=== PATIENT | male | born 1990 | race Caucasian/White ===

== ENCOUNTER 2016-10-04 01:25 | Inpatient (IN) | payer BC ==
[~2016-10-04] VITALS: Ht 198.1 cm; Wt 61.1 kg
[2016-10-04] VITALS (15 sets, daily range): BP systolic 82–141; BP diastolic 48–92; PULSE 70–116; RESP 16–18; TEMP 97.8–100; O2SAT 96–100
[~2016-10-04 01:25] MED LIST: ACET5SOL5 PO; ALBU8I INH; BENZ100 PO; ZITH250T PO; ZOFR4TAB3 SL
[2016-10-04] MEDS ORDERED: SERO200T PO (01:49)
[2016-10-04] MEDS ORDERED: PROZ20CA11 PO (01:49)
[2016-10-04 02:19] LABS: AUTOMATED NEUTROPHIL # 12.6 TH/MM3 (1.8-7.7); BASOPHIL # 0.1 TH/MM3 (0-0.2); BASOPHIL % 0.5 % (0.0-2.0); EOSINOPHIL # 0.8 TH/MM3 (0-0.4); EOSINOPHIL % 4.5 % (0.0-4.0); HEMATOCRIT 45.5 % (39.0-51.0); HEMO FLAGS DIFF FINAL; LYMPH % 17.9 % (9.0-44.0); LYMPHOCYTE # 3.2 TH/MM3 (1.0-4.8); MEAN CELL VOLUME 88.6 FL (80.0-100.0); MEAN CORPUSCULAR HEMOGLOBIN 30.6 PG (27.0-34.0); MEAN CORPUSCULAR HGB CONC 34.6 % (32.0-36.0); MONO % 7.3 % (0.0-8.0); NEUT % 69.8 % (16.0-70.0); PLATELET COUNT 279 TH/MM3 (150-450); RED BLOOD COUNT 5.13 MIL/MM3 (4.50-5.90); RED CELL DISTRIBUTION WIDTH 13.7 % (11.6-17.2); WHITE BLOOD COUNT 18.1 TH/MM3 (4.0-11.0)
[2016-10-04 02:29] LABS: BLOOD, URINE NEG (NEG); COMMENT (UR) CULT NOT INDICATED; CULTURE IF INDICATED CULT NOT INDICATED; GLUCOSE,URINE NEG (NEG); KETONE, URINE NEG (NEG); MUCUS URINE FEW /lpf (OCC); NITRITE,URINE NEG (NEG); SQUAMOUS EPITHELIAL CELL URINE <1 /hpf (0-5); URINE COLOR YELLOW (YELLW/STRAW)
[2016-10-04 02:35] LABS: ALT (GPT) 171 U/L (12-78); ANION GAP 7 MEQ/L (5-15); AST (GOT) 60 U/L (15-37); BICARBONATE 28.7 MEQ/L (21.0-32.0); BLOOD UREA NITROGEN 6 MG/DL (7-18); CHLORIDE 106 MEQ/L (98-107); GLOMERULAR FILTRATION RATE 93 ML/MIN (>89); POTASSIUM 3.2 MEQ/L (3.5-5.1); SODIUM (NA) 142 MEQ/L (136-145)
--- NOTE | 2016-10-04 02:35 | PD ---
HPI Chief Complaint: OD/ Ingestion Time Seen by Provider: 01:44 Travel History International Travel<30 days: No Contact w/Intl Traveler<30days: No Traveled to known affect area: No History of Present Illness HPI 26-year-old male was brought in by his sister for medication overdose. Patient states that he drank a large size of a bottle of Robitussin about 40 minutes prior to arrival. Patient states that he also took a handful of Benadryl tablets at the same time. Patient states that he is feeling drowsy. Patient states that he has mild headache. Patient states that he has mild intermittent chest pain or shortness of breath. Patient states that he has some abdominal cramping. Patient states that he has nausea but no vomiting or diarrhea. Patient denies any fever chills. Patient denies any back pain. Patient denies any focal weakness or numbness of the extremity. Patient denies any alcohol or illicit drug abuse. Patient states that he smoked pot once in a while. Patient states that he is feeling depressed recently. Patient has history of anxiety, asthma, hepatitis C, kidney stone and migraine and seizure. Questionable history of ulcerative colitis. PFSH Past Medical History Hx Anticoagulant Therapy: No ADHD: Yes Asthma: Yes (Patient states last attack in November of 2014) Bipolar Disorder: Yes Anxiety: Yes Depression: Yes Heart Rhythm Problems: No Cardiovascular Problems: Yes (HTN) High Cholesterol: No Chemotherapy: No Chest Pain: No Congestive Heart Failure: No COPD: No Cerebrovascular Accident: No Diabetes: No Diminished Hearing: No Endocrine: No Gastrointestinal Disorders: Yes (ULCERS, COLITIS) Genitourinary: Yes Headaches: Yes Hepatitis: Yes (C) Hypertension: Yes Immune Disorder: No Implanted Vascular Access Dvce: No Kidney Stones: Yes (Passed stones at age 20) Musculoskeletal: Yes Neurologic: Yes Psychiatric: Yes (Inpatient, outpatient, diagnosis and psychotropic medications ) Reproductive: Yes (per pt-told at age 20 he was infertile d/t Meth use but has child ) Respiratory: Yes (SPORTS INDUCED ASTHMA) Immunizations Current: Yes Migraines: Yes Seizures: Yes (Per patient, photosensitive epilepsy dx in 2014 due to weaning off of Xanax) Sleep Apnea: No Ulcer: Yes (UPPER AND LOWER GI BLEEDS ) Past Surgical History Abdominal Surgery: Yes (GI study for ulcers) Cardiac Surgery: No Ear Surgery: No Endocrine Surgery: No Eye Surgery: No Genitourinary Surgery: No Gynecologic Surgery: No Hysterectomy: No Oral Surgery: Yes ([place] Tooth pulled in 2012) Thoracic Surgery: No Other Surgery: Yes Social History Alcohol Use: No Tobacco Use: Yes (1PPD) Substance Use: No (MARIJUANA, hx of RX DRUGS) Allergies-Medications (Allergen,Severity, Reaction): Coded Allergies: Geodon (Verified Allergy, Severe, Anaphylaxis, 10/04/16) Penicillin (Verified Allergy, Severe, Anaphylaxis, 10/04/16) Codeine (Verified Allergy, Intermediate, ITCHING, 10/04/16) Ultram (Verified Allergy, Intermediate, GI UPSET, 10/04/16) Heparin (Unverified Allergy, Mild, 10/04/16) Compazine (Verified Allergy, Unknown, rash, 10/04/16) Levaquin (Verified Allergy, Unknown, 10/04/16) Reported Meds & Prescriptions Reported Meds & Active Scripts Active Reported Prozac (Fluoxetine HCl) 20 Mg Cap 20 Mg PO DAILY Seroquel (Quetiapine Fumarate) 200 Mg Tab 200 Mg PO BID Review of Systems General / Constitutional: No: Fever Eyes: No: Visual changes HENT: No: Headaches Cardiovascular: No: Chest Pain or Discomfort Respiratory: No: Shortness of Breath Gastrointestinal: No: Abdominal Pain Genitourinary: No: Dysuria Musculoskeletal: No: Pain Skin: No Rash Neurologic: No: Weakness Psychiatric: No: Depression Endocrine: No: Polydipsia Hematologic/Lymphatic: No: Easy Bruising Physical Exam Narrative GENERAL: Well-nourished, well-developed patient. SKIN: Warm and dry. HEAD: Normocephalic. EYES: No scleral icterus. No injection or drainage. Pupils 3 mm equal reactive. NECK: Supple, trachea midline. No JVD or lymphadenopathy. CARDIOVASCULAR: Regular rate and rhythm without murmurs, gallops, or rubs. RESPIRATORY: Breath sounds equal bilaterally. No accessory muscle use. GASTROINTESTINAL: Abdomen soft, non-tender, nondistended. MUSCULOSKELETAL: No cyanosis, or edema. BACK: Nontender without obvious deformity. No CVA tenderness. Data Data Last Documented VS Vital Signs Date Time Temp Pulse Resp B/P Pulse Ox O2 Delivery O2 Flow Rate FiO2 10/04/16 02:13 88 18 120/82 96 Room Air 10/04/16 01:27 98.4 Orders Electrocardiogram (10/04/16 02:03) Alcohol (Ethanol) (10/04/16 02:03) Basic Metabolic Panel (Bmp) (10/04/16 02:03) Complete Blood Count With Diff (10/04/16 02:03) Comprehensive Metabolic Panel (10/04/16 02:03) Drug Screen, Random Urine (10/04/16 02:03) Salicylates (Aspirin) (10/04/16 02:03) Tylenol (Acetaminophen) (10/04/16 02:03) Urinalysis - C+S If Indicated (10/04/16 02:03) Iv Access Insert/Monitor (10/04/16 02:03) Ecg Monitoring (10/04/16 02:03) Oximetry (10/04/16 02:03) Psych Screen (10/04/16 02:03) Labs Laboratory Tests Test 10/04/16 02:10 White Blood Count 18.1 TH/MM3 Red Blood Count 5.13 MIL/MM3 Hemoglobin 15.7 GM/DL Hematocrit 45.5 % Mean Corpuscular Volume 88.6 FL Mean Corpuscular Hemoglobin 30.6 PG Mean Corpuscular Hemoglobin 34.6 % Concent Red Cell Distribution Width 13.7 % Platelet Count 279 TH/MM3 Mean Platelet Volume 9.6 FL Neutrophils (%) (Auto) 69.8 % Lymphocytes (%) (Auto) 17.9 % Monocytes (%) (Auto) 7.3 % Eosinophils (%) (Auto) 4.5 % Basophils (%) (Auto) 0.5 % Neutrophils # (Auto) 12.6 TH/MM3 Lymphocytes # (Auto) 3.2 TH/MM3 Monocytes # (Auto) 1.3 TH/MM3 Eosinophils # (Auto) 0.8 TH/MM3 Basophils # (Auto) 0.1 TH/MM3 CBC Comment DIFF FINAL Differential Comment Urine Color YELLOW Urine Turbidity CLOUDY Urine pH 7.0 Urine Specific Presto 1.017 Urine Protein NEG mg/dL Urine Glucose (UA) NEG mg/dL Urine Ketones NEG mg/dL Urine Occult Blood NEG Urine Nitrite NEG Urine Bilirubin NEG Urine Urobilinogen 4.0 MG/DL Urine Leukocyte Esterase NEG Urine Squamous Epithelial <1 /hpf Cells Urine Amorphous Sediment MOD Urine Mucus FEW /lpf Microscopic Urinalysis Comment CULT NOT INDICATED Sodium Level 142 MEQ/L Potassium Level 3.2 MEQ/L Chloride Level 106 MEQ/L Carbon Dioxide Level 28.7 MEQ/L Anion Gap 7 MEQ/L Blood Urea Nitrogen 6 MG/DL Creatinine 0.99 MG/DL Estimat Glomerular Filtration 93 ML/MIN Rate Random Glucose 113 MG/DL Calcium Level 9.3 MG/DL Total Bilirubin 0.7 MG/DL Aspartate Amino Transf 60 U/L (AST/SGOT) Alanine Aminotransferase 171 U/L (ALT/SGPT) Alkaline Phosphatase 81 U/L Total Protein 7.5 GM/DL Albumin 4.1 GM/DL Salicylates Level 2.4 MG/DL Urine Opiates Screen NEG Acetaminophen Level LESS THAN 2.0 MCG/ML Urine Barbiturates Screen NEG Urine Amphetamines Screen NEG Urine Benzodiazepines Screen NEG Urine Cocaine Screen NEG Urine Cannabinoids Screen POS Ethyl Alcohol Level LESS THAN 3 MG/DL MDM Medical Decision Making Medical Screen Exam Complete: Yes Emergency Medical Condition: Yes Interpretation(s) 2:35 AM. EKG shows sinus rhythm nonspecific ST-T wave change. Differential Diagnosis Differential diagnosis including drug overdose, depression, suicidal. Narrative Course 26-year-old male with overdose on Robitussin and Benadryl. Poison control contacted. Advised observation. 3:03 AM. Patient is medically cleared for psychiatric evaluation and disposition. Diagnosis Primary Impression: Intentional drug overdose Qualified Code: T50.902A - Intentional drug overdose, initial encounter Kevin Moon MD Oct 04, 2016 02:35
[2016-10-04 02:38] LABS: ALKALINE PHOSPHATASE 81 U/L (45-117); TOTAL BILIRUBIN ADULT 0.7 MG/DL (0.2-1.0)
[2016-10-04 02:40] LABS: ACETAMINOPHEN LESS THAN 2.0 MCG/ML (10.0-30.0); AMPHETAMINE, URINE NEG (NEG); BARBITURATES, URINE NEG (NEG); COCAINE, URINE NEG (NEG)
[2016-10-04] MEDS ORDERED: SODIUM CHLOR 0.9% 1000 ML INJ 1,000 ML IV ONE (06:45)
[2016-10-04] MEDS ORDERED: POTASSIUM CHLORIDE 20 MEQ CONTROLLED RELEASE TAB PO ONE (07:15)
--- NOTE | 2016-10-04 08:31 | EKG ---
Date Performed: 10/04/2016 Time Performed: 01:48:12 PTAGE: 26 years EKG: Sinus rhythm POSSIBLE RIGHT ATRIAL ENLARGEMENT POSSIBLE LEFT ATRIAL ENLARGEMENT POSSIBLE RIGHT VENTRICULAR CONDUC TION DELAY BORDERLINE ECG NO PREVIOUS TRACING DOCTOR: Harjinder Ruelas Interpretating Date/Time 10/04/2016 08:29:28
[2016-10-05 02:10] VITALS: BP 108/57; PULSE 73; RESP 18; O2SAT 98
[2016-10-05 06:27] VITALS: BP 131/66; PULSE 76; RESP 18; TEMP 97.1; O2SAT 98
--- NOTE | 2016-10-05 10:38 | PD ---
History of Present Illness Chief Complaint: OD/ Ingestion Time Seen by Provider: 10:00 Travel History International Travel<30 Days: No Contact w/Intl Traveler<30days: No Known affected area: No Legal Status Legal Status: Voluntary History of Present Illness: History of Present Illness HPI 26-year-old male with history of substance abuse, substance induced mood disorder, depressive disorder, nos who was brought in by his sister after an alleged overdose. As per patient states that he drank a large size of a bottle of Robitussin about 40 minutes prior to arrival to ED. Patient states that he also took a handful of Benadryl tablets at the same time. Patient has been monitored in [facility] and he has not presented any behavioral concerns or suicidality. Patient's toxicology is positive for cannabinoids. He states that he had been drinking heavily up until 1 and 1/2 week ago. Again he is vague regarding quantities. As per EMR review this patient has had several visit to ed as well as admissions to [facility] for suicidal gestures. Last admission was February 2015 . He reports that he stopped outpatient treatment at [facility] due to financial concerns. He reports he has not had medications in 4 months but unable to tell me what medications he had been taking. Patient is seen in [facility]. Asleep . He awakens easily. He is alert, oriented, decreased eye contact. He states " I don't want to be here". Upon questioning he states " I want to be . I don't want to live any more". Reports that he has been experiencing stressors involving having found out his is cheating on him, not allowing him to see his children, quit his job one week ago and being homeless. Mood is described as depressed, hopeless. Endorses continued suicidal ideation and states " That's all I have been thinking about . I was sitting with a gun in my mouth for the past week". PFSH Past Medical History Hx Anticoagulant Therapy: No ADHD: Yes Asthma: Yes (Patient states last attack in November of 2014) Bipolar Disorder: Yes Anxiety: Yes Depression: Yes Heart Rhythm Problems: No Cardiovascular Problems: Yes (HTN) High Cholesterol: No Chemotherapy: No Chest Pain: No Congestive Heart Failure: No COPD: No Cerebrovascular Accident: No Diabetes: No Diminished Hearing: No Endocrine: No Gastrointestinal Disorders: Yes (ULCERS, COLITIS) Genitourinary: Yes Headaches: Yes Hepatitis: Yes (C) Hypertension: Yes Immune Disorder: No Implanted Vascular Access Dvce: No Kidney Stones: Yes (Passed stones at age 20) Musculoskeletal: Yes Neurologic: Yes Psychiatric: Yes (Inpatient, outpatient, diagnosis and psychotropic medications ) Reproductive: Yes (per pt-told at age 20 he was infertile d/t Meth use but has child ) Respiratory: Yes (SPORTS INDUCED ASTHMA) Immunizations Current: Yes Migraines: Yes Seizures: Yes (Per patient, photosensitive epilepsy dx in 2013 due to weaning off of Xanax) Sleep Apnea: No Ulcer: Yes (UPPER AND LOWER GI BLEEDS ) Past Surgical History Abdominal Surgery: Yes (GI study for ulcers) Cardiac Surgery: No Ear Surgery: No Endocrine Surgery: No Eye Surgery: No Genitourinary Surgery: No Gynecologic Surgery: No Hysterectomy: No Oral Surgery: Yes ([place] Tooth pulled in 2011) Thoracic Surgery: No Other Surgery: Yes Psychiatric History Psychiatric History Hx Psychiatric Treatment: HX OF Bipolar Disorder, PTSD, and ADHD as per reynaldo History of Inpatient Treatment: Yes ([facility]. Reports at least 6 hosp in [facility]. ) Social History male. has 2 children. Unemployed. Hx Alcohol Use: No Hx Tobacco Use: Yes (1PPD) Hx Substance Use: Yes (MARIJUANA, hx of RX DRUGS) Substance Use Type: Alcohol, Marijuana, Benzos (Valium,Xanax), Cough-Cold Pills Other Substances Used: Patient admits to weekly binge drinking Hx of Substance Use Treatment: Yes Family Psychiatric History None reported Allergies-Medications (Allergen,Severity, Reaction): Coded Allergies: Geodon (Verified Allergy, Severe, Anaphylaxis, 10/04/16) Penicillin (Verified Allergy, Severe, Anaphylaxis, 10/04/16) Codeine (Verified Allergy, Intermediate, ITCHING, 10/04/16) Ultram (Verified Allergy, Intermediate, GI UPSET, 10/04/16) Heparin (Unverified Allergy, Mild, 10/04/16) Compazine (Verified Allergy, Unknown, rash, 10/04/16) Levaquin (Verified Allergy, Unknown, 10/04/16) Reported Meds & Prescriptions Reported Meds & Active Scripts Active Reported Prozac (Fluoxetine HCl) 20 Mg Cap 20 Mg PO DAILY Seroquel (Quetiapine Fumarate) 200 Mg Tab 200 Mg PO BID Review of Systems Except as stated in HPI: all other systems reviewed are Neg Psychiatric: COMPLAINS OF: Depression, Suicidal Ideation Exam Alert: Yes [place]: Person (ox4) Mood: Depressed Affect: Other (tearful) Speech: Clear, Logical Eye Contact: Indirect Memory Intact: Comment (not impaired) Hallucinations: Other (negative) Delusions: No Suicidal: Ideation (shoot himself, take pills ) Homicidal: Ideation (negative) Insight/Judgement poor. poor MDM Medical Decision Making Medical Record Reviewed: Yes Assessment/Plan 26 year old male under a voluntary status who alledgedly took an overdose of cough medication as well as Benadryl in a suicidal gesture. He has a hx of previous suicide attempts as well as hx of substance induced mood disorder. Patient admits to increase in use of marijuana as well as stressors related to marital infidelity. At this time patient patient continues to endorse suicidal ideation and depression. Patient will be admitted to [facility] for stabilization, further observation, safety as well as to restrt psychiatric medications. . Orders Diet Regular Basic (10/04/16 Dinner) Diet Regular Basic (10/05/16 Breakfast) Results Vital Signs Date Time Temp Pulse Resp B/P Pulse Ox O2 Delivery O2 Flow Rate FiO2 10/05/16 06:27 97.1 76 18 131/66 98 Room Air 10/05/16 02:10 73 18 108/57 98 Room Air 10/04/16 22:00 84 18 98/56 100 Room Air 10/04/16 17:55 82 18 116/69 97 Room Air 10/04/16 15:30 100.0 77 18 121/73 99 Room Air 10/04/16 15:15 97.8 88 17 106/68 99 10/04/16 12:40 97.8 76 16 105/61 99 Room Air 10/04/16 11:33 97.8 78 18 90/68 99 Room Air Diagnosis Primary Impression: Substance induced mood disorder Additional Impression: Intentional drug overdose Admitting Information Admitting Physician Requests: Admit (Dr. Lorenzo) Problem Qualifiers Additional Impression: Intentional drug overdose Qualified Code: T50.902A - Intentional drug overdose, initial encounter Shwetha Nolan ARN Oct 05, 2016 10:38
[2016-10-05] MEDS ORDERED: MAGNESIUM HYDROXIDE SUSP 30 ML CUP PO PRN (11:15)
[2016-10-05] MEDS ORDERED: ALUMINUM/MAGNESIUM/SIMETH 30 ML CUP PO PRN (11:15)
[2016-10-05] MEDS ORDERED: ACETAMINOPHEN 325 MG TAB PO PRN (11:15)
[2016-10-05] MEDS ORDERED: LORazepam 2 MG TAB PO ONE (12:30)
[2016-10-05 12:40] VITALS: BP 127/71; PULSE 82; RESP 18; TEMP 98.3; O2SAT 99
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
[2016-10-05] MEDS: FLUoxetine HCL 20 MG CAP PO SCH (16:19)
[2016-10-05] MEDS: QUEtiapine FUMARATE 100 MG TAB PO SCH ×2 (16:20→20:50)
[2016-10-05 20:48] VITALS: BP 128/74; PULSE 76; RESP 16; TEMP 98.4; O2SAT 100
[2016-10-05] MEDS: LORazepam 0.5 MG TAB PO PRN (21:25)
[2016-10-06 06:01] VITALS: BP 110/77; PULSE 83; RESP 16; TEMP 97.4; O2SAT 100
[2016-10-06 08:06] LABS: ANION GAP 4 MEQ/L (5-15); BICARBONATE 30.2 MEQ/L (21.0-32.0); BLOOD UREA NITROGEN 12 MG/DL (7-18); CHLORIDE 107 MEQ/L (98-107); GLOMERULAR FILTRATION RATE 104 ML/MIN (>89); SODIUM (NA) 141 MEQ/L (136-145)
[2016-10-06 08:08] LABS: HDL CHOLESTEROL 32.8 MG/DL (40.0-60.0); LDL CHOLESTEROL 48 MG/DL (0-99)
[2016-10-06] MEDS: FLUoxetine HCL 20 MG CAP PO SCH (09:11)
[2016-10-06] MEDS: QUEtiapine FUMARATE 100 MG TAB PO SCH ×2 (09:11→20:37)
--- NOTE | 2016-10-06 10:30 | HHI.PYPN ---
Subjective Remarks Patient was seen and discussed with the staff occupational therapist. Patient claimed that he still has been feeling depressed worried about his family and future. But he could be reassured. He feels safe in the hospital. He slept okay. The medication is helping him. No side effects were complained. No behavior problem reported. Continue with the same treatment Review of Systems Except as stated in HPI: all other systems reviewed are Neg Psychiatric: COMPLAINS OF: Mood changes, Depression Objective Alert: Yes [place]: Person (ox4) Mood: Depressed Affect: Blunted Memory Intact: Comment (not impaired) Hallucinations: Other (negative) Delusions: No Delusion Type: Other Suicidal: Ideation (patient feels safe in the hospital denied any suicidal ideation or plan but feels sad) Homicidal: Ideation (negative) Insight/Judgement Fair Remarks Attention and concentration improving. Gait normal. Language normal. Fund of knowledge average Labs Test 10/06/16 07:03 Sodium Level 141 MEQ/L Potassium Level 4.0 MEQ/L Chloride Level 107 MEQ/L Carbon Dioxide Level 30.2 MEQ/L Anion Gap 4 MEQ/L Blood Urea Nitrogen 12 MG/DL Creatinine 0.90 MG/DL Estimat Glomerular Filtration 104 ML/MIN Rate Random Glucose 85 MG/DL Calcium Level 8.8 MG/DL Triglycerides Level 81 MG/DL Cholesterol Level 97 MG/DL LDL Cholesterol 48 MG/DL HDL Cholesterol 32.8 MG/DL Cholesterol/HDL Ratio 2.95 RATIO Vitals/IOs Vital Signs Date Time Temp Pulse Resp B/P Pulse Ox O2 Delivery O2 Flow Rate FiO2 10/06/16 06:01 97.4 83 16 110/77 100 10/05/16 06:27 Room Air Assessment & Plan Problem List: (1) Major depression, recurrent, chronic ICD Code: F33.9 (2) Substance induced mood disorder ICD Code: F19.94 Assessment & Plan Estimated LOS: days Justification for Cont. Inpt. Risk for safety and decompensation Request HC Surrog/Guard Advoc?: No Jerson Lorenzo MD Oct 06, 2016 10:30
[2016-10-06] MEDS: NICOTINE 21 MG/24 HR PATCH TD SCH (11:00)
[2016-10-06] MEDS: LORazepam 0.5 MG TAB PO PRN ×2 (14:05→21:23)
[2016-10-06 15:54] LABS: HEMOGLOBIN A1a 0.9 %; HEMOGLOBIN A1b 1.4 %; HEMOGLOBIN LA1C 1.8 %; HEMOGLOBIN P3 3.4 %
[2016-10-06 20:51] VITALS: BP 118/72; PULSE 106; RESP 16; TEMP 98.2; O2SAT 98
[2016-10-07 06:37] VITALS: BP 116/80; PULSE 89; RESP 18; TEMP 98.2; O2SAT 99
[2016-10-07] MEDS: NICOTINE 21 MG/24 HR PATCH TD SCH (08:41)
[2016-10-07] MEDS: FLUoxetine HCL 20 MG CAP PO SCH (08:41)
[2016-10-07] MEDS: QUEtiapine FUMARATE 100 MG TAB PO SCH (08:41)
[2016-10-07] MEDS: LORazepam 0.5 MG TAB PO PRN ×2 (08:57→18:36)
--- NOTE | 2016-10-07 10:15 | HHI.PYPN ---
Subjective Remarks Patient was seen and discussed with the bellstaff. Patient reported that he still has been feeling depressed frustrated isolated worried about his children but he could be reassured patient also reported that he has nightmares about losing his children and has been crying. He is also getting easily upset mad and occasionally admitted to hearing voices. His appetite is poor. No behavior or management problem reported. He was encouraged to participate in all treatment activity. And will increase his medication. Review of Systems Except as stated in HPI: all other systems reviewed are Neg Psychiatric: COMPLAINS OF: Mood changes, Depression, Hallucinations Objective Alert: Yes [place]: Person (ox4) Mood: Depressed Affect: Blunted Memory Intact: Comment (not impaired) Hallucinations: Other (occasionally hears voices and has nightmare) Delusions: No Delusion Type: Other Suicidal: Ideation (patient feels safe in the hospital denied any suicidal ideation or plan but feels sad) Homicidal: Ideation (negative) Insight/Judgement Fair to limited Vitals/IOs Vital Signs Date Time Temp Pulse Resp B/P Pulse Ox O2 Delivery O2 Flow Rate FiO2 10/07/16 06:37 98.2 89 18 116/80 99 10/05/16 06:27 Room Air Intake and Output 10/06/16 10/06/16 10/07/16 08:00 16:00 00:00 Intake Total 240 ml Balance 240 ml Assessment & Plan Problem List: (1) Major depression, recurrent, chronic ICD Code: F33.9 (2) Substance induced mood disorder ICD Code: F19.94 Assessment & Plan Estimated LOS: days Justification for Cont. Inpt. Risk of decompensation and safety issue Request HC Surrog/Guard Advoc?: No Jerson Lorenzo MD Oct 07, 2016 10:15
[2016-10-07] MEDS: QUEtiapine FUMARATE 200 MG TAB PO SCH ×2 (13:56→18:36)
[2016-10-07 19:00] VITALS: BP 134/76; PULSE 100; RESP 18; TEMP 98.3; O2SAT 97
[2016-10-08 05:37] VITALS: BP 97/55; PULSE 71; RESP 16; TEMP 98.1; O2SAT 98
[2016-10-08] MEDS: QUEtiapine FUMARATE 200 MG TAB PO SCH ×3 (08:21→17:01)
[2016-10-08] MEDS: FLUoxetine HCL 20 MG CAP PO SCH (08:21)
[2016-10-08] MEDS: NICOTINE 21 MG/24 HR PATCH TD SCH (08:22)
[2016-10-08] MEDS: LORazepam 0.5 MG TAB PO PRN ×2 (08:58→17:17)
--- NOTE | 2016-10-08 10:18 | HHI.PYPN ---
Subjective Remarks Patient was seen and discussed with the wait staff. Patient reported that he has been feeling more depressed and sad because of his son's birthday today he still has lot of nightmares that frustrates him. But he is not crying. He is trying to do the best that he can and accept the situation that he is in. Denied any suicidal ideation intentions or plan. Denied any active auditory or visual hallucinations. No behavior or management problem reported. Continue with the same treatment. Review of Systems Except as stated in HPI: all other systems reviewed are Neg Psychiatric: COMPLAINS OF: Mood changes, Depression Objective Alert: Yes [place]: Person (ox4) Mood: Depressed Affect: Blunted Memory Intact: Comment (not impaired) Hallucinations: Other (occasionally hears voices and has nightmare) Delusions: No Delusion Type: Other Suicidal: Ideation (patient feels safe in the hospital denied any suicidal ideation or plan but feels sad) Homicidal: Ideation (negative) Insight/Judgement Limited Vitals/IOs Vital Signs Date Time Temp Pulse Resp B/P Pulse Ox O2 Delivery O2 Flow Rate FiO2 10/08/16 05:37 98.1 71 16 97/55 98 10/05/16 06:27 Room Air Assessment & Plan Problem List: (1) Major depression, recurrent, chronic ICD Code: F33.9 (2) Substance induced mood disorder ICD Code: F19.94 Assessment & Plan Estimated LOS: days Justification for Cont. Inpt. Monitoring the medication and risk of decompensation Request HC Surrog/Guard Advoc?: No Jerson Lorenzo MD Oct 08, 2016 10:18
[2016-10-08 19:26] VITALS: BP 131/74; PULSE 119; RESP 16; TEMP 98.5; O2SAT 98
[2016-10-09 05:31] VITALS: BP 111/56; PULSE 70; RESP 18; TEMP 97.3; O2SAT 98
[2016-10-09] MEDS: FLUoxetine HCL 20 MG CAP PO SCH (08:51)
[2016-10-09] MEDS: QUEtiapine FUMARATE 200 MG TAB PO SCH ×3 (08:51→20:44)
[2016-10-09] MEDS: NICOTINE 21 MG/24 HR PATCH TD SCH (08:51)
[2016-10-09] MEDS: LORazepam 0.5 MG TAB PO PRN (09:24)
--- NOTE | 2016-10-09 17:34 | HHI.PYPN ---
Subjective Remarks Pt seen and discussed with staff. Pt c/o of continued depression and anxiety. He denies SI/HI. He reports high anxiety today due to finding out is and other stressors. No medication side effects. Objective Alert: Yes [place]: Person (ox4) Mood: Anxious, Depressed Affect: Blunted Memory Intact: Comment (not impaired) Hallucinations: Other (occasionally hears voices and has nightmare) Delusions: No Delusion Type: Other (none) Suicidal: Ideation (denies) Homicidal: Ideation (denies) Insight/Judgement poor Vitals/IOs Vital Signs Date Time Temp Pulse Resp B/P Pulse Ox O2 Delivery O2 Flow Rate FiO2 10/09/16 05:31 97.3 70 18 111/56 98 Assessment & Plan Problem List: (1) Major depression, recurrent, chronic ICD Code: F33.9 (2) Substance induced mood disorder ICD Code: F19.94 Assessment & Plan Continue current tx plan. Vistaril for anxiety. Estimated LOS: days Justification for Cont. Inpt. risk of decompensation Request HC Surrog/Guard Advoc?: No Narcisa Quarles MD Oct 09, 2016 17:34
[2016-10-09 18:54] VITALS: BP 141/92; PULSE 131; RESP 18; TEMP 98.3; O2SAT 98
[2016-10-09] MEDS: hydrOXYzine PAMOATE 25 MG CAP PO PRN (21:17)
[2016-10-10 06:00] VITALS: BP 144/56; PULSE 79; RESP 17; TEMP 97.7; O2SAT 97
[2016-10-10] MEDS: NICOTINE 21 MG/24 HR PATCH TD SCH (08:25)
[2016-10-10] MEDS: QUEtiapine FUMARATE 200 MG TAB PO SCH ×3 (08:25→18:14)
[2016-10-10] MEDS: FLUoxetine HCL 20 MG CAP PO SCH (08:25)
[2016-10-10] MEDS: hydrOXYzine PAMOATE 25 MG CAP PO PRN ×2 (09:45→18:26)
--- NOTE | 2016-10-10 12:03 | HHI.PYPN ---
Subjective Remarks Pt seen and discussed with staff. He is tearful and states that he called his and heard another man in the background. He states that his refused to take his phone call or allow him to speak with his children. He states that the thought of never seeing his kids makes him want to , but denies active SI plan. Supportive psychotherapy interventions provided. He is compliant with medications and denies side effects. Poor coping skills. He attended AA group voluntarily yesterday. No side effects from vistaril and reports effective. Objective Alert: Yes [place]: Person, Place, Date, Situation Mood: Anxious, Depressed Affect: Other (tearful) Memory Intact: Comment (intact) Hallucinations: Other (occasionally hears voices and has nightmare) Delusions: No Delusion Type: Other (none) Suicidal: Ideation (denies active plan, but reports vague ideation related to family stressors) Homicidal: Ideation (denies) Insight/Judgement poor Vitals/IOs Vital Signs Date Time Temp Pulse Resp B/P Pulse Ox O2 Delivery O2 Flow Rate FiO2 10/10/16 06:00 97.7 79 17 144/56 97 Assessment & Plan Problem List: (1) Major depression, recurrent, chronic ICD Code: F33.9 (2) Substance induced mood disorder ICD Code: F19.94 Assessment & Plan Continue current tx plan. Estimated LOS: days Justification for Cont. Inpt. impairments in safety Request HC Surrog/Guard Advoc?: No Narcisa Quarles MD Oct 10, 2016 12:03
[2016-10-10 18:33] VITALS: BP 124/77; PULSE 110; RESP 18; TEMP 98.3; O2SAT 97
[2016-10-11 05:16] VITALS: BP 107/52; PULSE 88; RESP 16; TEMP 97.6; O2SAT 98
[2016-10-11] MEDS: FLUoxetine HCL 20 MG CAP PO SCH (08:35)
[2016-10-11] MEDS: QUEtiapine FUMARATE 200 MG TAB PO SCH ×3 (08:35→16:43)
[2016-10-11] MEDS: NICOTINE 21 MG/24 HR PATCH TD SCH (08:36)
[2016-10-11] MEDS: hydrOXYzine PAMOATE 25 MG CAP PO PRN (09:23)
[2016-10-11] MEDS: LORazepam 0.5 MG TAB PO PRN ×3 (11:10→21:22)
--- NOTE | 2016-10-11 11:14 | HHI.PYPN ---
Subjective Remarks Patient was seen and discussed with the medical staff coordinator. Patient reported that he still has been feeling anxious nervous and depressed frustrated. Tends to isolate himself and keeps to himself. But no behavior or management problem reported. He claimed that the medication seems to be helping but it doesn't last long enough to calm his anxiety down. He could be reassured. Denied any suicidal ideation intentions or plan. Continue with the same treatment Review of Systems Except as stated in HPI: all other systems reviewed are Neg Psychiatric: COMPLAINS OF: Mood changes, Depression Objective Alert: Yes [place]: Person, Place, Date, Situation Mood: Anxious, Depressed Affect: Other (tearful) Memory Intact: Comment (intact) Hallucinations: Other (occasionally hears voices and has nightmare) Delusions: No Delusion Type: Other (none) Suicidal: Ideation (denies active plan, but reports vague ideation related to family stressors) Homicidal: Ideation (denies) Insight/Judgement Fair Vitals/IOs Vital Signs Date Time Temp Pulse Resp B/P Pulse Ox O2 Delivery O2 Flow Rate FiO2 10/11/16 05:16 97.6 88 16 107/52 98 Assessment & Plan Problem List: (1) Major depression, recurrent, chronic ICD Code: F33.9 (2) Substance induced mood disorder ICD Code: F19.94 Assessment & Plan Estimated LOS: days Justification for Cont. Inpt. Monitoring of the medication and stabilization of the mood. Request HC Surrog/Guard Advoc?: No Jerson Lorenzo MD Oct 11, 2016 11:14
[2016-10-11 18:57] VITALS: BP 110/63; PULSE 109; RESP 18; TEMP 98; O2SAT 99
[2016-10-12 06:16] VITALS: BP 111/56; PULSE 72; RESP 16; TEMP 98.2; O2SAT 97
[2016-10-12] MEDS: FLUoxetine HCL 20 MG CAP PO SCH (08:22)
[2016-10-12] MEDS: QUEtiapine FUMARATE 200 MG TAB PO SCH ×4 (08:22→20:24)
[2016-10-12] MEDS: NICOTINE 21 MG/24 HR PATCH TD SCH (08:22)
[2016-10-12] MEDS: LORazepam 0.5 MG TAB PO PRN ×2 (08:25→17:12)
[2016-10-12] MEDS: hydrOXYzine PAMOATE 25 MG CAP PO PRN ×2 (13:01→21:29)
--- NOTE | 2016-10-12 14:24 | HHI.PYPN ---
Subjective Remarks Patient was seen and discussed with the staff physician. Patient reported that he is still been feeling depressed and frustrated. He also complains about feeling anxious and nervous and wants more anti-anxiety. No behavior or management problem reported. He is missing his children. Passive thoughts of suicide if he doesn't get to see his children. He could be reassured. Denied any active auditory or visual hallucinations. We'll adjust the medication continue with the same treatment Review of Systems Except as stated in HPI: all other systems reviewed are Neg Psychiatric: COMPLAINS OF: Mood changes, Depression Objective Alert: Yes [place]: Person, Place, Date, Situation Mood: Anxious, Depressed Affect: Other (tearful) Memory Intact: Comment (intact) Hallucinations: Other (occasionally hears voices and has nightmare) Delusions: No Delusion Type: Other (none) Suicidal: Ideation (denies active plan, but reports vague ideation related to family stressors) Homicidal: Ideation (denies) Insight/Judgement Limited Vitals/IOs Vital Signs Date Time Temp Pulse Resp B/P Pulse Ox O2 Delivery O2 Flow Rate FiO2 10/12/16 06:16 98.2 72 16 111/56 97 Assessment & Plan Problem List: (1) Major depression, recurrent, chronic ICD Code: F33.9 (2) Substance induced mood disorder ICD Code: F19.94 Assessment & Plan Estimated LOS: days Justification for Cont. Inpt. Monitoring of the medication to stabilize his mood and lift his depression Request HC Surrog/Guard Advoc?: No Jerson Lorenzo MD Oct 12, 2016 14:24
[2016-10-12 20:12] VITALS: BP 107/66; PULSE 88; RESP 18; TEMP 98.5; O2SAT 98
[2016-10-13 05:46] VITALS: BP 115/59; PULSE 76; RESP 18; TEMP 97.5; O2SAT 100
[2016-10-13] MEDS: NICOTINE 21 MG/24 HR PATCH TD SCH (09:00)
[2016-10-13] MEDS: QUEtiapine FUMARATE 200 MG TAB PO SCH ×4 (09:24→20:25)
[2016-10-13] MEDS: hydrOXYzine PAMOATE 25 MG CAP PO PRN ×2 (09:24→18:21)
[2016-10-13] MEDS: FLUoxetine HCL 20 MG CAP PO SCH (09:24)
[2016-10-13] MEDS: LORazepam 0.5 MG TAB PO PRN ×2 (09:24→18:20)
--- NOTE | 2016-10-13 11:48 | HHI.PYPN ---
Subjective Remarks Patient was seen and discussed with the staff physical therapist. Patient feels frustrated and angry at his were taking his money away and not allowing him to see his children. He could be reassured he was given option to talk to the patent prosecution attorney when he gets out and straighten that out. No behavior or management problem reported. He tends to isolate himself. He was encouraged to participate in all the therapeutic activity. No side effects were complained is compliant in taking medication. Continue with the same treatment. manager administrative services to assist Review of Systems Except as stated in HPI: all other systems reviewed are Neg Psychiatric: COMPLAINS OF: Anxiety, Mood changes, Depression Objective Alert: Yes [place]: Person, Place, Date, Situation Mood: Angry, Anxious, Depressed, Other (frustrated) Affect: Labile, Restricted Memory Intact: Comment (intact) Hallucinations: Other (occasionally hears voices and has nightmare) Delusions: No Delusion Type: Other (none) Suicidal: Ideation (denies active plan, but reports vague ideation related to family stressors) Homicidal: Ideation (denies) Insight/Judgement Improving Vitals/IOs Vital Signs Date Time Temp Pulse Resp B/P Pulse Ox O2 Delivery O2 Flow Rate FiO2 10/13/16 05:46 97.5 76 18 115/59 100 Assessment & Plan Problem List: (1) Major depression, recurrent, chronic ICD Code: F33.9 (2) Substance induced mood disorder ICD Code: F19.94 Assessment & Plan Estimated LOS: days Justification for Cont. Inpt. Monitoring of the medication and discussed decompensation to stabilize his mood Request HC Surrog/Guard Advoc?: No Jerson Lorenzo MD Oct 13, 2016 11:48
[2016-10-13 18:00] VITALS: BP 127/74; PULSE 119; RESP 18; TEMP 98.2; O2SAT 98
[2016-10-14 05:28] VITALS: BP 118/69; PULSE 73; RESP 16; TEMP 97.6
[2016-10-14] MEDS: FLUoxetine HCL 20 MG CAP PO SCH (09:15)
[2016-10-14] MEDS: QUEtiapine FUMARATE 200 MG TAB PO SCH ×4 (09:15→20:17)
[2016-10-14] MEDS: NICOTINE 21 MG/24 HR PATCH TD SCH (09:16)
--- NOTE | 2016-10-14 09:57 | HHI.PYPN ---
Subjective Remarks Patient was seen and discussed with the staff command and control officer. Patient reported that he has been still feeling angry upset anxious and worried about the future but better than before. No behavior or management problem reported. Denied any active suicidal ideation intentions or plan. He is going to check with some sober house living and plan on abstaining from any substance abuse and follow-up as an outpatient. He claimed that he is already retained an state attorney once he is discharged. Continue with the same treatment is compliant in taking medication. printing services coordinator to assist him Review of Systems Except as stated in HPI: all other systems reviewed are Neg Psychiatric: COMPLAINS OF: Anxiety, Mood changes, Depression Objective Alert: Yes [place]: Person, Place, Date, Situation Mood: Angry, Anxious, Depressed, Other (frustrated) Affect: Labile, Restricted Memory Intact: Comment (intact) Hallucinations: Other (occasionally hears voices and has nightmare) Delusions: No Delusion Type: Other (none) Suicidal: Ideation (denies active plan, but reports vague ideation related to family stressors) Homicidal: Ideation (denies) Insight/Judgement Fair to limited Vitals/IOs Vital Signs Date Time Temp Pulse Resp B/P Pulse Ox O2 Delivery O2 Flow Rate FiO2 10/14/16 05:28 97.6 73 16 118/69 10/13/16 18:00 98 Assessment & Plan Problem List: (1) Major depression, recurrent, chronic ICD Code: F33.9 (2) Substance induced mood disorder ICD Code: F19.94 Assessment & Plan Estimated LOS: days Justification for Cont. Inpt. Monitoring of the medication and risks of decompensation Request HC Surrog/Guard Advoc?: No Jerson Lorenzo MD Oct 14, 2016 09:56
[2016-10-14] MEDS: LORazepam 0.5 MG TAB PO PRN ×2 (10:46→20:17)
[2016-10-14 18:00] VITALS: BP 123/73; PULSE 97; RESP 18; TEMP 98.3; O2SAT 99
[2016-10-14] MEDS: hydrOXYzine PAMOATE 25 MG CAP PO PRN (18:01)
[2016-10-15 06:12] VITALS: BP 112/61; PULSE 75; RESP 18; TEMP 97.7
[2016-10-15] MEDS: QUEtiapine FUMARATE 200 MG TAB PO SCH ×4 (08:54→20:20)
[2016-10-15] MEDS: FLUoxetine HCL 20 MG CAP PO SCH (08:55)
[2016-10-15] MEDS: NICOTINE 21 MG/24 HR PATCH TD SCH (08:56)
[2016-10-15] MEDS: LORazepam 0.5 MG TAB PO PRN (08:59)
--- NOTE | 2016-10-15 10:58 | HHI.PYPN ---
Subjective Remarks Patient was seen and discussed with the cruise staff member. Patient still has been feeling depressed frustrated and angry. He could be reassured. He claimed that he has been looking into some sober house living and they are going to come and evaluate him or the weekend. He feels hopeful about it. He wants to ask his mother for some financial help. Feels safe in the hospital. No behavior or management problem reported. No side effects were complained. Continue with the same treatment Review of Systems Except as stated in HPI: all other systems reviewed are Neg Psychiatric: COMPLAINS OF: Anxiety, Mood changes, Depression Objective Alert: Yes [place]: Person, Place, Date, Situation Mood: Angry, Anxious, Depressed, Other (frustrated) Affect: Labile, Restricted Memory Intact: Comment (intact) Hallucinations: Other (occasionally hears voices and has nightmare) Delusions: No Delusion Type: Other (none) Suicidal: Ideation (feels safe in the hospital and denied any suicidal ideation or plan) Homicidal: Ideation (denies) Insight/Judgement Fair Vitals/IOs Vital Signs Date Time Temp Pulse Resp B/P Pulse Ox O2 Delivery O2 Flow Rate FiO2 10/15/16 06:12 97.7 75 18 112/61 10/14/16 18:00 99 Intake and Output 10/14/16 10/14/16 10/15/16 08:00 16:00 00:00 Intake Total 480 ml Balance 480 ml Assessment & Plan Problem List: (1) Major depression, recurrent, chronic ICD Code: F33.9 (2) Substance induced mood disorder ICD Code: F19.94 Assessment & Plan Estimated LOS: days Justification for Cont. Inpt. Monitoring other medication to stabilize his mood Request HC Surrog/Guard Advoc?: No Jerson Lorenzo MD Oct 15, 2016 10:58
[2016-10-15] MEDS: hydrOXYzine PAMOATE 25 MG CAP PO PRN ×2 (12:36→20:20)
[2016-10-15 17:32] VITALS: BP 118/83; PULSE 116; RESP 18; TEMP 98.7; O2SAT 97
[2016-10-16 05:46] VITALS: BP 101/53; PULSE 66; RESP 18; TEMP 97.9; O2SAT 98
[2016-10-16] MEDS: QUEtiapine FUMARATE 200 MG TAB PO SCH ×4 (08:26→21:31)
[2016-10-16] MEDS: FLUoxetine HCL 20 MG CAP PO SCH (08:26)
[2016-10-16] MEDS: NICOTINE 21 MG/24 HR PATCH TD SCH (08:28)
[2016-10-16] MEDS: hydrOXYzine PAMOATE 25 MG CAP PO PRN ×2 (09:40→21:31)
--- NOTE | 2016-10-16 15:04 | HHI.PYPN ---
Subjective Remarks Patient was seen and case discussed with nursing. Patient is pleasant and cooperative with exam. He identifies various stressors leading to his suicidal ideation. Main stressors his cheating on him for the past 6 months. Patient admits to marijuana use and alcohol use before admission. Continues to have intermittent auditory hallucinations were talking about the person that she is cheating with. Mood is "better." Patient denies suicidal ideations intent or plan. Compliant with medications Objective Alert: Yes [place]: Person, Place, Date, Situation Mood: Angry, Anxious, Depressed, Other (frustrated) Affect: Labile, Restricted Memory Intact: Comment (intact) Hallucinations: Auditory (voices concerning his cheating) Delusions: No Delusion Type: Other (none) Suicidal: Ideation (feels safe in the hospital and denied any suicidal ideation or plan) Homicidal: Ideation (denies) Insight/Judgement Poor Vitals/IOs Vital Signs Date Time Temp Pulse Resp B/P Pulse Ox O2 Delivery O2 Flow Rate FiO2 10/16/16 05:46 97.9 66 18 101/53 98 Assessment & Plan Problem List: (1) Major depression, recurrent, chronic ICD Code: F33.9 (2) Substance induced mood disorder ICD Code: F19.94 Assessment & Plan Continue current treatment plan Justification for Cont. Inpt. Patient will decompensate in a less restrictive setting Request HC Surrog/Guard Advoc?: No Tomás Darden DO Oct 16, 2016 15:04
[2016-10-16 18:41] VITALS: BP 135/72; PULSE 124; RESP 18; TEMP 99.6; O2SAT 100
[2016-10-17 04:37] VITALS: BP 108/58; PULSE 73; RESP 18; TEMP 96.8; O2SAT 99
[2016-10-17] MEDS: FLUoxetine HCL 20 MG CAP PO SCH (08:17)
[2016-10-17] MEDS: NICOTINE 21 MG/24 HR PATCH TD SCH (08:17)
[2016-10-17] MEDS: QUEtiapine FUMARATE 200 MG TAB PO SCH ×4 (08:17→21:41)
--- NOTE | 2016-10-17 11:39 | HHI.PYPN ---
Subjective Remarks Patient was seen and case discussed with nursing. Patient describes his mood as "on and off." Chief complaint today is auditory hallucinations that are especially persistent at night. Sleep is poor with frequent awakenings. Patient is asking about further antipsychotic medications. Patient says the voices are calling his name and talking about his who is cheating. His compliant with medications. Denies suicidal ideations intent or plan Objective Alert: Yes [place]: Person, Place, Date, Situation Mood: Angry, Anxious, Depressed, Other (frustrated) Affect: Labile, Restricted Memory Intact: Comment (intact) Hallucinations: Auditory (voices concerning his cheating) Delusions: No Delusion Type: Other (none) Suicidal: Ideation (feels safe in the hospital and denied any suicidal ideation or plan) Homicidal: Ideation (denies) Insight/Judgement Poor Vitals/IOs Vital Signs Date Time Temp Pulse Resp B/P Pulse Ox O2 Delivery O2 Flow Rate FiO2 10/17/16 04:37 96.8 73 18 108/58 99 Assessment & Plan Problem List: (1) Major depression, recurrent, chronic ICD Code: F33.9 (2) Substance induced mood disorder ICD Code: F19.94 Assessment & Plan We will change the schedule of dosing of Seroquel. We'll add Remeron for sleep Justification for Cont. Inpt. Patient will decompensate in a less restrictive setting Request HC Surrog/Guard Advoc?: Tomás Flanagan DO Oct 17, 2016 11:39
[2016-10-17] MEDS: hydrOXYzine PAMOATE 25 MG CAP PO PRN ×2 (12:25→16:04)
[2016-10-17 19:02] VITALS: BP 126/67; PULSE 97; RESP 18; TEMP 98.2; O2SAT 98
[2016-10-17] MEDS ORDERED: MIRTAZAPINE 15 MG TAB PO SCH (21:00)
[2016-10-18 05:14] VITALS: BP 121/74; PULSE 79; RESP 16; TEMP 98.9; O2SAT 98
[2016-10-18] MEDS: NICOTINE 21 MG/24 HR PATCH TD SCH (09:00)
[2016-10-18] MEDS: FLUoxetine HCL 20 MG CAP PO SCH (09:00)
[2016-10-18] MEDS: QUEtiapine FUMARATE 200 MG TAB PO SCH ×2 (09:01→20:04)
--- NOTE | 2016-10-18 15:37 | HHI.PYPN ---
Subjective Remarks Patient seen in his room with nurse Osmel and medical student Fern, talked briefly while patient's past history and reason for hospitalization, patient complains of intermittent auditory hallucinations for a number of years now becoming more intense while doing the harm himself. He feels that the Seroquel daily dose is not helping him, he feels that the Remeron at at bedtime is making him dizzy. He does not like that either. He states that he did well on oral Haldol on the past to relieve the voices. He acknowledges past history of multiple drug abuse also. Including alcohol and heroin. He states he would take the suicide pill if her helped the voices go away. For now we will discontinue the daily schedule Seroquel only continue the at bedtime Seroquel. Will add Haldol 5 mg twice a day at 8 AM and 4 PM we'll also discontinue the Remeron Review of Systems Except as stated in HPI: all other systems reviewed are Neg Objective Alert: Yes [place]: Person, Place, Date, Situation Mood: Angry, Anxious, Depressed, Other (frustrated) Affect: Labile, Restricted Memory Intact: Comment (intact) Hallucinations: Auditory (voices concerning his cheating) Delusions: No Delusion Type: Other (none) Suicidal: Ideation (feels safe in the hospital and denied any suicidal ideation or plan) Homicidal: Ideation (denies) Insight/Judgement Very poor Vitals/IOs Vital Signs Date Time Temp Pulse Resp B/P Pulse Ox O2 Delivery O2 Flow Rate FiO2 10/18/16 05:14 98.9 79 16 121/74 98 Assessment & Plan Problem List: (1) Major depression, recurrent, chronic ICD Code: F33.9 (2) Substance induced mood disorder ICD Code: F19.94 Assessment & Plan Estimated LOS: days patient continue psychotic depressed and suicidal, some medication adjustments above Justification for Cont. Inpt. At this time patient would significantly decompensate if placed in a lower level of care Discharge Planning To be determined Request HC Surrog/Guard Advoc?: Eugene Ram MD Oct 18, 2016 15:37
--- NOTE | 2016-10-18 15:52 | PD.PN.STU ---
Subjective Remarks 26 year old patient seen in his room with Dr. Oropeza and Nurse Osmel. He was initially laying down upon entering the room but sat upright after a few minutes. He states the Remeron gave him bad side effects last night such as vomiting and lack of sleep. He does not want to take it again. When asked specifically, he reports that if he could take a guaranteed suicide pill and end his life, then he would. He states that he is still experiencing voices but cannot describe what they say. He reports Haldol helping him in the past but he stopped taking it because he could not afford it. He handed a hand-written note to Nurse Osmel today, with it stating: "I can't escape the voices, even in my dreams they control me. I'm trying to cope but I can feel him taking over. I just want them to go the f*ck away and leave me alone. I feel like I'm suffocating. Every time someone asks me what they are saying its like the voices take over and won't let me speak. I wish they would just stop. I wish he would leave me the f*ck alone. It's like it won' t stop until I do what they are wanting me to do. He won't let me speak what he is saying. I want it to stop. Please make him leave me alone. Sh*ts f*ckin me up today....I keep hearing him. Everywhere I go. I try and surround myself with others so he is drained somewhat out but he gets so f*ckin loud. I feel like he' s just jay to take me over one day and I'll be gone....Please make it go the f* ck away it makes so many bad thoughts..dreams filled with blood of my own...dreams of self mutilation and who he is and what I've become. I am my Demon the the world of conspiracy. These voices played like a casset backwards in my head when will they f*ckin stop..??? F*ck! I'm losing my f*cking mind!!!" Objective Vitals Vital Signs Date Time Temp Pulse Resp B/P Pulse Ox O2 Delivery O2 Flow Rate FiO2 10/18/16 05:14 98.9 79 16 121/74 98 10/17/16 19:02 98.2 97 18 126/67 98 Objective Remarks Alert: Yes [place]: Person, Place, Date, Situation Mood: Tired, Depressed, Other (frustrated) Affect: Restricted Memory Intact: Comment (intact) Hallucinations: Auditory (content unknown) Delusions: No Delusion Type: Other (none) Suicidal: Ideation (yes) Homicidal: Ideation (denies) Insight/Judgement: Poor A/P Assessment and Plan Problem list: Major depression, recurrent, chronic. Estimated LOS: To be determined by medical team, legal entities, and patient progress Justification: At this time patient would significantly decompensate if placed in a lower level of care. Discharge Planning To be determined Fern Beth M3 Oct 18, 2016 15:52 Fern Beth M3 Oct 18, 2016 15:52
[2016-10-18] MEDS: HALOPERIDOL 5 MG TAB PO SCH (16:00)
[2016-10-18 18:44] VITALS: BP 136/64; PULSE 105; RESP 18; TEMP 99.2
[2016-10-19] MEDS: HALOPERIDOL 5 MG TAB PO SCH ×2 (08:00→16:00)
[2016-10-19] MEDS: hydrOXYzine PAMOATE 25 MG CAP PO PRN ×2 (08:43→20:21)
[2016-10-19] MEDS: NICOTINE 21 MG/24 HR PATCH TD SCH (08:44)
[2016-10-19] MEDS: FLUoxetine HCL 20 MG CAP PO SCH (08:44)
--- NOTE | 2016-10-19 13:29 | HHI.PYPN ---
Subjective Remarks Patient seen in his room with nurse 1, chart review, patient is compliant with medications. Patient seen in bed with covers to his chin laying calmly there however when I came in a pull his arm out from the covers of it appeared to be somewhat tremulous. Patient now is denying suicidality.. He states the voices are intermittent now and then decreasing, he feels medication is helping. He states he has talked with his mother who lives in [place] she is going to have him come and stay with her. He has had follow-up the past Andrade Cotto with nurse practitioner Segun Jones Patient is improving. We'll consider discharge tomorrow to his mother follow-up with Andrade Cotto act Review of Systems Except as stated in HPI: all other systems reviewed are Neg Objective Alert: Yes [place]: Person, Place, Date, Situation Mood: Angry, Anxious, Depressed, Other (frustrated) Affect: Labile, Restricted Memory Intact: Comment (intact) Hallucinations: Auditory (voices concerning his cheating) Delusions: No Delusion Type: Other (none) Suicidal: Ideation (denies) Homicidal: Ideation (denies) Insight/Judgement Poor Vitals/IOs Vital Signs Date Time Temp Pulse Resp B/P Pulse Ox O2 Delivery O2 Flow Rate FiO2 10/18/16 18:44 99.2 105 18 136/64 10/18/16 05:14 98 Assessment & Plan Problem List: (1) Major depression, recurrent, chronic ICD Code: F33.9 (2) Substance induced mood disorder ICD Code: F19.94 Assessment & Plan Estimated LOS: days patient now denies suicidality has been compliant with medications as also decrease of the auditory hallucinations. We'll consider discharge tomorrow Justification for Cont. Inpt. At this time patient decompensate if placed a lower level of care Discharge Planning To be determined Request HC Surrog/Guard Advoc?: No Eugene Oropeza MD Oct 19, 2016 13:29
[2016-10-19] MEDS: QUEtiapine FUMARATE 200 MG TAB PO SCH (20:21)
[2016-10-20 06:22] VITALS: BP 102/52; PULSE 90; RESP 18; TEMP 97.5; O2SAT 98
[2016-10-20] MEDS: HALOPERIDOL 5 MG TAB PO SCH (08:00)
[2016-10-20] MEDS ORDERED: QUET1TAB9 PO (08:59)
[2016-10-20] MEDS ORDERED: FLUO20CA4 PO (08:59)
[2016-10-20] MEDS ORDERED: HALO5TAB PO (08:59)
[2016-10-20] MEDS: hydrOXYzine PAMOATE 25 MG CAP PO PRN (09:04)
[2016-10-20] MEDS: FLUoxetine HCL 20 MG CAP PO SCH (09:04)
[2016-10-20] MEDS: NICOTINE 21 MG/24 HR PATCH TD SCH (09:05)
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
== END 2016-10-20 14:15 | disposition home or self-care (01) | DRG 885 ==
LOC: NEPC 01:25 → NEDA 10-05 11:11 → H260 10-05 12:40
PROVIDERS: ADMIT Psychiatry & Neurology Psychiatry; ATTEND Psychiatry & Neurology Psychiatry
DX: F33.3 Major depressive disorder, recurrent, severe with psychotic symptoms (principal); G40.909 Epilepsy, unspecified, not intractable, without status epilepticus; I10 Essential (primary) hypertension; T45.0X2A Poisoning by antiallergic and antiemetic drugs, intentional self-harm, initial encounter; F41.9 Anxiety disorder, unspecified; F12.90 Cannabis use, unspecified, uncomplicated; T48.4X2A Poisoning by expectorants, intentional self-harm, initial encounter; R10.9 Unspecified abdominal pain; R40.0 Somnolence; R11.2 Nausea with vomiting, unspecified; B19.20 Unspecified viral hepatitis C without hepatic coma; J45.909 Unspecified asthma, uncomplicated; F60.7 Dependent personality disorder; F10.10 Alcohol abuse, uncomplicated; F19.94 Other psychoactive substance use, unspecified with psychoactive substance-induced mood disorder; F17.210 Nicotine dependence, cigarettes, uncomplicated; Y90.0 Blood alcohol level of less than 20 mg/100 ml; Z63.5 Disruption of family by separation and divorce; Z59.0 Homelessness; Z62.810 Personal history of physical and sexual abuse in childhood; Z81.1 Family history of alcohol abuse and dependence; Z81.8 Family history of other mental and behavioral disorders; Z88.0 Allergy status to penicillin; Z88.1 Allergy status to other antibiotic agents; Z88.5 Allergy status to narcotic agent
CPT/HCPCS: 80048; 80053; 80061; 80307; 80320; 80329; 81001; 83036; 85025; 93005; 96360; G0480; J7030; Q0177

== ENCOUNTER 2017-03-31 23:25 | Emergency (ER) | payer BC ==
[~2017-03-31] VITALS: Ht 198.1 cm; Wt 72.0 kg
[~2017-03-31 23:25] MED LIST changes: -ACET5SOL5 PO; -ALBU8I INH; -BENZ100 PO; +FLUO20CA4 PO; +HALO5TAB PO; +PROZ20CA11 PO; +QUET1TAB9 PO; +SERO200T PO; -ZITH250T PO; -ZOFR4TAB3 SL
[2017-03-31 23:28] VITALS: BP 145/81; PULSE 122; RESP 16; TEMP 97.6; O2SAT 99
--- NOTE | 2017-04-01 00:09 | PD ---
HPI Chief Complaint: Injury Time Seen by Provider: 00:05 Travel History International Travel<30 days: No Contact w/Intl Traveler<30days: No Traveled to known affect area: No History of Present Illness HPI Patient comes in for evaluation at the advice of his PCP after he awoke and injured himself. Patient states he's been having difficulty sleeping and tried taking melatonin tonight when he awoke having a vivid nightmare causing him to punch the wall with his right hand causing pain to his right hand that is aching throbbing like in nature. Patient took ibuprofen with minimal relief of symptoms. Pain is worse with certain movement. Patient also complaining of right-sided facial pain and headache that began after he got up was walking in the dark bleeding his face on something causing epistaxis the headache. Patient denies anything making this better or worse. Denies any change in vision, neck pain, chest pain, breath, loss consciousness, difficulty, shortness of breath, fevers, or numbness tingling anywhere. Describes facial pain as a pressure-like in nature and radiates throughout the right side of his face. PFSH Past Medical History Hx Anticoagulant Therapy: No ADHD: Yes Asthma: Yes (Patient states last attack in November of 2014) Bipolar Disorder: Yes Anxiety: Yes Depression: Yes Heart Rhythm Problems: No High Cholesterol: No Chemotherapy: No Chest Pain: No Congestive Heart Failure: No COPD: No Cerebrovascular Accident: No Diminished Hearing: No Endocrine: No Gastrointestinal Disorders: Yes (ULCERS, COLITIS) Genitourinary: Yes Hepatitis: Yes (C) Hypertension: Yes Immune Disorder: No Implanted Vascular Access Dvce: No Kidney Stones: Yes (Passed stones at age 20) Musculoskeletal: Yes Neurologic: Yes Psychiatric: Yes Reproductive: Yes (per pt-told at age 20 he was infertile d/t Meth use but has child ) Respiratory: Yes (SPORTS INDUCED ASTHMA) Immunizations Current: Yes Migraines: Yes Sleep Apnea: No Ulcer: Yes (UPPER AND LOWER GI BLEEDS ) Past Surgical History Abdominal Surgery: Yes (GI study for ulcers) Cardiac Surgery: No Ear Surgery: No Endocrine Surgery: No Eye Surgery: No Genitourinary Surgery: No Gynecologic Surgery: No Hysterectomy: No Oral Surgery: Yes ([place] Tooth pulled in 2011) Thoracic Surgery: No Other Surgery: Yes Social History Alcohol Use: No Tobacco Use: Yes (1PPD) Substance Use: Yes (MARIJUANA, hx of RX DRUGS) Allergies-Medications (Allergen,Severity, Reaction): Coded Allergies: Geodon (Verified Allergy, Severe, Anaphylaxis, 03/31/17) Penicillin (Verified Allergy, Severe, Anaphylaxis, 03/31/17) Codeine (Verified Allergy, Intermediate, ITCHING, 03/31/17) Ultram (Verified Allergy, Intermediate, GI UPSET, 03/31/17) Heparin (Unverified Allergy, Mild, 03/31/17) Compazine (Verified Allergy, Unknown, rash, 03/31/17) Levaquin (Verified Allergy, Unknown, 03/31/17) Reported Meds & Prescriptions Reported Meds & Active Scripts Active Ibuprofen 800 Mg Tab 800 Mg PO Q8H PRN Augmentin (Amoxicillin-Clavulanate) 875-125 Mg Tab 1 Tab PO BID 10 Days Review of Systems Except as stated in HPI: all other systems reviewed are Neg Physical Exam Narrative GENERAL: Well-developed, well nourished, in no acute distress, and non-ill appearing. SKIN: Focused skin assessment warm and dry. HEAD: Atraumatic. Normocephalic. EYES: Pupils equal and round. EOMI. No scleral icterus. No injection or drainage. ENT: No nasal bleeding or discharge. Mucous membranes pink and moist. No supple hematoma. No flattening of the cheeks. Patient reports since palpation over right nares and zygomatic process. No crepitus. NECK: Trachea midline. Supple. No nuclear rigidity. CARDIOVASCULAR: Radial pulses 2+, intact, and equal bilaterally. Capillary refill less than 2 seconds. RESPIRATORY: No accessory muscle use. No respiratory distress. MUSCULOSKELETAL: No obvious deformities. No clubbing. No cyanosis. No edema. Slowed range of motion of right hand secondary to pain. Wrist: FROM and equal BL with passive flexion, extension, and pronation/supination. Capillary refill less than 2 seconds distal to injury and equal BL. FROM distal to injury and equal BL. Strength distal to injury equal BL. NV intact distal to injury. Flexion and extension of thumb equal BL. Equal strength and movement with abduction/adductions of BL fingers. It Systems Administrator strength equal BL. No tenderness to the anatomical snuffbox. Patient reports to palpation over fifth metacarpal right hand. NEUROLOGICAL: Awake and alert. No obvious cranial nerve deficits. Motor grossly within normal limits. Normal speech. PSYCHIATRIC: Appropriate mood and affect; insight and judgment normal. Data Data Last Documented VS Vital Signs Date Time Temp Pulse Resp B/P Pulse Ox O2 Delivery O2 Flow Rate FiO2 03/31/17 23:28 97.6 122 16 145/81 99 Room Air Orders Ice/Cold Pack (04/01/17 00:04) Hand, Complete ([id number]) (04/01/17 ) Ct Facial Bones W/O Iv Cont (04/01/17 ) Ct Brain W/O Iv Contrast(Rout) (04/01/17 ) Splint Or Brace Apply/Monitor (04/01/17 01:08) MDM Medical Decision Making Medical Screen Exam Complete: Yes Emergency Medical Condition: Yes Interpretation(s) X-ray of the hand read by the radiologist shows: No fracture identified. CT head read by the radiologist shows: No acute intracranial findings. CT facial bones read by the radiologist shows: Age-indeterminate nasal bone fractures. Differential Diagnosis Fracture, sprain, contusion, intracranial hemorrhage, posttraumatic headache, other Narrative Course The patient suffered a nasal fracture. There is no nasal (clear or bloody) discharge or bleeding and no septal hematoma. There are no visual problems or significant bruising under eyes or midface. There is no evidence to suggest entrapment and there is no facial nerve palsy. There is no flattening of the cheek or altered sensation underneath the eye. The facial bones appear stable and nonmobile. The airway is intact and the patient is able to tolerate fluids. Pain is well controlled and there is no evidence or clinical orbital wall fracture, especially entrapment. The face appears stable and no evidence of facial fracture otherwise. Plan of care and management was discussed with the patient with follow up with ENT next week when swelling reduced for reevaluation and possible realignment (if necessary after swelling reduced). The patient agreed with plan of care. The patient appears to have suffered a contusion of the hand. There is no clinical evidence to suspect bony injury by exam. Radiographic examination revealed no fracture seen at this time. The patient has full range of motion on active and passive motions. There is no significant edema. There is no proximal or distal joint effusion. The distal extremity appears neurovascularly intact, without evidence of neurovascular injury nor compartment syndrome. Tendon exam also was intact. The patient was discharged on pain medication instructions and given warnings for vascular compromise. The patient is to follow up with their regular physician. The patient agrees with plan. Patient in no obvious distress upon re-evaluation. All pertinent Radiology result(s) discussed with patient. Patient was asked if they wanted to speak to my attending, which the patient did not wish to do at this time. Any questions/ concerns in reference to patient diagnosis/condition discussed and clarified prior to patient's discharge. Reinforced sheer importance of close follow up with patient's primary physician or primary care clinic and ENT. Instructed patient to return to ED immediately, if symptoms return/worsen. Pt showed understanding of above instructions. Further instructions and recommendations were detailed in discharge paperwork. Pt ambulated without difficulty out of ED at discharge. Diagnosis Primary Impression: Nasal bone fracture Qualified Code: S02.2XXA - Closed fracture of nasal bone, initial encounter Additional Impressions: Facial contusion Qualified Code: S00.83XA - Facial contusion, initial encounter Contusion of right hand, initial encounter Referrals: Ear / Nose / Throat Specialist Primary Care Physician Patient Instructions: Contusion in Adults (DC), Facial Contusion (ED), General Instructions, Nasal Fracture (ED) Departure Forms: Work Release Enter return to work date: Apr 03, 2017 Additional Instructions: Follow-up with your primary care physician and ENT in 3-5 days for reevaluation. Take all medication as prescribed. Apply ice affected area, described as needed for pain. Wear Rob wrap as needed for comfort. Sleep at an angle of approximately 30 or higher decrease pain and swelling. Do not blow your nose hard. Sneeze with mouth open. Do not drink through a straw. Avoid heavy lifting. Return to the emergency department if symptoms get worse. Med/Other Pt SpecificInfo: Prescription(s) given Scripts Ibuprofen 800 Mg Icu820 Mg PO Q8H PRN (Pain/Inflammation) #21 TAB Ref 0 Prov:Rosalinda Feliz MD 04/01/17 Amoxicillin-Clavulanate (Augmentin)875-125 Mg Tab1 Tab PO BID 10 Days Ref 0 Prov:Rosalinda Feliz MD 04/01/17 Disposition: 01 DISCHARGE HOME Condition: Stable Ray Dukes Apr 01, 2017 00:09
--- NOTE | 2017-04-01 00:38 | RADRPT ---
EXAM DATE/TIME: 04/01/2017 00:15 [facility] COMPARISON: No previous studies available for comparison. INDICATIONS : Right hand pain. MEDICAL HISTORY : None. SURGICAL HISTORY : None. ENCOUNTER: Initial ACUITY: 1 day PAIN SCORE: 8/10 LOCATION: Right upper extremity hand FINDINGS: 3 views of right hand. Bone alignment within normal limits. No evidence of fracture. No evidence of joint narrowing. CONCLUSION: No evidence of fracture. Ulises Stewart MD on April 01, 2017 at 0:35 Board Certified Radiologist. This report was verified electronically.
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
[2017-04-01] MEDS ORDERED: AUGM875T3 PO (01:10)
[2017-04-01] MEDS ORDERED: IBUP800T23 PO (01:10)
== END 2017-04-01 01:37 | disposition home or self-care (01) ==
LOC: NEPK 23:25
DX: S02.2XXA Fracture of nasal bones, initial encounter for closed fracture (principal); S00.83XA Contusion of other part of head, initial encounter; S60.221A Contusion of right hand, initial encounter; I10 Essential (primary) hypertension; J45.909 Unspecified asthma, uncomplicated; F31.9 Bipolar disorder, unspecified; F41.9 Anxiety disorder, unspecified; B19.20 Unspecified viral hepatitis C without hepatic coma; W22.01XA Walked into wall, initial encounter
CPT/HCPCS: 70450; 70486; 73130; 99285

== ENCOUNTER 2017-04-17 17:52 | Inpatient (IN) | payer BC ==
[~2017-04-17] VITALS: Ht 198.1 cm; Wt 66.1 kg
[~2017-04-17 17:52] MED LIST changes: +AUGM875T3 PO; -FLUO20CA4 PO; -HALO5TAB PO; +IBUP800T23 PO; -PROZ20CA11 PO; -QUET1TAB9 PO; -SERO200T PO
[2017-04-17 17:54] VITALS: BP 133/76; PULSE 120; RESP 20; TEMP 98.6; O2SAT 99
--- NOTE | 2017-04-17 18:29 | PD ---
HPI Chief Complaint: Psychiatric Symptoms Time Seen by Provider: 18:29 Travel History International Travel<30 days: No Contact w/Intl Traveler<30days: No Traveled to known affect area: No History of Present Illness HPI 27-year-old male with history of migraine headache, depression, substance abuse , presents to emergency department voluntarily for psychiatric evaluation. Patient states he has been off of his medications since being [facility] from [facility] and has become more more depressed. He is having suicidal thoughts. No active plan. States that he needs his medication "figured out." He states he is tired of getting up early and going [employer] with no results. He has no other symptoms reported this time. PFSH Past Medical History Hx Anticoagulant Therapy: No ADHD: Yes Asthma: Yes (Patient states last attack in November of 2014) Bipolar Disorder: Yes Anxiety: Yes Depression: Yes Heart Rhythm Problems: No High Cholesterol: No Chemotherapy: No Chest Pain: No Congestive Heart Failure: No COPD: No Cerebrovascular Accident: No Diminished Hearing: No Endocrine: No Gastrointestinal Disorders: Yes (ULCERS, COLITIS) Genitourinary: Yes Hepatitis: Yes (C) Hypertension: Yes Immune Disorder: No Implanted Vascular Access Dvce: No Kidney Stones: Yes (Passed stones at age 20) Musculoskeletal: Yes Neurologic: Yes Psychiatric: Yes Reproductive: Yes (per pt-told at age 20 he was infertile d/t Meth use but has child ) Respiratory: Yes (SPORTS INDUCED ASTHMA) Immunizations Current: Yes Migraines: Yes Sleep Apnea: No Ulcer: Yes (UPPER AND LOWER GI BLEEDS ) Tetanus Vaccination: < 5 Years Past Surgical History Abdominal Surgery: Yes (GI study for ulcers) Cardiac Surgery: No Ear Surgery: No Endocrine Surgery: No Eye Surgery: No Genitourinary Surgery: No Gynecologic Surgery: No Hysterectomy: No Oral Surgery: Yes ([place] Tooth pulled in 2011) Thoracic Surgery: No Other Surgery: Yes Social History Alcohol Use: Yes Tobacco Use: Yes (1PPD) Substance Use: Yes (MARIJUANA, hx of RX DRUGS) Allergies-Medications (Allergen,Severity, Reaction): Coded Allergies: Geodon (Verified Allergy, Severe, Anaphylaxis, 04/17/17) Penicillin (Verified Allergy, Severe, Anaphylaxis, 04/17/17) Codeine (Verified Allergy, Intermediate, ITCHING, 04/17/17) Ultram (Verified Allergy, Intermediate, GI UPSET, 04/17/17) Heparin (Verified Allergy, Mild, 04/17/17) Compazine (Verified Allergy, Unknown, rash, 04/17/17) Levaquin (Verified Allergy, Unknown, 04/17/17) Reported Meds & Prescriptions Reported Meds & Active Scripts Active Ibuprofen 800 Mg Tab 800 Mg PO Q8H PRN Reported Prozac (Fluoxetine HCl) 20 Mg Cap 60 Mg PO DAILY Seroquel (Quetiapine Fumarate) 200 Mg Tab 200 Mg PO QID Review of Systems Except as stated in HPI: all other systems reviewed are Neg Physical Exam Narrative GENERAL: Well-nourished male patient, with depressed affect, in no acute distress SKIN: Focused skin assessment warm/dry. HEAD: Atraumatic. Normocephalic. EYES: Pupils equal and round. No scleral icterus. No injection or drainage. ENT: No nasal bleeding or discharge. Mucous membranes pink and moist. NECK: Trachea midline. No JVD. CARDIOVASCULAR: Regular rate and rhythm. No murmur appreciated. RESPIRATORY: No accessory muscle use. Clear to auscultation. Breath sounds equal bilaterally. GASTROINTESTINAL: Abdomen soft, non-tender, nondistended. Hepatic and splenic margins not palpable. MUSCULOSKELETAL: No obvious deformities. No clubbing. No cyanosis. No edema. NEUROLOGICAL: Awake and alert. No obvious cranial nerve deficits. Motor grossly within normal limits. Normal speech. Data Data Last Documented VS Vital Signs Date Time Temp Pulse Resp B/P Pulse Ox O2 Delivery O2 Flow Rate FiO2 04/17/17 20:30 98.5 80 18 113/62 97 Room Air Orders Complete Blood Count With Diff (04/17/17 18:23) Basic Metabolic Panel (Bmp) (04/17/17 18:23) Psych Screen (04/17/17 18:23) Drug Screen, Random Urine (04/17/17 18:23) Alcohol (Ethanol) (04/17/17 18:23) Quetiapine (Seroquel) (04/17/17 21:30) Labs Laboratory Tests Test 04/17/17 18:35 White Blood Count 9.9 TH/MM3 Red Blood Count 5.31 MIL/MM3 Hemoglobin 17.1 GM/DL Hematocrit 48.5 % Mean Corpuscular Volume 91.3 FL Mean Corpuscular Hemoglobin 32.1 PG Mean Corpuscular Hemoglobin 35.2 % Concent Red Cell Distribution Width 12.8 % Platelet Count 254 TH/MM3 Mean Platelet Volume 9.4 FL Neutrophils (%) (Auto) 54.9 % Lymphocytes (%) (Auto) 33.8 % Monocytes (%) (Auto) 8.9 % Eosinophils (%) (Auto) 2.0 % Basophils (%) (Auto) 0.4 % Neutrophils # (Auto) 5.4 TH/MM3 Lymphocytes # (Auto) 3.3 TH/MM3 Monocytes # (Auto) 0.9 TH/MM3 Eosinophils # (Auto) 0.2 TH/MM3 Basophils # (Auto) 0.0 TH/MM3 CBC Comment DIFF FINAL Differential Comment Sodium Level 139 MEQ/L Potassium Level 3.8 MEQ/L Chloride Level 103 MEQ/L Carbon Dioxide Level 29.3 MEQ/L Anion Gap 7 MEQ/L Blood Urea Nitrogen 8 MG/DL Creatinine 0.81 MG/DL Estimat Glomerular Filtration 116 ML/MIN Rate Random Glucose 90 MG/DL Calcium Level 9.0 MG/DL Urine Opiates Screen NEG Urine Barbiturates Screen NEG Urine Amphetamines Screen NEG Urine Benzodiazepines Screen NEG Urine Cocaine Screen NEG Urine Cannabinoids Screen POS Ethyl Alcohol Level LESS THAN 3 MG/DL MDM Medical Decision Making Medical Screen Exam Complete: Yes Emergency Medical Condition: Yes Medical Record Reviewed: Yes Differential Diagnosis Mood disorder versus personality disorder versus adjustment reaction disorder versus substance abuse Narrative Course 27-year-old male presents to emergency department voluntarily for psychiatric evaluation. Patient appears depressed. He is discussing suicidal thoughts with no active plan. Lab work is without acute concern. Toxicology is positive for cannabinoids. EtOH is less than 3. Patient is medically cleared to undergo psychiatric screening for further evaluation and disposition. Mental health screening discussed with the patient. Psychiatric screen ordered. Diagnosis Primary Impression: Major depression, recurrent, chronic Condition: Stable Xi Rodriguez Apr 17, 2017 18:29
[2017-04-17 18:58] LABS: AUTOMATED NEUTROPHIL # 5.4 TH/MM3 (1.8-7.7); BASOPHIL % 0.4 % (0.0-2.0); EOSINOPHIL # 0.2 TH/MM3 (0-0.4); HEMATOCRIT 48.5 % (39.0-51.0); HEMO FLAGS DIFF FINAL; LYMPH % 33.8 % (9.0-44.0); LYMPHOCYTE # 3.3 TH/MM3 (1.0-4.8); MEAN CELL VOLUME 91.3 FL (80.0-100.0); MEAN CORPUSCULAR HEMOGLOBIN 32.1 PG (27.0-34.0); MEAN CORPUSCULAR HGB CONC 35.2 % (32.0-36.0); MONO % 8.9 % (0.0-8.0); NEUT % 54.9 % (16.0-70.0); PLATELET COUNT 254 TH/MM3 (150-450); RED BLOOD COUNT 5.31 MIL/MM3 (4.50-5.90); RED CELL DISTRIBUTION WIDTH 12.8 % (11.6-17.2); WHITE BLOOD COUNT 9.9 TH/MM3 (4.0-11.0)
[2017-04-17 19:17] VITALS: BP 102/59; PULSE 89; RESP 16; O2SAT 98
[2017-04-17 19:17] LABS: ANION GAP 7 MEQ/L (5-15); BICARBONATE 29.3 MEQ/L (21.0-32.0); BLOOD UREA NITROGEN 8 MG/DL (7-18); CHLORIDE 103 MEQ/L (98-107); GLOMERULAR FILTRATION RATE 116 ML/MIN (>89); POTASSIUM 3.8 MEQ/L (3.5-5.1); SODIUM (NA) 139 MEQ/L (136-145)
[2017-04-17] MEDS ORDERED: PROZ20CA11 PO (19:18)
[2017-04-17] MEDS ORDERED: PROZ40CA PO (19:18)
[2017-04-17] MEDS ORDERED: SERO200T PO (19:18)
[2017-04-17 19:25] LABS: ALCOHOL LESS THAN 3 MG/DL (0-5)
[2017-04-17 20:30] VITALS: BP 113/62; PULSE 80; RESP 18; TEMP 98.5; O2SAT 97
[2017-04-17] MEDS ORDERED: QUEtiapine FUMARATE 100 MG TAB PO ONE (21:30)
[2017-04-18 02:05] VITALS: BP 94/55; PULSE 67; RESP 18; TEMP 97.1; O2SAT 98
[2017-04-18 06:25] VITALS: BP 93/58; PULSE 65; RESP 18; TEMP 97.5; O2SAT 98
[2017-04-18 10:34] VITALS: BP 100/55; PULSE 87; RESP 18; O2SAT 98
[2017-04-18] MEDS: QUEtiapine FUMARATE 200 MG TAB PO SCH ×3 (11:09→23:04)
[2017-04-18] MEDS ORDERED: ALUMINUM/MAGNESIUM/SIMETH 30 ML CUP PO PRN (11:30)
[2017-04-18] MEDS ORDERED: ACETAMINOPHEN 325 MG TAB PO PRN (11:30)
[2017-04-18] MEDS ORDERED: LORazepam 2 MG/ML VIAL IM PRN ×2 (11:30)
[2017-04-18] MEDS ORDERED: MAGNESIUM HYDROXIDE SUSP 30 ML CUP PO PRN (11:30)
[2017-04-18] MEDS ORDERED: LORazepam 0.5 MG TAB PO PRN (11:30)
--- NOTE | 2017-04-18 11:56 | HHI.HP ---
Provisional Diagnosis Admission Date [place]. Adjustment disorder with depressed mood Certification of Person's Competence To Provide Express and Informed Consent I have personally examined Nabeel Gaytan , a person being served at [facility] on, Apr 18, 2017 11:31. Express and informed consent means consent voluntarily given in writing, by a competent person, after sufficient explanation and disclosure of the subject matter involved to enable the person to make a knowing and willful decision without any element of force, fraud, deceit, duress, or other form of constraint or coercion. This person is 18 years of age or older, is not now known to be incompetent to consent to treatment with a guardian advocate, and does not have a health care surrogate or proxy currently making medical treatment decisions. I have found this person to be one of the following: [x] Competent to provide express and informed consent, as defined above, for voluntary admission to this facility and is competent to provide express and informed consent for treatment. He/she has the consistent capacity to make well reasoned, willful, and knowing decisions concerning his or her medical or mental health treatment. The person fully and consistently understands the purpose of the admission for examination/placement and is fully capable of personally exercising all rights assured [place] Incompetent to provide express and informed consent to voluntary admission, and this is incompetent to provide express and informed consent to treatment. The person must be transferred to involuntary status and a petition for a guardian advocate filed with the Circuit Court. [] Refusing to provide express and informed consent to voluntary admission but is competent to provide express and informed consent for treatment. The person must be discharged or transferred to involuntary status. Form shall be completed within 24 hours of a person's arrival at the receiving facility and filed in the clinical record of each person: 1. Admitted on a voluntary basis 2. Permitted to provide express and informed consent to his/her own treatment 3. Allowed to transfer from involuntary to voluntary status 4. Prior to permitting a person to consent to his or her own treatment after having been previously found incompetent to consent to treatment. History of Present Illness Capacity: Has Capacity HPI 27-year-old male recently released from retirement, presents voluntarily for multiple symptoms of depression with suicidality. Patient has been attempting to obtain help through [facility] and been turned away multiple times. He is here due to his increasing depression for the last 2 months, hoping to be stabilized on medication. His symptoms include depressed mood, anxiety, anhedonia, suicidal ideation with plan (cut himself), irritability, diminished self-esteem , feelings of hopelessness and helplessness, insomnia, diminished energy, and social withdrawal. The patient is asking for Seroquel at this time, 200 mg 4 times a day to quell his anxiety. Current stressors include being recently incarcerated and getting into an argument with his significant other. He also has a 4-year-old child. He has a history of polysubstance abuse and is hepatitis C positive. Review of Systems Except as stated in HPI: all other systems reviewed are Neg Past Psych History Psychological trauma history Denied Violence risk - others (6 mos) Moderate Violence risk - self (6 mos) High. The patient insists that he will do something to harm himself if he is not admitted. Substance Abuse History Drugs/Alcohol past 12 months History of polysubstance abuse in the last 12 months. Upon his last admission he was using flocca and experiencing psychosis. This was approximately 7 months ago. Past Family Social History Coded Allergies: Geodon (Verified Allergy, Severe, Anaphylaxis, 04/17/17) Penicillin (Verified Allergy, Severe, Anaphylaxis, 04/17/17) Codeine (Verified Allergy, Intermediate, ITCHING, 04/17/17) Ultram (Verified Allergy, Intermediate, GI UPSET, 04/17/17) Heparin (Verified Allergy, Mild, 04/17/17) Compazine (Verified Allergy, Unknown, rash, 04/17/17) Levaquin (Verified Allergy, Unknown, 04/17/17) Active Scripts Ibuprofen 800 Mg [id number] Mg PO Q8H PRN (Pain/Inflammation) #21 TAB Ref 0 Prov:Rosalinda Feliz MD 04/01/17 Reported Medications Fluoxetine (Prozac)20 Mg Cap60 Mg PO DAILY #30 CAP Ref 0 04/17/17 Quetiapine (Seroquel)200 Mg [id number] Mg PO QID #60 TAB Ref 0 04/17/17 Discontinued Reported Medications Fluoxetine (Prozac)40 Mg Cap40 Mg PO DAILY #30 CAP Ref 0 04/17/17 Discontinued Scripts Amoxicillin-Clavulanate (Augmentin)875-125 Mg Tab1 Tab PO BID 10 Days Ref 0 Prov:Rosalinda Feliz MD 04/01/17 Current Medications Medications (Trade) Dose Ordered Sig/Cleopatra Route Start Time Stop Time Status Last Admin (SEROquel) 200 mg Q6HR PO 04/18/17 12:00 04/18/17 11:09 Family History Positive for mood and anxiety disorders. Social History Currently unemployed. Reportedly has the support of his significant other. History of polysubstance abuse including hallucinogenic drugs. Multiple medical problems including hepatitis C. Patient's Strengths (min. 2) Verbal and resilience. Physical Exam GENERAL: SKIN: Warm and dry. HEAD: Normocephalic. EYES: No scleral icterus. No injection or drainage. NECK: Supple, trachea midline. No JVD or lymphadenopathy. CARDIOVASCULAR: Regular rate and rhythm without murmurs, gallops, or rubs. RESPIRATORY: Breath sounds equal bilaterally. No accessory muscle use. GASTROINTESTINAL: Abdomen soft, non-tender, nondistended. MUSCULOSKELETAL: No cyanosis, or edema. BACK: Nontender without obvious deformity. No CVA tenderness. Vital Signs Vital Signs Date Time Temp Pulse Resp B/P Pulse Ox O2 Delivery O2 Flow Rate FiO2 04/18/17 10:34 87 18 100/55 98 Room Air 04/18/17 06:25 97.5 Mental Status Examination Speech: Unremarkable Orientation: x3 Memory: Unremarkable Thought Process: Organized, Goal Directed Thought Content: Unremarkable Hallucination Type: None Attention and Concentration: Good Suicidal Ideation: Yes Previous Suicide Attempts: Yes Homicidal Ideation: No Previous Homicide Attempts: No Insight: Fair Judgment: Unrealistic Affect: Irritable, Anxious, Sad Affect if Inappropriate: Blunt Mood: Sad, Anxious, Irritable Motor Activity: Normal gait Assessment & Plan Problem List: (1) Adjustment disorder with depressed mood ICD Code: F43.21 Assessment & Plan Estimated LOS: days 27-year-old male with multiple psychosocial stressors and multiple physical health problems, presenting to the emergency department voluntarily after being turned away from [facility] on multiple occasions. Patient is markedly depressed with multiple symptoms of depression for the last 2 months, complaining of suicidal ideation with plan. He was recently incarcerated and has a fragile support system. He is felt to be at high risk for self-harm and has been off his psychotropic medicines for 2 months. He is requesting stabilization. This physician has given admission orders and is obtaining a CBC and metabolic profile to ensure no organic process, metabolic process or infectious process is causing or contributing to his depression. Additionally, thyroid stimulating hormone will be checked to ascertain if a thyroid problem is causing or contributing to his depression. We will ask our physical medicine hospitalist to evaluate the patient due to his hepatitis C and the possibility of this causing or creating more depression. Vitamin B-12 and vitamin D levels will also be checked as they may be deficient and contributing to his depression. Toxicology screen is also being ordered due to his past history. EKG is being ordered as the patient wants to take 800 mg of Seroquel per day and we want to ensure the safety of his cardiac conduction system. This physician spoke with the patient's nurse regarding his recent behavior. We will also involve case management to gather further information from family and friends and assist with disposition planning. Randall Lucas MD Apr 18, 2017 11:56
[2017-04-18 12:40] VITALS: BP 100/55; PULSE 87; RESP 18; O2SAT 98
[2017-04-18 14:24] VITALS: BP 100/70; PULSE 109; RESP 18; TEMP 96.8
[2017-04-18] MEDS: LORazepam 1 MG TAB PO PRN ×2 (14:30→21:32)
--- NOTE | 2017-04-18 17:03 | PD.CONS ---
HPI Service [facility] Consult Requested By Dr. Lucas Reason for Consult Management of medical condition. History of hepatitis C and multiple medical problems with inconsistent treatment Primary Care Physician Bennett Sidhu MD Diagnoses: History of Present Illness Written by Shirley Wheeler, acting as scribe for Dr. Le on 04/18/17 at 1650. This is a 27-year-old male patient currently in inpatient psychiatric center with been consulted for management of medical conditions history of hepatitis C and multiple medical problems with inconsistent treatment. Patient reports he has a history of bipolar, anxiety/depression, hepatitis C, asthma, hypertension , epilepsy, brain mass colitis and peptic ulcer disease. Patient reports he has been treated for these conditions previously at this hospital. Review of medical records see prior diagnoses of bipolar with C. difficile colitis. Patient also reports he fractured his nose approximately one week ago maxillofacial CT reviewed 04/01/2017 reveals closed nasal fracture of indeterminate age. Patient reports that since this time he has been having nausea vomiting and pounding headaches not relieved by ibuprofen. Patient reports he's been self-medicating with marijuana, Xanax and alcohol. Patient also reports he was recently incarcerated and since he's been senior care he's been unemployed and has had a hard time following up with his PCP or other specialist due to lack of funding. Patient denies shortness of breath chest pain at this time. Review of Systems Except as stated in HPI: all other systems reviewed are Neg Past Family Social History Allergies: Coded Allergies: penicillin G (Unverified Allergy, Severe, Anaphylaxis, 04/19/17) ziprasidone (Unverified Allergy, Severe, Anaphylaxis, 04/19/17) codeine (Unverified Allergy, Intermediate, ITCHING, 04/19/17) tramadol (Unverified Allergy, Intermediate, GI UPSET, 04/19/17) enoxaparin (Unverified Allergy, Mild, 04/19/17) heparin (porcine) (Unverified Allergy, Mild, 04/19/17) levofloxacin (Unverified Allergy, Unknown, 04/19/17) prochlorperazine (Unverified Allergy, Unknown, rash, 04/19/17) Past Medical History Patient reports he has a history of bipolar, anxiety/depression, hepatitis C, asthma, hypertension, epilepsy, brain mass colitis and peptic ulcer disease Past Surgical History [place] tooth extraction, EGD and colonoscopy Reported Medications Ibuprofen 800 Mg Tab 800 Mg PO Q8H PRN Prozac (Fluoxetine HCl) 20 Mg Cap 60 Mg PO DAILY Seroquel (Quetiapine Fumarate) 200 Mg Tab 200 Mg PO QID Active Ordered Medications Current Medications Medications (Trade) Dose Ordered Sig/Cleopatra Route Start Time Stop Time Status Last Admin (SEROquel) 200 mg Q6HR PO 04/18/17 12:00 04/18/17 11:09 (Ativan) 1 mg Q6H PRN PO 04/18/17 11:30 04/18/17 14:30 (Ativan Inj) 1 mg Q6H PRN IM 04/18/17 11:30 (Tylenol) 650 mg Q4H PRN PO 04/18/17 11:30 (Milk Of Magnesia Liq) 30 ml DAILY PRN PO 04/18/17 11:30 (Mag-Al Plus Susp Liq) 30 ml Q6H PRN PO 04/18/17 11:30 Family History Reports seizures in grandfather brother and cousin Social History Patient currently living with his mother. Patient is and has 2 children EtOH use patient reports he drinks as much as he can afford mostly liquor Tobacco use between 2 and 3 packs per day Illicit drug use patient smokes marijuana and also abuses prescription drugs denies other illicit drug use Physical Exam Vital Signs Vital Signs Date Time Temp Pulse Resp B/P Pulse Ox O2 Delivery O2 Flow Rate FiO2 04/18/17 14:24 96.8 109 18 100/70 04/18/17 12:40 87 18 100/55 98 Room Air 04/18/17 10:34 87 18 100/55 98 Room Air 04/18/17 06:25 97.5 65 18 93/58 98 04/18/17 02:05 97.1 67 18 94/55 98 Room Air 04/17/17 20:30 98.5 80 18 113/62 97 Room Air 04/17/17 19:17 89 16 102/59 98 Room Air 04/17/17 17:54 98.6 120 20 133/76 99 Room Air Physical Exam GENERAL: This is a thin, well-developed patient, in no apparent distress. SKIN: No rashes, ecchymoses or lesions. Cool and dry. Multiple tattoos noted HEAD: Atraumatic. Normocephalic. No temporal or scalp tenderness. EYES: Extraocular motions intact. No scleral icterus. No injection or drainage. ENT: Nose without bleeding, purulent drainage or septal hematoma. Throat without erythema, tonsillar hypertrophy or exudate. Uvula midline. Airway patent. NECK: Trachea midline. No JVD or lymphadenopathy. Supple, nontender, no meningeal signs. CARDIOVASCULAR: Regular rate and rhythm without murmurs, gallops, or rubs. RESPIRATORY: Clear to auscultation. Breath sounds equal bilaterally. No wheezes , rales, or rhonchi. GASTROINTESTINAL: Abdomen soft, non-tender, nondistended.No guarding. MUSCULOSKELETAL: Extremities without clubbing, cyanosis, or edema. No joint tenderness, effusion, or edema noted. No calf tenderness. Negative Homans sign bilaterally. NEUROLOGICAL: Awake and alert. No focal deficits appreciated. Motor and sensory grossly within normal limits. Five out of 5 muscle strength in all muscle groups. Normal speech. Laboratory Laboratory Tests Test 04/17/17 18:35 White Blood Count 9.9 Red Blood Count 5.31 Hemoglobin 17.1 Hematocrit 48.5 Mean Corpuscular Volume 91.3 Mean Corpuscular Hemoglobin 32.1 Mean Corpuscular Hemoglobin 35.2 Concent Red Cell Distribution Width 12.8 Platelet Count 254 Mean Platelet Volume 9.4 Neutrophils (%) (Auto) 54.9 Lymphocytes (%) (Auto) 33.8 Monocytes (%) (Auto) 8.9 Eosinophils (%) (Auto) 2.0 Basophils (%) (Auto) 0.4 Neutrophils # (Auto) 5.4 Lymphocytes # (Auto) 3.3 Monocytes # (Auto) 0.9 Eosinophils # (Auto) 0.2 Basophils # (Auto) 0.0 CBC Comment DIFF FINAL Differential Comment Sodium Level 139 Potassium Level 3.8 Chloride Level 103 Carbon Dioxide Level 29.3 Anion Gap 7 Blood Urea Nitrogen 8 Creatinine 0.81 Estimat Glomerular Filtration 116 Rate Random Glucose 90 Calcium Level 9.0 Urine Opiates Screen NEG Urine Barbiturates Screen NEG Urine Amphetamines Screen NEG Urine Benzodiazepines Screen NEG Urine Cocaine Screen NEG Urine Cannabinoids Screen POS Ethyl Alcohol Level LESS THAN 3 Result Diagram: 04/17/17 6735 04/17/17 6795 Assessment and Plan Assessment and Plan This is a 27-year-old male patient currently in inpatient psychiatric center with been consulted for management of medical conditions history of hepatitis C and multiple medical problems with inconsistent treatment. Patient reports he has a history of bipolar, anxiety/depression, hepatitis C, asthma, hypertension , epilepsy, brain mass, colitis and peptic ulcer disease. Patient reports he has been treated for these conditions previously at this hospital. Review of medical records see prior diagnoses of bipolar and C. difficile colitis. Patient also reports he fractured his nose approximately one week ago- maxillofacial CT reviewed 04/01/2017 reveals closed nasal fracture of indeterminate age. Patient reports that since this time he has been having nausea, vomiting and pounding headaches not relieved by ibuprofen. Patient reports he's been self-medicating with marijuana, Xanax and alcohol. Patient also reports he was recently incarcerated and since he's been senior care he's been unemployed and has had a hard time following up with his PCP or other specialist due to lack of funding. Bipolar anxiety/depression Management per primary psychiatric team Hepatitis C reported Check hepatitis profile, also check HIV antibody is Liver ultrasound ordered and pending CMP ordered for a.m. Asthma last exacerbation 2014 Rescue inhaler if needed Reported hypertension Patient has been hypotensive since admission continue to monitor trend Reported epilepsy no prior documentation on medical chart reveal Seizure precautions, EEG ordered Reported brain mass MRI October 27, 2014 reports benign arachnoid cyst in the right sylvian fissure- unremarkable MRI Recent head CT April 01, 2017 shows no acute intracranial findings Nasal fracture maxillofacial CT April 01, 2017 reveals age indeterminate nasal bone fractures Patient will likely need outpatient PCP/ENT follow-up Reported colitis and peptic ulcer disease Hemoglobin 17.1 recheck CBC in a.m. No report of black tarry stools, bright red blood per rectum, hematemesis or coffee-ground emesis Nausea/vomiting Zofran as needed for nausea/vomiting Continue to monitor for active vomiting none reported per nursing staff thus far DVT prophylaxis patient is ambulatory and low risk This note was transcribed by malvin Wheeler. I, Dr. Dong Griffiths personally performed the history, physical exam, and medical decision making; and confirmed the accuracy of the information in the transcribed note. Authenticated by Dr. Dong Griffiths on 04/18/17 at 1703. Shirley Wheeler Apr 18, 2017 17:03 Dong Gallego MD Apr 28, 2017 21:24
[2017-04-18 18:13] VITALS: BP 110/66; PULSE 87; O2SAT 100
[2017-04-19 05:17] VITALS: BP 135/61; PULSE 83; RESP 16; TEMP 97.9; O2SAT 97
[2017-04-19] MEDS: QUEtiapine FUMARATE 200 MG TAB PO SCH ×4 (05:20→22:55)
[2017-04-19] MEDS: LORazepam 1 MG TAB PO PRN ×3 (05:21→21:31)
[2017-04-19 07:40] LABS: AUTOMATED NEUTROPHIL # 4.9 TH/MM3 (1.8-7.7); BASOPHIL # 0.1 TH/MM3 (0-0.2); BASOPHIL % 0.8 % (0.0-2.0); EOSINOPHIL # 0.2 TH/MM3 (0-0.4); EOSINOPHIL % 2.6 % (0.0-4.0); HEMATOCRIT 46.1 % (39.0-51.0); HEMO FLAGS DIFF FINAL; LYMPH % 35.9 % (9.0-44.0); LYMPHOCYTE # 3.4 TH/MM3 (1.0-4.8); MEAN CELL VOLUME 90.4 FL (80.0-100.0); MEAN CORPUSCULAR HEMOGLOBIN 31.5 PG (27.0-34.0); MEAN CORPUSCULAR HGB CONC 34.9 % (32.0-36.0); MONO % 9.1 % (0.0-8.0); NEUT % 51.6 % (16.0-70.0); PLATELET COUNT 221 TH/MM3 (150-450); RED CELL DISTRIBUTION WIDTH 13.1 % (11.6-17.2); WHITE BLOOD COUNT 9.5 TH/MM3 (4.0-11.0)
[2017-04-19 08:03] LABS: ANION GAP 6 MEQ/L (5-15); AST (GOT) 67 U/L (15-37); BICARBONATE 25.8 MEQ/L (21.0-32.0); BLOOD UREA NITROGEN 10 MG/DL (7-18); CHLORIDE 106 MEQ/L (98-107); GLOMERULAR FILTRATION RATE 116 ML/MIN (>89); POTASSIUM 3.9 MEQ/L (3.5-5.1); SODIUM (NA) 138 MEQ/L (136-145)
[2017-04-19 08:04] LABS: ALT (GPT) 159 U/L (12-78)
[2017-04-19 08:29] LABS: ALKALINE PHOSPHATASE 78 U/L (45-117); HDL CHOLESTEROL 31.7 MG/DL (40.0-60.0); LDL CHOLESTEROL 23 MG/DL (0-99); TOTAL BILIRUBIN ADULT 0.8 MG/DL (0.2-1.0)
[2017-04-19] MEDS ORDERED: ALBUTEROL SULFATE 90 MCG/ACT HFA 8 GM INHALER INH PRN (09:15)
--- NOTE | 2017-04-19 09:17 | RADRPT ---
EXAM DATE/TIME: 04/19/2017 08:13 [place] COMPARISON: CT ABDOMEN & PELVIS W/O CONTRAST, October 31, 2015, 2:45. INDICATIONS : Hepatitis C. MEDICAL HISTORY : Hepatitis C. Polysubstance use. Migraine. Asthma. Ulcers. Colitis. SURGICAL HISTORY : None. ENCOUNTER: Initial ACUITY: 1 day PAIN SCORE: 0/10 LOCATION: Abdomen. MEASUREMENTS: LIVER: 15.2 cm length COMMON DUCT: 3 mm RIGHT KIDNEY: 10.8 x 4.1 x 4.3 cm SPLEEN: 10.9 cm length FINDINGS: LIVER: Liver is minimally enlarged and demonstrates mild diffuse fatty infiltration. No focal mass is noted. No biliary ductal dilatation is noted. There is hepatopetal flow within the portal vein. COMMON DUCT: No intraluminal mass or stone visualized. GALLBLADDER: Contains no stones, demonstrates no wall thickening or pericholecystic fluid. PANCREAS: The visualized portions are within normal limits. RIGHT KIDNEY: No hydronephrosis, stone or mass. SPLEEN: No focal lesion. CONCLUSION: Mild diffuse fatty infiltration of a minimally enlarged liver. Jan Vigil MD on April 19, 2017 at 9:14 Board Certified Radiologist. This report was verified electronically.
[2017-04-19] MEDS ORDERED: ALBUTEROL SULFATE 90 MCG/ACT HFA 18 GM INHALER INH PRN (09:30)
[2017-04-19 10:35] LABS: HEMOGLOBIN A1a 0.8 %; HEMOGLOBIN A1b 1.5 %; HEMOGLOBIN Ao 86.5 %; HEMOGLOBIN LA1C 1.8 %; HEMOGLOBIN P3 3.4 %
--- NOTE | 2017-04-19 13:48 | EKG ---
Date Performed: 04/19/2017 Time Performed: 09:15:17 PTAGE: 27 years EKG: Sinus rhythm LEFT ATRIAL ENLARGEMENT BORDERLINE RIGHT AXIS DEVIATION ABNORMAL ECG Compared to prior tracing no si gnificant change PREVIOUS TRACING : 10/04/2016 01.48 DOCTOR: Travis Miller Interpretating Date/Time 04/19/2017 13:47:10
[2017-04-19] MEDS: FLUoxetine HCL 20 MG CAP PO SCH (14:45)
[2017-04-19 15:14] VITALS: BP 116/73; PULSE 106; RESP 18; TEMP 98.4; O2SAT 99
[2017-04-19] MEDS: hydrOXYzine HCL 25 MG TAB PO PRN (16:31)
--- NOTE | 2017-04-19 17:22 | HHI.PYPN ---
Subjective Remarks Patient is a follow, chart review. After discussion she staff patient had EKG done earlier this morning. patient found sitting in hospital bed and able to engage in interview but noted to be superficially cooperative. Patient states they have been off his medication for 2 and half months and having stopped the medications after recently being released from senior living. He stated that he had been feeling more depressed with suicidal ideations. Patient states that he had been drinking prior to coming to the ER and reports having had blackouts a lot at the drinking since age of 17. He also reports using marijuana daily about 4 g per day since age of 12. Patient reports he has had previous detox in the past inattentive previous rehabilitation program last year for about 4 months. Patient states that prior to coming to the hospital he had an argument with his as he had been drinking. Patient reports feeling depressed with occasional suicidal ideations last time was last night. Patient reports having had auditory hallucinations about a year ago but none recently. Patient noted to be upset that check writer salesperson was asking many of the similar question hip and acidosis arrival to the hospital. Patient states that previously he has been on Seroquel an fluoxetine which have been helpful in the past and would like to resume these medications. Patient requests that his when necessary lorazepam be increased but was explained that this was recommended due to possibility of dependence and addiction. Collateral contact: Jesusita Gaytan () [phone]; [phone] Review of Systems Except as stated in HPI: all other systems reviewed are Neg Objective Alert: Yes [place]: Person, Place, Date Mood: Other ("depressed") Affect: Other (irritable) Memory Intact: Immediate, Recent, Remote Hallucinations: Other (denies) Delusions: No Delusion Type: Other (denies) Suicidal: Ideation (denies) Homicidal: Ideation (denies) Insight/Judgment Limited insight, impulse control and judgment Labs Test 04/19/17 07:13 White Blood Count 9.5 TH/MM3 Red Blood Count 5.10 MIL/MM3 Hemoglobin 16.1 GM/DL Hematocrit 46.1 % Mean Corpuscular Volume 90.4 FL Mean Corpuscular Hemoglobin 31.5 PG Mean Corpuscular Hemoglobin 34.9 % Concent Red Cell Distribution Width 13.1 % Platelet Count 221 TH/MM3 Mean Platelet Volume 9.3 FL Neutrophils (%) (Auto) 51.6 % Lymphocytes (%) (Auto) 35.9 % Monocytes (%) (Auto) 9.1 % Eosinophils (%) (Auto) 2.6 % Basophils (%) (Auto) 0.8 % Neutrophils # (Auto) 4.9 TH/MM3 Lymphocytes # (Auto) 3.4 TH/MM3 Monocytes # (Auto) 0.9 TH/MM3 Eosinophils # (Auto) 0.2 TH/MM3 Basophils # (Auto) 0.1 TH/MM3 CBC Comment DIFF FINAL Differential Comment Sodium Level 138 MEQ/L Potassium Level 3.9 MEQ/L Chloride Level 106 MEQ/L Carbon Dioxide Level 25.8 MEQ/L Anion Gap 6 MEQ/L Blood Urea Nitrogen 10 MG/DL Creatinine 0.81 MG/DL Estimat Glomerular Filtration 116 ML/MIN Rate Random Glucose 89 MG/DL Hemoglobin A1c 5.1 % Calcium Level 8.9 MG/DL Total Bilirubin 0.8 MG/DL Aspartate Amino Transf 67 U/L (AST/SGOT) Alanine Aminotransferase 159 U/L (ALT/SGPT) Alkaline Phosphatase 78 U/L Total Protein 7.1 GM/DL Albumin 3.9 GM/DL Triglycerides Level 148 MG/DL Cholesterol Level 84 MG/DL LDL Cholesterol 23 MG/DL HDL Cholesterol 31.7 MG/DL Cholesterol/HDL Ratio 2.64 RATIO Vitamin B12 Level 1132 PG/ML 25-Hydroxy Vitamin D Total 45.6 ng/ML Thyroid Stimulating Hormone 1.320 uIU/ML 3rd Gen Hepatitis A IgM Antibody NEGATIVE Hepatitis B Surface Antigen NEGATIVE Hepatitis B Core IgM Antibody NEGATIVE Hepatitis C Antibody REACTIVE HIV (1&2) Antibody NEGATIVE Vitals/IOs Vital Signs Date Time Temp Pulse Resp B/P Pulse Ox O2 Delivery O2 Flow Rate FiO2 04/19/17 15:14 98.4 106 18 116/73 99 04/18/17 12:40 Room Air Assessment & Plan Problem List: (1) Adjustment disorder with depressed mood ICD Code: F43.21 Assessment & Plan Patient at this time continues to endorse depressive symptoms along with suicidal ideations. Patient will be restarted on quetiapine and fluoxetine. We 'll add hydroxyzine 25 mg every 8 hours will plan to decrease lorazepam availability as a when necessary replaced wit hydroxyzine when necessary due to risk for further a dependence and addiction to benzodiazepines due to patient's history of substance abuse. Supportive psychotherapy provided. Monitor for medication response and never drug reactions. Discharge planning in progress. Justification for Cont. Inpt. Patient at risk for decompensation if it lower level of care Discharge Planning In progress Michael Gabriel MD Apr 19, 2017 17:21
--- NOTE | 2017-04-19 17:53 | MG ---
cc: KIMBERLY VASQUEZ Lab No: [id number] Date: 04/19/17 Age: Sex: M Race: Psych eval, headaches, hepatitis C, kidney stone. Seroquel Ativan A 10 Hz 60 microvolt symmetric posterior rhythm is noted. Hyperventilation is performed without significant change in the background. Some beta rhythms are seen consistent with benzodiazepine use. A vertex sharp wave is noted as he appears to briefly fall asleep. Photic stimulation is performed without significant posterior driving. IMPRESSION A generally unremarkable EEG. There are some prominent beta rhythms consistent with benzodiazepine use, but no focal abnormalities are noted. No seizure activity was seen. MD HALI Live/ /5:25 PM /5:42 PM
[2017-04-20] MEDS: hydrOXYzine HCL 25 MG TAB PO PRN (00:42)
[2017-04-20] MEDS: QUEtiapine FUMARATE 200 MG TAB PO SCH ×4 (04:58→23:51)
[2017-04-20 05:07] VITALS: BP 110/75; PULSE 95; RESP 16; TEMP 97.8; O2SAT 99
[2017-04-20] MEDS: REMOVE OLD PATCH T-DERMAL SCH (09:00)
[2017-04-20] MEDS: NICOTINE 21 MG/24 HR PATCH T-DERMAL SCH (09:03)
[2017-04-20] MEDS: LORazepam 1 MG TAB PO PRN ×2 (09:03→23:54)
[2017-04-20] MEDS: FLUoxetine HCL 20 MG CAP PO SCH (09:03)
--- NOTE | 2017-04-20 11:58 | HHI.PR ---
Subjective Remarks Follow up: Hepatitis C, reported seizures and reported vomiting Patient seen with tech present. Patient upset reports he was lied to regarding possible DC. Patient thought he was being discharged today and reports he wants to go home with his and children. Patient reports he is at his baseline and offers no new/acute complaints Patient appears to be in no acute distress. Discussed with nursing and tech no seizure activity, no witnessed vomiting Objective Vitals Vital Signs Date Time Temp Pulse Resp B/P Pulse Ox O2 Delivery O2 Flow Rate FiO2 04/20/17 05:07 97.8 95 16 110/75 99 04/19/17 15:14 98.4 106 18 116/73 99 Result Diagram: 04/19/17 0713 04/19/17 0713 Imaging Last Impressions Liver Ultrasound 04/19/17 0000 Signed Impressions: Service Date/Time: Wednesday, April 19, 2017 08:13 - CONCLUSION: Mild diffuse fatty infiltration of a minimally enlarged liver. Jan Vigil MD Objective Remarks GENERAL: This is a thin, well-developed patient, in no apparent distress. SKIN: No rashes, ecchymoses or lesions. Cool and dry. Multiple tattoos noted HEAD: Atraumatic. Normocephalic. No temporal or scalp tenderness. EYES: Extraocular motions intact. No scleral icterus. No injection or drainage. ENT: Nose without bleeding, purulent drainage or septal hematoma. Throat without erythema, tonsillar hypertrophy or exudate. Uvula midline. Airway patent. NECK: Trachea midline. No JVD or lymphadenopathy. Supple, nontender, no meningeal signs. CARDIOVASCULAR: Regular rate and rhythm without murmurs, gallops, or rubs. RESPIRATORY: Clear to auscultation. Breath sounds equal bilaterally. No wheezes , rales, or rhonchi. GASTROINTESTINAL: Abdomen soft, non-tender, nondistended.No guarding. MUSCULOSKELETAL: Extremities without clubbing, cyanosis, or edema. No joint tenderness, effusion, or edema noted. No calf tenderness. Negative Homans sign bilaterally. NEUROLOGICAL: Awake and alert. No focal deficits appreciated. Motor and sensory grossly within normal limits. Five out of 5 muscle strength in all muscle groups. Normal speech. A/P Assessment and Plan This is a 27-year-old male patient currently in inpatient psychiatric center with been consulted for management of medical conditions history of hepatitis C and multiple medical problems with inconsistent treatment. Patient reports he has a history of bipolar, anxiety/depression, hepatitis C, asthma, hypertension , epilepsy, brain mass, colitis and peptic ulcer disease. Patient reports he has been treated for these conditions previously at this hospital. Review of medical records see prior diagnoses of bipolar and C. difficile colitis. Patient also reports he fractured his nose approximately one week ago- maxillofacial CT reviewed 04/01/2017 reveals closed nasal fracture of indeterminate age. Patient reports that since this time he has been having nausea, vomiting and pounding headaches not relieved by ibuprofen. Patient reports he's been self-medicating with marijuana, Xanax and alcohol. Patient also reports he was recently incarcerated and since he's been assisted he's been unemployed and has had a hard time following up with his PCP or other specialist due to lack of funding. Bipolar anxiety/depression Management per primary psychiatric team Hepatitis C- chronic HIV antibody negative Liver ultrasound reviewed and reveals: CMP reviewed consistent with chronic hepatitis C Asthma last exacerbation 2014 Rescue inhaler if needed Reported hypertension- stable without medications continue to monitor trend Reported epilepsy no prior documentation on medical chart reveal Seizure precautions, no seizure activity EEG reviewed and reveals unremarkable EEG, prominent beta rhythms consistent with benzodiazepine use, but no focal abnormalities are noted. No seizure activity was seen Reported brain mass MRI October 27, 2014 reports benign arachnoid cyst in the right sylvian fissure- unremarkable MRI Recent head CT April 01, 2017 shows no acute intracranial findings Nasal fracture maxillofacial CT April 01, 2017 reveals age indeterminate nasal bone fractures Patient will likely need outpatient PCP/ENT follow-up Reported colitis and peptic ulcer disease Hemoglobin 17.1 --> 16.1 No report of black tarry stools, bright red blood per rectum, hematemesis or coffee-ground emesis Nausea/vomiting- resolved Zofran as needed for nausea/vomiting Continue to monitor for active vomiting none reported per nursing staff thus far DVT prophylaxis patient is ambulatory and low risk Patient appears medically stable will need outpatient follow-up after discharge. Patient reports he often has difficulty with follow-up appointments due to finances. Have placed consult case management to assist patient in finding low-cost/free clinic for follow-up. We will sign off at this time if patient's condition changes or further assistance is needed please reconsult. Discussed with patient, nursing and Shirley Hernandez Apr 20, 2017 11:58
--- NOTE | 2017-04-20 13:37 | HHI.PYPN ---
Subjective Remarks Patient seen for follow, chart reviewed. After discussing with nursing staff patient noted to be confused at times intrusive last evening and requesting discharge. Patient was found sitting in hospital bed able to engage in interview, calm and cooperative initially but started becoming irritable toward end of interview. Patient states that he is missing his son and wants to go home to see him but also agrees to resume his medications and follow-up. He states that he recently spoke with his mother on the phone and noted to be upset. He states that his mother had told him that his for divorce him if he does not seek to help that he needed referring to rehabilitation from alcohol and marijuana use as well as engaging in outpatient treatment. Patient stated that he would like to be connected to rehabilitation program as an outpatient, follow-up at a clinic for continued treatment, and agrees to engage in parenting classes. When discussing discharge from the hospital patient was unclear whether he was able to cope with these definitive plan about how he would get home and the acuity L to go into the house as his is currently working. Patient prior to admission was staying with his mother and unclear whether he can return there. Patient reports feeling "okay" and denies suicidal ideations at this time. Denies HI, AVH or delusions. Review of Systems Except as stated in HPI: all other systems reviewed are Neg Objective Alert: Yes [place]: Person, Place, Date Mood: Other ("ok") Affect: Other (calm initially but then later became irritable) Memory Intact: Immediate, Recent, Remote Hallucinations: Other (denies) Delusions: No Delusion Type: Other (denies) Suicidal: Ideation (denies) Homicidal: Ideation (denies) Insight/Judgment Limited insight, limited impulse control and judgment. Vitals/IOs Vital Signs Date Time Temp Pulse Resp B/P Pulse Ox O2 Delivery O2 Flow Rate FiO2 04/20/17 05:07 97.8 95 16 110/75 99 04/18/17 12:40 Room Air Assessment & Plan Problem List: (1) Adjustment disorder with depressed mood ICD Code: F43.21 Assessment & Plan Patient continues to have labile mood with irritability and was visibly upset after having spoken with his mother over the phone. Patient recently restarted on medications, denies feeling depressed or having suicidal ideations. Patient at this time contemplating her reconnecting with services for rehabilitation and outpatient treatments along with engaging in parenting classes. Patient met with [facility] healthcare representative we will coordinate with team to have these services put in the place prior to discharge. As per collateral with to nursing staff, patient is not welcome back into the home at this time. Aunt with mother but will require confirmation from the mother of this. Patient to continue current treatment regimen, monitor medication response and adverse drug reactions. Supportive psychotherapy provided. Justification for Cont. Inpt. Patient returns for decompensation at a lower level of care Discharge Planning In progress Michael Gabriel MD Apr 20, 2017 13:37
[2017-04-20 18:06] VITALS: BP 105/52; PULSE 93; RESP 18; TEMP 99.1; O2SAT 96
[2017-04-21] MEDS: QUEtiapine FUMARATE 200 MG TAB PO SCH ×4 (05:42→23:04)
[2017-04-21 06:12] VITALS: BP 95/58; PULSE 92; RESP 16; TEMP 97.8; O2SAT 99
[2017-04-21] MEDS: NICOTINE 21 MG/24 HR PATCH T-DERMAL SCH (08:59)
[2017-04-21] MEDS: LORazepam 1 MG TAB PO PRN ×2 (08:59→19:30)
[2017-04-21] MEDS: FLUoxetine HCL 20 MG CAP PO SCH (08:59)
[2017-04-21] MEDS: REMOVE OLD PATCH T-DERMAL SCH (08:59)
[2017-04-21 18:08] VITALS: BP 99/62; PULSE 127; RESP 18; TEMP 98.6; O2SAT 97
--- NOTE | 2017-04-21 20:24 | HHI.PYPN ---
Subjective Remarks Patient seen for follow-up, chart review. Patient reports having slept okay, reports daily remembering many of the events that occurred yesterday which she reports has happened in the past. Patient stated he feels better with the current medication regimen mood today is "pretty good". He stated that he spoke to his over the phone recently that she had been very supportive up to now. He states that he plans to go back to home to live with his mother and continue outpatient treatment and follow-up upon discharge. She denies SI, HI, AVH or delusions. Review of Systems Except as stated in HPI: all other systems reviewed are Neg Objective Alert: Yes [place]: Person, Place, Date Mood: Other ("pretty good") Affect: Appropriate Memory Intact: Immediate, Recent, Remote Hallucinations: Other (denies) Delusions: No Delusion Type: Other (denies) Suicidal: Ideation (denies) Homicidal: Ideation (denies) Insight/Judgment Limited insight, impulse control and judgment Vitals/IOs Vital Signs Date Time Temp Pulse Resp B/P Pulse Ox O2 Delivery O2 Flow Rate FiO2 04/21/17 18:08 98.6 127 18 99/62 97 04/18/17 12:40 Room Air Assessment & Plan Problem List: (1) Adjustment disorder with depressed mood ICD Code: F43.21 Assessment & Plan Patient is time has shown improvement in mood, less labile today. Patient to continue current treatment regimen, continue to encourage for maintenance of personal hygiene and participation in group activities on the unit. Discharge planning in progress Justification for Cont. Inpt. Patient at risk for further decompensation if at lower level of care. Discharge Planning In progress Michael Gabriel MD Apr 21, 2017 20:24
[2017-04-22] MEDS: QUEtiapine FUMARATE 200 MG TAB PO SCH ×4 (05:26→23:35)
[2017-04-22 06:12] VITALS: BP 124/70; PULSE 75; RESP 18; TEMP 97.3; O2SAT 97
[2017-04-22] MEDS: REMOVE OLD PATCH T-DERMAL SCH (09:00)
[2017-04-22] MEDS: FLUoxetine HCL 20 MG CAP PO SCH (09:36)
[2017-04-22] MEDS: LORazepam 1 MG TAB PO PRN ×2 (09:36→18:12)
[2017-04-22] MEDS: NICOTINE 21 MG/24 HR PATCH T-DERMAL SCH (09:37)
[2017-04-22] MEDS: hydrOXYzine HCL 25 MG TAB PO PRN (12:55)
[2017-04-22] MEDS ORDERED: OLANZapine IM 10 MG VIAL IM ONE (15:15)
[2017-04-22 17:55] VITALS: BP 113/78; PULSE 115; RESP 17; TEMP 98.7; O2SAT 97
--- NOTE | 2017-04-22 18:12 | HHI.PYPN ---
Subjective Remarks Patient seen for follow, chart reviewed. Patient noted to be lying in hospital bed and upset patient states that he spoke with his and he was told he could not return back to live with her. Patient states that he is having racing thoughts and having auditory hallucinations and noted to be increasingly becoming upset and agitated. Patient was provided with olanzapine 5 mg IM to help with current symptoms. Review of Systems Except as stated in HPI: all other systems reviewed are Neg Objective Alert: Yes [place]: Person, Place, Date Mood: Agitated (slightly noted to be increasing), Anxious, Other (upset) Affect: Labile, Other Memory Intact: Immediate, Recent, Remote Hallucinations: Auditory, Other (denies) Delusions: No Delusion Type: Other (denies) Suicidal: Ideation (denies) Homicidal: Ideation (denies) Insight/Judgment Limited insight, poor impulse control, limited judgment Vitals/IOs Vital Signs Date Time Temp Pulse Resp B/P Pulse Ox O2 Delivery O2 Flow Rate FiO2 04/22/17 17:55 98.7 115 17 113/78 97 04/18/17 12:40 Room Air Assessment & Plan Problem List: (1) Adjustment disorder with depressed mood ICD Code: F43.21 Assessment & Plan Patient reporting tolerating medication well but due to "recent conversation over the phone with his patient noted to become increasingly upset and agitated and was requesting medication to help him calm down as he reports having auditory hallucinations at this time. Patient was provided with a B5 milligrams IM to address symptoms. Continue current treatment. Discharge planning in progress Justification for Cont. Inpt. Patient at risk for further decompensation if at lower level of care. Discharge Planning In progress Michael Gabriel MD Apr 22, 2017 18:12
[2017-04-23] MEDS: QUEtiapine FUMARATE 200 MG TAB PO SCH ×4 (05:36→23:05)
[2017-04-23 06:19] VITALS: BP 109/66; PULSE 99; RESP 18; TEMP 97.1; O2SAT 98
[2017-04-23] MEDS: NICOTINE 21 MG/24 HR PATCH T-DERMAL SCH (07:35)
[2017-04-23] MEDS: FLUoxetine HCL 20 MG CAP PO SCH (07:35)
[2017-04-23] MEDS: REMOVE OLD PATCH T-DERMAL SCH (07:36)
[2017-04-23] MEDS: LORazepam 1 MG TAB PO PRN ×2 (07:36→13:36)
[2017-04-23] MEDS ORDERED: OLANZapine IM 10 MG VIAL IM ONE (10:45)
[2017-04-23 12:01] VITALS: BP 137/68; PULSE 103; TEMP 98.2; O2SAT 97
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
[2017-04-23] MEDS: hydrOXYzine HCL 25 MG TAB PO PRN ×2 (18:15→20:31)
[2017-04-23 18:34] VITALS: BP 118/71; PULSE 110; RESP 18; TEMP 97.7; O2SAT 99
[2017-04-24] MEDS: QUEtiapine FUMARATE 200 MG TAB PO SCH ×4 (05:45→23:02)
[2017-04-24 06:12] VITALS: BP 124/73; PULSE 91; RESP 17; TEMP 97.9; O2SAT 98
[2017-04-24] MEDS: REMOVE OLD PATCH T-DERMAL SCH (09:00)
[2017-04-24] MEDS: hydrOXYzine HCL 25 MG TAB PO PRN ×2 (09:00→17:09)
[2017-04-24] MEDS: NICOTINE 21 MG/24 HR PATCH T-DERMAL SCH (09:00)
[2017-04-24] MEDS: FLUoxetine HCL 20 MG CAP PO SCH (09:00)
[2017-04-24] MEDS: LORazepam 1 MG TAB PO PRN ×2 (13:04→20:19)
[2017-04-24 17:00] VITALS: BP 138/82; PULSE 111; RESP 18; TEMP 97.1; O2SAT 100
--- NOTE | 2017-04-24 19:32 | HHI.PYPN ---
Subjective Remarks Patient was seen and case discussed with nursing. Patient is less sarcastic and rude today. He was very tearful this morning after receiving news that his was cheating on him from a friend. later called and confirmed infidelity telling him she wanted a divorce. Patient says he was distraught in the morning but is comes to terms with that is looking forward to his future. His friend has offered a place for him to stay. Affect is blunted. Mood is depressed. Patient denies suicidal or homicidal ideation intent or plan. His compliant with his medication behaving well on the unit. Today voices are nonspecific any cannot make them out Objective Alert: Yes [place]: Person, Place, Date Mood: Anxious, Depressed Affect: Tearful Memory Intact: Immediate, Recent, Remote Hallucinations: Auditory (cannot make them out, not command) Delusions: No Delusion Type: Other (no delusions or ideas of references elicited) Suicidal: Intent (denies), Plan (denies), Ideation (denies) Homicidal: Intent (denies), Plan (denies), Ideation (denies) Insight/Judgment Poor Vitals/IOs Vital Signs Date Time Temp Pulse Resp B/P (MAP) Pulse Ox O2 Delivery O2 Flow Rate FiO2 04/24/17 17:00 97.1 111 18 138/82 (100) 100 Assessment & Plan Problem List: (1) Adjustment disorder with depressed mood ICD Codes: F43.21 - Adjustment disorder with depressed mood Status: Acute Assessment & Plan Continue current treatment plan Justification for Cont. Inpt. Patient would decompensate in a less restrictive setting Tomás Darden DO Apr 24, 2017 19:32
[2017-04-25] MEDS: QUEtiapine FUMARATE 200 MG TAB PO SCH ×2 (05:28→07:57)
[2017-04-25 05:39] VITALS: BP 117/67; PULSE 93; RESP 18; TEMP 97.4; O2SAT 98
[2017-04-25] MEDS: FLUoxetine HCL 20 MG CAP PO SCH (07:55)
[2017-04-25] MEDS: NICOTINE 21 MG/24 HR PATCH T-DERMAL SCH ×2 (07:57→08:09)
[2017-04-25] MEDS: hydrOXYzine HCL 25 MG TAB PO PRN (08:02)
[2017-04-25] MEDS: REMOVE OLD PATCH T-DERMAL SCH (08:09)
[2017-04-25] MEDS ORDERED: QUET1TAB9 PO (11:15)
[2017-04-25] MEDS ORDERED: HYDR-3133 PO (11:15)
[2017-04-25] MEDS ORDERED: FLUO20CA12 PO (11:15)
--- NOTE | 2017-04-25 18:33 | HHI.DS ---
Psychiatry Discharge Summary Inpatient Psychiatric care?: Yes Advance Directive: No Reason Not Provided: declined Mental Health AdvanceDirective: No Health Care Proxy: No Admission Admission Date Apr 18, 2017 at 11:29 Admission Diagnosis: (1) Adjustment disorder with depressed mood ICD Code: F43.21 - Adjustment disorder with depressed mood Brief History 27-year-old male recently released from alf, presents voluntarily for multiple symptoms of depression with suicidality. Patient has been attempting to obtain help through [facility] and been turned away multiple times. He is here due to his increasing depression for the last 2 months, hoping to be stabilized on medication. His symptoms include depressed mood, anxiety, anhedonia, suicidal ideation with plan (cut himself), irritability, diminished self-esteem , feelings of hopelessness and helplessness, insomnia, diminished energy, and social withdrawal. The patient is asking for Seroquel at this time, 200 mg 4 times a day to quell his anxiety. Current stressors include being recently incarcerated and getting into an argument with his significant other. He also has a 4-year-old child. He has a history of polysubstance abuse and is hepatitis C positive. Tobacco Use In Past 30 Days: 5 or More Cigarettes/Day Alcohol Use: Never Hospital Course Patient is a 27-year-old male, recently released from alf, past psychiatric history of depression, anxiety, polysubstance use disorder, previous suicide attempts and slef injurious behavior who has been attempting to obtain help through [facility] and been turned away multiple times. He is here due to his increasing depression for the last 2 months, hoping to be stabilized on medication. Patient was restarted on quetiapine 200mg by mouth QID along with fluoxetine 20mg PO daily for mood stabilization and depression respectively. Patient began to have less episodes of agitation and irritability throughout admission. Patient responded well to treatment and noted to have a more stable mood, improved judgement and impulse control. Upon discharge patient agreed to comply with treatment outpatient follow up for continuity of care as well as engage in rehabiliation program. Patient dischaged back home. Results Blood Pressure 117 / 67 Vital Signs Date Time Temp Pulse Resp B/P (MAP) Pulse Ox O2 Delivery O2 Flow Rate FiO2 04/25/17 05:39 97.4 93 18 117/67 (84) 98 Laboratory Results Test 04/19/17 07:13 Cholesterol Level 84 MG/DL (120-200) HDL Cholesterol 31.7 MG/DL (40.0-60.0) Hemoglobin A1c 5.1 % (4.3-6.0) LDL Cholesterol 23 MG/DL (0-99) Triglycerides Level 148 MG/DL (42-150) Summary of Procedures none Imaging Last Impressions Liver Ultrasound 04/19/17 0000 Signed Impressions: Service Date/Time: Wednesday, April 19, 2017 08:13 - CONCLUSION: Mild diffuse fatty infiltration of a minimally enlarged liver. Jan Vigil MD Pending results at discharge: No Medications # of Antipsychotic meds at D/C: 1 Approp Antipsych med options 1 - Minimum of three failed multiple trials of monotherapy. 2 - Documented plan to taper to monotherapy due to previous use of multiple meds OR cross-taper in progress at D/C. 3 - Documentation of augmentation of Clozapine. 4 - Justification other than those listed in allowable values 1-3, document here : Discharge Discharge Date: Apr 25, 2017 Discharge Diagnosis: (1) Adjustment disorder with depressed mood Diagnosis: Principal ICD Code: F43.21 - Adjustment disorder with depressed mood Status: Acute Mental Status Exam at Disch Appears stated age, in casual clothing, calm and cooperative with interview, fair hygiene and grooming, fair eye contact. speech normal rate, tone and prosody, mood good, affect euthymic, TP linear, goal directed, TC denies SI, HI , AVH or delusions, insight fair, impulse control fair, judgement fair. A&O x 3 Pt Condition on Discharge: Fair Discharge Disposition: Discharge Home Discharge Instructions Diet Instructions: As Tolerated, No Restrictions Activities you can perform: Regular-No Restrictions Scheduled Appointment: Andrade Westfall Appointment Date: Apr 26, 2017 Appointment Time: 7:30 am Discharge Time > 30 minutes Discharge/Advance Care Plan Health Problems: (1) Adjustment disorder with depressed mood Goals to promote your health * To prevent worsening of your condition and complications * To maintain your health at the optimal level Directions to meet your goals Take your medications as prescribed Follow your dietary instruction Follow activity as directed Keep your appointments as scheduled Take your immunizations and boosters as scheduled If your symptoms worsen call your PCP, if no PCP go to Urgent Care Center or Emergency Room For 24/7 questions related to your inpatient stay or results of tests pending at discharge, please contact Dr. Michael Gabriel at Smoking is Dangerous to Your Health. Avoid second hand smoking Michael Gabriel MD Apr 25, 2017 18:33
== END 2017-04-25 13:15 | disposition home or self-care (01) | DRG 881 ==
LOC: NEPE 17:52 → NEDA 04-18 11:29 → H260 04-18 13:46 → H270 04-20 14:30
PROVIDERS: ADMIT Student in an Organized Health Care Education/Training Program; ATTEND Student in an Organized Health Care Education/Training Program
DX: F43.21 Adjustment disorder with depressed mood (principal); I95.9 Hypotension, unspecified; R45.851 Suicidal ideations; J45.909 Unspecified asthma, uncomplicated; I10 Essential (primary) hypertension; B18.2 Chronic viral hepatitis C; G43.909 Migraine, unspecified, not intractable, without status migrainosus; F90.9 Attention-deficit hyperactivity disorder, unspecified type; Z87.442 Personal history of urinary calculi; Z72.0 Tobacco use; F12.90 Cannabis use, unspecified, uncomplicated; Z87.11 Personal history of peptic ulcer disease; G40.909 Epilepsy, unspecified, not intractable, without status epilepticus; G93.9 Disorder of brain, unspecified; F43.10 Post-traumatic stress disorder, unspecified; S02.2XXD Fracture of nasal bones, subsequent encounter for fracture with routine healing; X58.XXXD Exposure to other specified factors, subsequent encounter; Z91.5 Personal history of self-harm
CPT/HCPCS: 76705; 80048; 80053; 80061; 80074; 80307; 82306; 82607; 83036; 84443; 85025; 86703; 93005; 95819

== ENCOUNTER 2017-04-30 19:47 | Emergency (ER) | payer BC, OTHER ==
[~2017-04-30 19:47] MED LIST changes: -AUGM875T3 PO; +FLUO20CA12 PO; +HYDR-3133 PO; +PROZ20CA11 PO; +QUET1TAB9 PO; +SERO200T PO
[2017-04-30 19:53] VITALS: BP 137/77; PULSE 114; RESP 18; TEMP 99.8; O2SAT 100
[2017-04-30] MEDS ORDERED: SODIUM CHLOR 0.9% 1000 ML INJ 1,000 ML IV SCH (19:56)
[2017-04-30 20:00] VITALS: RESP 14; O2SAT 98
[2017-04-30 20:31] LABS: APTT (PATIENT) 26.1 SEC (24.3-30.1); AUTOMATED NEUTROPHIL # 6.9 TH/MM3 (1.8-7.7); BASOPHIL % 0.4 % (0.0-2.0); EOSINOPHIL # 0.1 TH/MM3 (0-0.4); EOSINOPHIL % 1.1 % (0.0-4.0); HEMATOCRIT 43.3 % (39.0-51.0); HEMO FLAGS DIFF FINAL; LYMPH % 24.8 % (9.0-44.0); LYMPHOCYTE # 2.6 TH/MM3 (1.0-4.8); MEAN CELL VOLUME 89.8 FL (80.0-100.0); MEAN CORPUSCULAR HEMOGLOBIN 31.8 PG (27.0-34.0); MEAN CORPUSCULAR HGB CONC 35.4 % (32.0-36.0); MONO % 8.3 % (0.0-8.0); NEUT % 65.4 % (16.0-70.0); PLATELET COUNT 231 TH/MM3 (150-450); PROTHROMBIN TIME - PATIENT 10.7 SEC (9.8-11.6); RED BLOOD COUNT 4.82 MIL/MM3 (4.50-5.90); RED CELL DISTRIBUTION WIDTH 12.7 % (11.6-17.2); WHITE BLOOD COUNT 10.6 TH/MM3 (4.0-11.0)
[2017-04-30 20:40] LABS: ANION GAP 7 MEQ/L (5-15); AST (GOT) 42 U/L (15-37); BICARBONATE 24.8 MEQ/L (21.0-32.0); BLOOD UREA NITROGEN 8 MG/DL (7-18); CHLORIDE 108 MEQ/L (98-107); GLOMERULAR FILTRATION RATE 94 ML/MIN (>89); POTASSIUM 3.3 MEQ/L (3.5-5.1); SODIUM (NA) 140 MEQ/L (136-145)
[2017-04-30 20:41] LABS: ALCOHOL LESS THAN 3 MG/DL (0-5); ALT (GPT) 105 U/L (12-78)
[2017-04-30 20:43] LABS: ALKALINE PHOSPHATASE 70 U/L (45-117); TOTAL BILIRUBIN ADULT 1.1 MG/DL (0.2-1.0)
[2017-04-30 20:48] LABS: ACETAMINOPHEN LESS THAN 2.0 MCG/ML (10.0-30.0)
[2017-04-30 21:09] VITALS: BP 109/62; PULSE 93; RESP 14; O2SAT 100
--- NOTE | 2017-04-30 21:11 | PD ---
HPI Chief Complaint: OD/ Ingestion Time Seen by Provider: 19:56 Travel History International Travel<30 days: No Contact w/Intl Traveler<30days: No Traveled to known affect area: No History of Present Illness HPI 27-year-old male that presents to the ED for evaluation of overdose. Patient was apparently in his home and apparently took 10 5 mg lisinopril at once in an attempt to kill himself. Patient apparently were a note stating that he was given and his life. He is a history of adjustment disorder and has been evaluated for psychiatric evaluation in the past. Patient actually was released from the hospital recently for psychiatric evaluation. She would not really give us more information other than some knots of yes and now. He states that he has not taken anything else. He apparently was just released from [facility] recently and is to take medications for psych but unclear if his been taking them. He denies any pain of any kind. He apparently had a cut to his left arm but it was superficial and minimal bleeding noted. He does have a history of hep C. Most of the history was obtained from ambulance as well as from Robles acted. Patient was Robles acted by police after family member called the ambulance. PFSH Past Medical History Hx Anticoagulant Therapy: No ADHD: Yes Asthma: Yes (Patient states last attack in November of 2014) Bipolar Disorder: Yes Anxiety: Yes Depression: Yes Heart Rhythm Problems: No High Cholesterol: No Chemotherapy: No Chest Pain: No Congestive Heart Failure: No COPD: No Cerebrovascular Accident: No Diminished Hearing: No Endocrine: No Gastrointestinal Disorders: Yes (ULCERS, COLITIS) Genitourinary: Yes Hepatitis: Yes (C) Hypertension: Yes Immune Disorder: No Implanted Vascular Access Dvce: No Kidney Stones: Yes (Passed stones at age 20) Musculoskeletal: Yes Neurologic: Yes Psychiatric: Yes Reproductive: Yes (per pt-told at age 20 he was infertile d/t Meth use but has child ) Respiratory: Yes (SPORTS INDUCED ASTHMA) Immunizations Current: Yes Migraines: Yes Sleep Apnea: No Ulcer: Yes (UPPER AND LOWER GI BLEEDS ) Tetanus Vaccination: < 5 Years Influenza Vaccination: No Past Surgical History Abdominal Surgery: Yes (GI study for ulcers) Cardiac Surgery: No Ear Surgery: No Endocrine Surgery: No Eye Surgery: No Genitourinary Surgery: No Gynecologic Surgery: No Hysterectomy: No Oral Surgery: Yes ([place] Tooth pulled in 2011) Thoracic Surgery: No Other Surgery: Yes Social History Alcohol Use: Yes Tobacco Use: Yes (1PPD) Substance Use: Yes (MARIJUANA, hx of RX DRUGS) Allergies-Medications (Allergen,Severity, Reaction): Coded Allergies: penicillin G (Unverified Allergy, Severe, Anaphylaxis, 04/30/17) ziprasidone (Unverified Allergy, Severe, Anaphylaxis, 04/30/17) codeine (Unverified Allergy, Intermediate, ITCHING, 04/30/17) tramadol (Unverified Allergy, Intermediate, GI UPSET, 04/30/17) enoxaparin (Unverified Allergy, Mild, 04/30/17) heparin (porcine) (Unverified Allergy, Mild, 04/30/17) levofloxacin (Unverified Allergy, Unknown, 04/30/17) prochlorperazine (Unverified Allergy, Unknown, rash, 04/30/17) Reported Meds & Prescriptions Reported Meds & Active Scripts Active Hydroxyzine HCl 25 Mg Tab 25 Mg PO Q6HR PRN 15 Days Quetiapine (Quetiapine Fumarate) 200 Mg Tab 200 Mg PO Q6HR 30 Days Fluoxetine (Fluoxetine HCl) 20 Mg Capsule 20 Mg PO DAILY 30 Days Ibuprofen 800 Mg Tab 800 Mg PO Q8H PRN Reported Prozac (Fluoxetine HCl) 20 Mg Cap 60 Mg PO DAILY Seroquel (Quetiapine Fumarate) 200 Mg Tab 200 Mg PO QID Review of Systems Except as stated in HPI: all other systems reviewed are Neg Physical Exam Narrative GENERAL: SKIN: Warm and dry. HEAD: Atraumatic. Normocephalic. EYES: Pupils equal and round. No scleral icterus. No injection or drainage. ENT: No nasal bleeding or discharge. Mucous membranes pink and moist. Tongue is midline. No uvula deviation. NECK: Trachea midline. No JVD. CARDIOVASCULAR: Regular rate and rhythm. No murmurs, S3, S4. RESPIRATORY: No accessory muscle use. Clear to auscultation. Breath sounds equal bilaterally. GASTROINTESTINAL: Abdomen soft, non-tender, nondistended. Hepatic and splenic margins not palpable. MUSCULOSKELETAL: Extremities without clubbing, cyanosis, or edema. No obvious deformities. Full range of motion of the upper and lower extremities bilaterally. Patient does have a very superficial less than 1 cm superficial cut to the left wrist. Minimal bleeding noted. Less than 2 mm deep. Patient able to move all fingers and has 2+ pulses bilaterally. Good capillary refill. Sensation intact bilaterally. NEUROLOGICAL: Awake and alert. No obvious cranial nerve deficits. Motor grossly within normal limits. Five out of 5 muscle strength in the arms and legs. Normal speech. PSYCHIATRIC: Appropriate mood and affect; insight and judgment normal. Data Data Last Documented VS Vital Signs Date Time Temp Pulse Resp B/P (MAP) Pulse Ox O2 Delivery O2 Flow Rate FiO2 04/30/17 21:09 93 14 109/62 (78) 100 04/30/17 20:00 Room Air 04/30/17 19:53 99.8 Orders Orders Complete Blood Count With Diff (04/30/17 19:56) Comprehensive Metabolic Panel (04/30/17 19:56) Urinalysis - C+S If Indicated (04/30/17 19:56) Electrocardiogram (04/30/17 19:56) Oximetry (04/30/17 19:56) Iv Access Insert/Monitor (04/30/17 19:56) Ecg Monitoring (04/30/17 19:56) Psych Screen (04/30/17 19:56) Drug Screen, Random Urine (04/30/17 19:56) Alcohol (Ethanol) (04/30/17 19:56) Salicylates (Aspirin) (04/30/17 19:56) Tylenol (Acetaminophen) (04/30/17 19:56) Wound Care (04/30/17 19:56) Sodium Chlor 0.9% 1000 Ml Inj (Ns 1000 M (04/30/17 19:56) Coag Profile (04/30/17 19:56) Call Poison Control (04/30/17 19:56) ^ Sitter (04/30/17 20:05) Labs Laboratory Tests Test 04/30/17 20:00 04/30/17 20:55 White Blood Count 10.6 TH/MM3 Red Blood Count 4.82 MIL/MM3 Hemoglobin 15.3 GM/DL Hematocrit 43.3 % Mean Corpuscular Volume 89.8 FL Mean Corpuscular Hemoglobin 31.8 PG Mean Corpuscular Hemoglobin Concent 35.4 % Red Cell Distribution Width 12.7 % Platelet Count 231 TH/MM3 Mean Platelet Volume 9.2 FL Neutrophils (%) (Auto) 65.4 % Lymphocytes (%) (Auto) 24.8 % Monocytes (%) (Auto) 8.3 % Eosinophils (%) (Auto) 1.1 % Basophils (%) (Auto) 0.4 % Neutrophils # (Auto) 6.9 TH/MM3 Lymphocytes # (Auto) 2.6 TH/MM3 Monocytes # (Auto) 0.9 TH/MM3 Eosinophils # (Auto) 0.1 TH/MM3 Basophils # (Auto) 0.0 TH/MM3 CBC Comment DIFF FINAL Differential Comment Prothrombin Time 10.7 SEC Prothromb Time International Ratio 1.0 RATIO Activated Partial Thromboplast Time 26.1 SEC Blood Urea Nitrogen 8 MG/DL Creatinine 0.97 MG/DL Random Glucose 98 MG/DL Total Protein 6.9 GM/DL Albumin 3.8 GM/DL Calcium Level 8.6 MG/DL Alkaline Phosphatase 70 U/L Aspartate Amino Transf (AST/SGOT) 42 U/L Alanine Aminotransferase (ALT/SGPT) 105 U/L Total Bilirubin 1.1 MG/DL Sodium Level 140 MEQ/L Potassium Level 3.3 MEQ/L Chloride Level 108 MEQ/L Carbon Dioxide Level 24.8 MEQ/L Anion Gap 7 MEQ/L Estimat Glomerular Filtration Rate 94 ML/MIN Salicylates Level LESS THAN 1.7 MG/DL Acetaminophen Level LESS THAN 2.0 MCG/ML Ethyl Alcohol Level LESS THAN 3 MG/DL Urine Color YELLOW Urine Turbidity HAZY Urine pH 7.0 Urine Specific [place] 1.021 Urine Protein NEG mg/dL Urine Glucose (UA) NEG mg/dL Urine Ketones 40 mg/dL Urine Occult Blood NEG Urine Nitrite NEG Urine Bilirubin NEG Urine Urobilinogen 8.0 MG/DL Urine Leukocyte Esterase NEG Urine WBC 3 /hpf Urine Calcium Oxalate Crystals OCC /hpf Urine Amorphous Sediment RARE Microscopic Urinalysis Comment CULT NOT INDICATED Urine Opiates Screen NEG Urine Barbiturates Screen NEG Urine Amphetamines Screen NEG Urine Benzodiazepines Screen NEG Urine Cocaine Screen POS Urine Cannabinoids Screen POS MDM Medical Decision Making Medical Screen Exam Complete: Yes Emergency Medical Condition: Yes Medical Record Reviewed: Yes Interpretation(s) CBC & BMP Diagram 04/30/17 20:00 Total Protein 6.9, Albumin 3.8, Calcium Level 8.6, Alkaline Phosphatase 70, Aspartate Amino Transf (AST/SGOT) 42 H, Alanine Aminotransferase (ALT/SGPT) 105 H, Total Bilirubin 1.1 H tox screen negative coags WNL EKG shows sinus tachycardia but no sign of acute ischemia or arrythmia. Differential Diagnosis Depression versus suicidal ideation versus anxiety versus adjustment disorder versus mood disorder versus bipolar disorder versus schizophrenia versus paranoid disorder versus psychosis versus substance abuse versus alcohol abuse versus alcohol induced psychosis versus homicidality addition versus cutting versus personality disorder versus overdose versus ORTIZ inhibitor overdose Narrative Course 27-year-old male that presents to the ED for evaluation of overdose. Patient was properly examined and was found to have signs and symptoms consistent appears to be overdose. Likely from ORTIZ inhibitor. Patient has a history of psychiatric illness and has been Robles acted in the past. Patient was just released recently. He has a history of polysubstance abuse as well. History of hep C as well. Labs and imaging were ordered. Posterior control will be contacted. Patient was given IV fluids. Labs were essentially unremarkable. EKG unremarkable other than tachycardia. Poison control recommends observation for next 6-8 hours. Case was discussed in my attending who recommends the patient be observed for the next 6 hours and if symptomatic patient will be medically clear for psychiatric to be evaluate. Case was signed out to him pending medical clearance. Diagnosis Primary Impression: Overdose Qualified Codes: T50.902A - Poisoning by unspecified drugs, medicaments and biological substances, intentional self-harm, initial encounter Additional Impression: Adjustment disorder with depressed mood Gil Parada Apr 30, 2017 21:11
[2017-04-30 21:23] LABS: BLOOD, URINE NEG (NEG); CALCIUM OXALATE CRYSTALS,URINE OCC /hpf; COMMENT (UR) CULT NOT INDICATED; CULTURE IF INDICATED CULT NOT INDICATED; GLUCOSE,URINE NEG (NEG); KETONE, URINE 40 mg/dL (NEG); NITRITE,URINE NEG (NEG); URINE COLOR YELLOW (YELLW/STRAW)
--- NOTE | 2017-04-30 22:16 | EKG ---
Date Performed: 04/30/2017 Time Performed: 20:00:47 PTAGE: 27 years EKG: SINUS TACHYCARDIA POSSIBLE RIGHT ATRIAL ENLARGEMENT POSSIBLE LEFT ATRIAL ENLARGEMENT BORDER LINE RIGHT AXIS DEVIATION ABNORMAL RHYTHM ECG PREVIOUS TRACING : 04/19/2017 09.15 Compared to the previous tracing rate faster DOCTOR: Fariha Manning Interpretating Date/Time 04/30/2017 22:14:49
[2017-05-01] VITALS: BP 124/71; PULSE 79; RESP 16; O2SAT 100
[2017-05-01 03:16] VITALS: BP 124/65; PULSE 73; RESP 14; O2SAT 99
[2017-05-01 07:10] VITALS: BP 120/72; PULSE 81; RESP 16; TEMP 97.9; O2SAT 99
[2017-05-01 11:00] VITALS: BP 104/76; PULSE 69; RESP 16; TEMP 98; O2SAT 99
[2017-05-01] MEDS ORDERED: FLUO20CA12 PO (15:06)
[2017-05-01] MEDS ORDERED: SERO100T PO (15:06)
--- NOTE | 2017-05-01 15:17 | PD ---
History of Present Illness Chief Complaint: OD/ Ingestion Time Seen by Provider: 14:45 Travel History International Travel<30 Days: No Contact w/Intl Traveler<30days: No Known affected area: No Legal Status Legal Status: Robles Act Robles Act Signed By: Randolph Villela History of Present Illness: Patient seen at bedside with his and nurse Jazmin. Patient take her acted last night after cutting his wrist. Apparently patient was also treated here in the recent past and was noncompliant with his medications upon discharge. At this time, he admits to making a mistake and being noncompliant with prescription medicines and going back to using drugs. However, he is verbally sahara for safety. He denies suicidal or homicidal ideation, plan or intent. He has no psychotic symptoms and his cognition is intact. He is verbally sahara for safety. His would like for him to be stabilized on psychotropic medications and a discussion was held in which we decided to return to Prozac and a lower dose of Seroquel. PFSH Past Medical History Hx Anticoagulant Therapy: No ADHD: Yes Asthma: Yes (Patient states last attack in November of 2014) Bipolar Disorder: Yes Anxiety: Yes Depression: Yes Heart Rhythm Problems: No High Cholesterol: No Chemotherapy: No Chest Pain: No Congestive Heart Failure: No COPD: No Cerebrovascular Accident: No Diminished Hearing: No Endocrine: No Gastrointestinal Disorders: Yes (ULCERS, COLITIS) Genitourinary: Yes Hepatitis: Yes (C) Hypertension: Yes Immune Disorder: No Implanted Vascular Access Dvce: No Kidney Stones: Yes (Passed stones at age 20) Musculoskeletal: Yes Neurologic: Yes Psychiatric: Yes Reproductive: Yes (per pt-told at age 20 he was infertile d/t Meth use but has child ) Respiratory: Yes (SPORTS INDUCED ASTHMA) Immunizations Current: Yes Migraines: Yes Sleep Apnea: No Ulcer: Yes (UPPER AND LOWER GI BLEEDS ) Tetanus Vaccination: < 5 Years Influenza Vaccination: No Past Surgical History Abdominal Surgery: Yes (GI study for ulcers) Cardiac Surgery: No Ear Surgery: No Endocrine Surgery: No Eye Surgery: No Genitourinary Surgery: No Gynecologic Surgery: No Hysterectomy: No Oral Surgery: Yes ([place] Tooth pulled in 2011) Thoracic Surgery: No Other Surgery: Yes Psychiatric History Psychiatric History Hx Psychiatric Treatment: HAS HAD SEVERAL PAST HOSPITALIZATIONS FOR BIPOLAR AND SUBSTANCE ABUSE DISORDER. HAS SEEN [facility] AND [facility]. HAS SEEN CORAL AN OUTPATIENT AT [facility]. HAS HAD DIFFICULTY RE-ESTABLISHING AT [facility]. HE HAD AN APPOINTMENT. TRIED TO CALL TO CANCEL BECAUSE PATIENT WAS IN CUSTODIAL FOR 6 MONTHS. THEY WOULD NOT ACCEPT THE CANCELLATION FROM HER AND NEEDED TO HEAR FROM THE PATIENT. NOW HE WOULD BE A This physician sees no significant objective clinical evidence of bipolar disorder or other major mental illness. Patient appears to be drug abuse. WALK IN BUT THE LINE WAS SO LONG, HE WAS NOT ABLE TO BE SEEN. History of Inpatient Treatment: Yes Guns or firearms in home: No Social History Hx Alcohol Use: Yes Hx Tobacco Use: Yes (1PPD) Hx Substance Use: Yes Substance Use Type: Marijuana, Cocaine Other Substances Used: RECENT USE OF MARIJUANA, ALCOHOL AND XANAX Hx of Substance Use Treatment: Yes Allergies-Medications (Allergen,Severity, Reaction): Coded Allergies: penicillin G (Unverified Allergy, Severe, Anaphylaxis, 04/30/17) ziprasidone (Unverified Allergy, Severe, Anaphylaxis, 04/30/17) codeine (Unverified Allergy, Intermediate, ITCHING, 04/30/17) tramadol (Unverified Allergy, Intermediate, GI UPSET, 04/30/17) enoxaparin (Unverified Allergy, Mild, 04/30/17) heparin (porcine) (Unverified Allergy, Mild, 04/30/17) levofloxacin (Unverified Allergy, Unknown, 04/30/17) prochlorperazine (Unverified Allergy, Unknown, rash, 04/30/17) Reported Meds & Prescriptions Reported Meds & Active Scripts Active Seroquel (Quetiapine Fumarate) 100 Mg Tab 100 Mg PO BID Fluoxetine (Fluoxetine HCl) 20 Mg Capsule 20 Mg PO DAILY 30 Days Hydroxyzine HCl 25 Mg Tab 25 Mg PO Q6HR PRN 15 Days Quetiapine (Quetiapine Fumarate) 200 Mg Tab 200 Mg PO Q6HR 30 Days Ibuprofen 800 Mg Tab 800 Mg PO Q8H PRN Reported Prozac (Fluoxetine HCl) 20 Mg Cap 60 Mg PO DAILY Seroquel (Quetiapine Fumarate) 200 Mg Tab 200 Mg PO QID Review of Systems Except as stated in HPI: all other systems reviewed are Neg Exam Alert: Yes [place]: Person, Place, Date, Situation Mood: Calm Affect: Appropriate Speech: Clear, Logical Eye Contact: Normal Memory Intact: Immediate, Recent, Remote Insight/Judgement Adequate MDM Medical Decision Making Medical Record Reviewed: Yes Assessment/Plan Patient interviewed at bedside with his present and the nurse, Jazmin. Medical records reviewed. His physician feels the patient's main problem is drug abuse. However he was given prescriptions for Prozac and Seroquel per his request. Patient was urged to seek follow up at [facility]. He does not meet Robles act criteria at this time and he does not meet criteria for involuntary psychiatric hospitalization. No suicidal or homicidal ideation, plan or intent and the patient verbally contracts for safety. Orders Orders Complete Blood Count With Diff (04/30/17 19:56) Comprehensive Metabolic Panel (04/30/17 19:56) Urinalysis - C+S If Indicated (04/30/17 19:56) Electrocardiogram (04/30/17 19:56) Oximetry (04/30/17 19:56) Iv Access Insert/Monitor (04/30/17 19:56) Ecg Monitoring (04/30/17 19:56) Psych Screen (04/30/17 19:56) Drug Screen, Random Urine (04/30/17 19:56) Alcohol (Ethanol) (04/30/17 19:56) Salicylates (Aspirin) (04/30/17 19:56) Tylenol (Acetaminophen) (04/30/17 19:56) Wound Care (04/30/17 19:56) Sodium Chlor 0.9% 1000 Ml Inj (Ns 1000 M (04/30/17 19:56) Coag Profile (04/30/17 19:56) Call Poison Control (04/30/17 19:56) ^ Sitter (04/30/17 20:05) Diet Regular Basic (05/01/17 Breakfast) Results Vital Signs Date Time Temp Pulse Resp B/P (MAP) Pulse Ox O2 Delivery O2 Flow Rate FiO2 05/01/17 11:00 98.0 69 16 104/76 (85) 99 Room Air 05/01/17 07:10 16 99 Room Air 05/01/17 07:10 84 16 99 Room Air 05/01/17 07:10 97.9 81 16 120/72 (88) 99 Room Air 05/01/17 03:16 73 14 124/65 (84) 99 05/01/17 00:00 79 16 124/71 (88) 100 04/30/17 21:09 93 14 109/62 (78) 100 04/30/17 20:00 14 98 Room Air 04/30/17 19:53 99.8 114 18 137/77 (97) 100 Laboratory Tests Test 04/30/17 20:00 04/30/17 20:55 White Blood Count 10.6 Red Blood Count 4.82 Hemoglobin 15.3 Hematocrit 43.3 Mean Corpuscular Volume 89.8 Mean Corpuscular Hemoglobin 31.8 Mean Corpuscular Hemoglobin Concent 35.4 Red Cell Distribution Width 12.7 Platelet Count 231 Mean Platelet Volume 9.2 Neutrophils (%) (Auto) 65.4 Lymphocytes (%) (Auto) 24.8 Monocytes (%) (Auto) 8.3 Eosinophils (%) (Auto) 1.1 Basophils (%) (Auto) 0.4 Neutrophils # (Auto) 6.9 Lymphocytes # (Auto) 2.6 Monocytes # (Auto) 0.9 Eosinophils # (Auto) 0.1 Basophils # (Auto) 0.0 CBC Comment DIFF FINAL Differential Comment Prothrombin Time 10.7 Prothromb Time International Ratio 1.0 Activated Partial Thromboplast Time 26.1 Blood Urea Nitrogen 8 Creatinine 0.97 Random Glucose 98 Total Protein 6.9 Albumin 3.8 Calcium Level 8.6 Alkaline Phosphatase 70 Aspartate Amino Transf (AST/SGOT) 42 Alanine Aminotransferase (ALT/SGPT) 105 Total Bilirubin 1.1 Sodium Level 140 Potassium Level 3.3 Chloride Level 108 Carbon Dioxide Level 24.8 Anion Gap 7 Estimat Glomerular Filtration Rate 94 Salicylates Level LESS THAN 1.7 Acetaminophen Level LESS THAN 2.0 Ethyl Alcohol Level LESS THAN 3 Urine Color YELLOW Urine Turbidity HAZY Urine pH 7.0 Urine Specific [place] 1.021 Urine Protein NEG Urine Glucose (UA) NEG Urine Ketones 40 Urine Occult Blood NEG Urine Nitrite NEG Urine Bilirubin NEG Urine Urobilinogen 8.0 Urine Leukocyte Esterase NEG Urine WBC 3 Urine Calcium Oxalate Crystals OCC Urine Amorphous Sediment RARE Microscopic Urinalysis Comment CULT NOT INDICATED Urine Opiates Screen NEG Urine Barbiturates Screen NEG Urine Amphetamines Screen NEG Urine Benzodiazepines Screen NEG Urine Cocaine Screen POS Urine Cannabinoids Screen POS Diagnosis Primary Impression: Adjustment disorder with mixed disturbance of emotions and conduct Additional Impression: Cocaine abuse Prescriptions Quetiapine (Seroquel) 100 Mg Tab 100 MG PO BID, #60 TAB 0 Refills Prov: Randall Lucas MD 05/01/17 Fluoxetine (Fluoxetine) 20 Mg Capsule 20 MG PO DAILY for health for 30 Days, #30 CAP Prov: Randall Lucas MD 05/01/17 Problem Qualifiers Randall Lucas MD May 01, 2017 15:17
[2017-05-01 15:45] VITALS: BP 110/77; TEMP 97.8
== END 2017-05-01 15:45 | disposition home or self-care (01) ==
LOC: NEPE 19:47
DX: T50.902A Poisoning by unspecified drugs, medicaments and biological substances, intentional self-harm, initial encounter (principal); F43.25 Adjustment disorder with mixed disturbance of emotions and conduct; F14.10 Cocaine abuse, uncomplicated; R94.31 Abnormal electrocardiogram [ECG] [EKG]; I10 Essential (primary) hypertension; F17.200 Nicotine dependence, unspecified, uncomplicated; Z86.59 Personal history of other mental and behavioral disorders; Z87.09 Personal history of other diseases of the respiratory system; Z87.19 Personal history of other diseases of the digestive system; Z86.19 Personal history of other infectious and parasitic diseases; Z87.39 Personal history of other diseases of the musculoskeletal system and connective tissue; Z86.69 Personal history of other diseases of the nervous system and sense organs
CPT/HCPCS: 80053; 80307; 81001; 85025; 85610; 85730; 93005; 99285; J7030

== ENCOUNTER 2017-05-24 09:59 | Emergency (ER) | payer BC, OTHER ==
[~2017-05-24] VITALS: Ht 198.1 cm; Wt 75.0 kg
[~2017-05-24 09:59] MED LIST changes: +SERO100T PO
[2017-05-24 10:00] VITALS: BP 132/65; PULSE 112; RESP 18; TEMP 98.6; O2SAT 99
[2017-05-24] MEDS ORDERED: TOPA25TA8 PO (10:19)
[2017-05-24] MEDS ORDERED: SODIUM CHLOR 0.9% 1000 ML INJ 1,000 ML IV SCH (10:49)
--- NOTE | 2017-05-24 10:50 | PD ---
HPI Chief Complaint: GI Complaint Time Seen by Provider: 10:42 Travel History International Travel<30 days: No Contact w/Intl Traveler<30days: No Traveled to known affect area: No History of Present Illness HPI Patient is a 27-year-old male with a history of hepatitis C presents emergency Department nausea vomiting epigastric discomfort and emesis initially clear followed by blood-streaked. He states his been going on for the past 2 days. Endorse to mild temperature of 101 Fahrenheit at home. Denies any blood in the stool or melena stools. Denies any diarrhea. Patient states he has been able tolerate some by mouth fluids. Denies a history of pancreatitis. States he did have an endoscopy once in the past for similar symptoms and did show some gastritis and colitis but he does not carry a history of esophageal varices. States the symptoms are moderate, constant, no alleviating or exacerbating factors can be identified. PFSH Past Medical History Hx Anticoagulant Therapy: No ADHD: Yes Asthma: Yes (Patient states last attack in November of 2014) Bipolar Disorder: Yes Anxiety: Yes Depression: Yes Heart Rhythm Problems: No High Cholesterol: No Chemotherapy: No Chest Pain: No Congestive Heart Failure: No COPD: No Cerebrovascular Accident: No Diminished Hearing: No Endocrine: No Gastrointestinal Disorders: Yes (ULCERS, COLITIS) Genitourinary: Yes Hepatitis: Yes (C) Hypertension: Yes Immune Disorder: No Implanted Vascular Access Dvce: No Kidney Stones: Yes Musculoskeletal: Yes Neurologic: Yes Psychiatric: Yes Reproductive: Yes (per pt-told at age 20 he was infertile d/t Meth use but has child ) Respiratory: Yes Immunizations Current: Yes Migraines: Yes Sleep Apnea: No Ulcer: Yes (UPPER AND LOWER GI BLEEDS ) Past Surgical History Abdominal Surgery: Yes (GI study for ulcers) Cardiac Surgery: No Ear Surgery: No Endocrine Surgery: No Eye Surgery: No Genitourinary Surgery: No Gynecologic Surgery: No Hysterectomy: No Oral Surgery: Yes ([place] Tooth pulled in 2011) Thoracic Surgery: No Other Surgery: Yes Social History Alcohol Use: No Tobacco Use: Yes (3-4 pd) Substance Use: No Allergies-Medications (Allergen,Severity, Reaction): Coded Allergies: penicillin G (Unverified Allergy, Severe, Anaphylaxis, 05/24/17) ziprasidone (Unverified Allergy, Severe, Anaphylaxis, 05/24/17) codeine (Unverified Allergy, Intermediate, ITCHING, 05/24/17) tramadol (Unverified Allergy, Intermediate, GI UPSET, 05/24/17) enoxaparin (Unverified Allergy, Mild, 05/24/17) heparin (porcine) (Unverified Allergy, Mild, 05/24/17) levofloxacin (Unverified Allergy, Unknown, 05/24/17) prochlorperazine (Unverified Allergy, Unknown, rash, 05/24/17) Reported Meds & Prescriptions Reported Meds & Active Scripts Active Zofran Odt (Ondansetron Odt) 4 Mg Tab 4 Mg SL Q6HR PRN Reported Topamax (Topiramate) 25 Mg Tab 25 Mg PO BID Prozac (Fluoxetine HCl) 20 Mg Cap 60 Mg PO DAILY Seroquel (Quetiapine Fumarate) 200 Mg Tab 200 Mg PO QID Review of Systems Except as stated in HPI: all other systems reviewed are Neg Physical Exam Narrative GENERAL: Well-developed well-nourished in no obvious distress. SKIN: Focused skin assessment warm/dry. HEAD: Atraumatic. Normocephalic. EYES: Pupils equal and round. No scleral icterus. No injection or drainage. ENT: No nasal bleeding or discharge. Mucous membranes pink and moist. NECK: Trachea midline. No JVD. CARDIOVASCULAR: Regular rate and rhythm. No murmur appreciated. RESPIRATORY: No accessory muscle use. Clear to auscultation. Breath sounds equal bilaterally. GASTROINTESTINAL: Abdomen soft, non-tender, nondistended. Hepatic and splenic margins not palpable. MUSCULOSKELETAL: No obvious deformities. No clubbing. No cyanosis. No edema. NEUROLOGICAL: Awake and alert. No obvious cranial nerve deficits. Motor grossly within normal limits. Normal speech. PSYCHIATRIC: Appropriate mood and affect; insight and judgment normal. Data Data Last Documented VS Vital Signs Date Time Temp Pulse Resp B/P (MAP) Pulse Ox O2 Delivery O2 Flow Rate FiO2 05/24/17 13:49 94 16 124/78 (93) 97 05/24/17 10:00 98.6 Orders Orders Complete Blood Count With Diff (05/24/17 10:49) Comprehensive Metabolic Panel (05/24/17 10:49) Lipase (05/24/17 10:49) Lactic Acid (05/24/17 10:49) Prothrombin Time / Inr (Pt) (05/24/17 10:49) Act Partial Throm Time (Ptt) (05/24/17 10:49) Urinalysis - C+S If Indicated (05/24/17 10:49) Iv Access Insert/Monitor (05/24/17 10:49) Ecg Monitoring (05/24/17 10:49) Oximetry (05/24/17 10:49) Sodium Chlor 0.9% 1000 Ml Inj (Ns 1000 M (05/24/17 10:49) Sodium Chloride 0.9% Flush (Ns Flush) (05/24/17 11:00) Ondansetron Inj (Zofran Inj) (05/24/17 12:45) Ondansetron Inj (Zofran Inj) (05/24/17 13:15) Labs Laboratory Tests Test 05/24/17 11:00 05/24/17 11:44 White Blood Count 11.7 TH/MM3 Red Blood Count 4.85 MIL/MM3 Hemoglobin 15.0 GM/DL Hematocrit 44.1 % Mean Corpuscular Volume 90.8 FL Mean Corpuscular Hemoglobin 30.8 PG Mean Corpuscular Hemoglobin Concent 33.9 % Red Cell Distribution Width 13.1 % Platelet Count 252 TH/MM3 Mean Platelet Volume 8.4 FL Neutrophils (%) (Auto) 68.1 % Lymphocytes (%) (Auto) 18.4 % Monocytes (%) (Auto) 8.6 % Eosinophils (%) (Auto) 4.4 % Basophils (%) (Auto) 0.5 % Neutrophils # (Auto) 8.0 TH/MM3 Lymphocytes # (Auto) 2.2 TH/MM3 Monocytes # (Auto) 1.0 TH/MM3 Eosinophils # (Auto) 0.5 TH/MM3 Basophils # (Auto) 0.1 TH/MM3 CBC Comment DIFF FINAL Differential Comment Prothrombin Time 10.3 SEC Prothromb Time International Ratio 0.9 RATIO Activated Partial Thromboplast Time 28.2 SEC Blood Urea Nitrogen 4 MG/DL Creatinine 0.91 MG/DL Random Glucose 70 MG/DL Total Protein 7.0 GM/DL Albumin 3.7 GM/DL Calcium Level 8.6 MG/DL Alkaline Phosphatase 73 U/L Aspartate Amino Transf (AST/SGOT) 36 U/L Alanine Aminotransferase (ALT/SGPT) 66 U/L Total Bilirubin 1.7 MG/DL Sodium Level 141 MEQ/L Potassium Level 3.8 MEQ/L Chloride Level 107 MEQ/L Carbon Dioxide Level 27.5 MEQ/L Anion Gap 7 MEQ/L Estimat Glomerular Filtration Rate 102 ML/MIN Lactic Acid Level 0.6 mmol/L Lipase 72 U/L Urine Color YELLOW Urine Turbidity CLEAR Urine pH 7.0 Urine Specific [place] 1.008 Urine Protein NEG mg/dL Urine Glucose (UA) NEG mg/dL Urine Ketones NEG mg/dL Urine Occult Blood NEG Urine Nitrite NEG Urine Bilirubin NEG Urine Urobilinogen LESS THAN 2.0 MG/DL Urine Leukocyte Esterase NEG Urine RBC LESS THAN 1 /hpf Urine WBC LESS THAN 1 /hpf Urine Mucus FEW /lpf Microscopic Urinalysis Comment CULT NOT INDICATED MDM Medical Decision Making Medical Screen Exam Complete: Yes Emergency Medical Condition: Yes Differential Diagnosis Gastritis, gastroenteritis, anemia, hematemesis, life-threatening hematemesis unlikely, Ling-Watson tear. Narrative Course Patient roomed in the emergency department, he appears well in no distress. Given Zofran and fluids and is feeling better. Labs are reassuring. Hemoglobin is 15. At this time is no indication further workup, the patient's abdomen is benign is no indication for advanced to call imaging. 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 Discussed return to ED criteria and symptomatic management home. Diagnosis Primary Impression: Gastritis Qualified Codes: K29.01 - Acute gastritis with bleeding Referrals: Theron Soriano MD Med/Other Pt SpecificInfo: Prescription(s) given Scripts Ondansetron Odt (Zofran Odt) 4 Mg Tab 4 MG SL Q6HR Y for Nausea/Vomiting, #30 TAB 0 Refills Prov: Jan Rebollar MD 05/24/17 Disposition: DISCHARGE HOME Condition: Stable Jan Rebollar MD May 24, 2017 10:50
[2017-05-24] MEDS ORDERED: SODIUM CHLORIDE 0.9% FLUSH 10 ML FLUSH IV FLUSH PRN (11:00)
[2017-05-24 11:22] LABS: BASOPHIL # 0.1 TH/MM3 (0-0.2); BASOPHIL % 0.5 % (0.0-2.0); EOSINOPHIL # 0.5 TH/MM3 (0-0.4); EOSINOPHIL % 4.4 % (0.0-4.0); HEMATOCRIT 44.1 % (39.0-51.0); HEMO FLAGS DIFF FINAL; LYMPH % 18.4 % (9.0-44.0); LYMPHOCYTE # 2.2 TH/MM3 (1.0-4.8); MEAN CELL VOLUME 90.8 FL (80.0-100.0); MEAN CORPUSCULAR HEMOGLOBIN 30.8 PG (27.0-34.0); MEAN CORPUSCULAR HGB CONC 33.9 % (32.0-36.0); MONO % 8.6 % (0.0-8.0); NEUT % 68.1 % (16.0-70.0); PLATELET COUNT 252 TH/MM3 (150-450); RED BLOOD COUNT 4.85 MIL/MM3 (4.50-5.90); RED CELL DISTRIBUTION WIDTH 13.1 % (11.6-17.2); WHITE BLOOD COUNT 11.7 TH/MM3 (4.0-11.0)
[2017-05-24 11:33] LABS: ALT (GPT) 66 U/L (12-78); ANION GAP 7 MEQ/L (5-15); AST (GOT) 36 U/L (15-37); BICARBONATE 27.5 MEQ/L (21.0-32.0); BLOOD UREA NITROGEN 4 MG/DL (7-18); CHLORIDE 107 MEQ/L (98-107); GLOMERULAR FILTRATION RATE 102 ML/MIN (>89); POTASSIUM 3.8 MEQ/L (3.5-5.1); SODIUM (NA) 141 MEQ/L (136-145)
[2017-05-24 11:34] LABS: ALKALINE PHOSPHATASE 73 U/L (45-117); TOTAL BILIRUBIN ADULT 1.7 MG/DL (0.2-1.0)
[2017-05-24 11:39] LABS: APTT (PATIENT) 28.2 SEC (24.3-30.1); INTERNATIONAL NORMALIZED RATIO 0.9 RATIO; PROTHROMBIN TIME - PATIENT 10.3 SEC (9.8-11.6)
[2017-05-24 12:21] LABS: BLOOD, URINE NEG (NEG); COMMENT (UR) CULT NOT INDICATED; CULTURE IF INDICATED CULT NOT INDICATED; GLUCOSE,URINE NEG (NEG); KETONE, URINE NEG (NEG); MUCUS URINE FEW /lpf (OCC); NITRITE,URINE NEG (NEG); URINE COLOR YELLOW (YELLW/STRAW)
[2017-05-24] MEDS ORDERED: ONDANSETRON HCL 4 MG/2 ML VIAL IV PUSH ONE ×2 (12:45→13:15)
[2017-05-24] MEDS ORDERED: ZOFR4TAB3 SL (13:12)
[2017-05-24 13:49] VITALS: BP 124/78
== END 2017-05-24 13:59 | disposition home or self-care (01) ==
LOC: NEPD 09:59
DX: K29.70 Gastritis, unspecified, without bleeding (principal); B19.20 Unspecified viral hepatitis C without hepatic coma; F90.9 Attention-deficit hyperactivity disorder, unspecified type; J45.909 Unspecified asthma, uncomplicated; F31.9 Bipolar disorder, unspecified; I10 Essential (primary) hypertension; Z87.442 Personal history of urinary calculi; Z79.899 Other long term (current) drug therapy
CPT/HCPCS: 80053; 81001; 83605; 83690; 85025; 85610; 85730; 96361; 96374; 99284; J2405; J7030

== ENCOUNTER 2017-05-26 08:23 | Emergency (ER) | payer BC ==
[~2017-05-26] VITALS: Ht 198.1 cm; Wt 72.5 kg
[~2017-05-26 08:23] MED LIST changes: -FLUO20CA12 PO; -HYDR-3133 PO; -IBUP800T23 PO; -QUET1TAB9 PO; -SERO100T PO; +TOPA25TA8 PO; +ZOFR4TAB3 SL
[2017-05-26 08:25] VITALS: BP 139/73; PULSE 100; RESP 16; TEMP 98.4; O2SAT 98
--- NOTE | 2017-05-26 08:33 | PD ---
HPI Chief Complaint: GI Complaint Time Seen by Provider: 08:33 Travel History International Travel<30 days: No Contact w/Intl Traveler<30days: No Traveled to known affect area: No History of Present Illness HPI Patient came in with multiple complaints including cough, chest pain, nausea and vomiting that has been on and off for past 5 days. I will also been told by the nurse that he recently broke up with his girlfriend and has been evicted from her house. Vital signs were stable. Patient says that he had 2 episodes of vomiting this morning and an episode of diarrhea last night he has history of asthma and seizures but has not taken any of his medication since he does not have that anymore. He had his last seizure 5 days ago. Currently is awake and answering questions appropriately. Chest pain is dull and retrosternal with no radiation. No aggravating or relieving factors identified. [facility] Past Medical History Narrative Medical List of his past medical, surgical, social and family history is reviewed from the nursing note. Hx Anticoagulant Therapy: No ADHD: Yes Asthma: Yes (Patient states last attack in November of 2014) Bipolar Disorder: Yes Anxiety: Yes Depression: Yes Heart Rhythm Problems: No High Cholesterol: No Chemotherapy: No Chest Pain: No Congestive Heart Failure: No COPD: No Cerebrovascular Accident: No Diminished Hearing: No Endocrine: No Gastrointestinal Disorders: Yes (ULCERS, COLITIS) Genitourinary: Yes Hepatitis: Yes (C) Hypertension: Yes Immune Disorder: No Implanted Vascular Access Dvce: No Kidney Stones: Yes Musculoskeletal: Yes Neurologic: Yes Psychiatric: Yes Reproductive: Yes (per pt-told at age 20 he was infertile d/t Meth use but has child ) Respiratory: Yes Immunizations Current: Yes Migraines: Yes Sleep Apnea: No Ulcer: Yes (UPPER AND LOWER GI BLEEDS ) Past Surgical History Abdominal Surgery: Yes (GI study for ulcers) Cardiac Surgery: No Ear Surgery: No Endocrine Surgery: No Eye Surgery: No Genitourinary Surgery: No Gynecologic Surgery: No Hysterectomy: No Oral Surgery: Yes ([place] Tooth pulled in 2011) Thoracic Surgery: No Other Surgery: Yes Social History Alcohol Use: No Tobacco Use: Yes (3-4 pd) Substance Use: No Allergies-Medications (Allergen,Severity, Reaction): Coded Allergies: penicillin G (Unverified Allergy, Severe, Anaphylaxis, 05/24/17) ziprasidone (Unverified Allergy, Severe, Anaphylaxis, 05/24/17) codeine (Unverified Allergy, Intermediate, ITCHING, 05/24/17) tramadol (Unverified Allergy, Intermediate, GI UPSET, 05/24/17) enoxaparin (Unverified Allergy, Mild, 05/24/17) heparin (porcine) (Unverified Allergy, Mild, 05/24/17) levofloxacin (Unverified Allergy, Unknown, 05/24/17) prochlorperazine (Unverified Allergy, Unknown, rash, 05/24/17) Comments List of his allergies reviewed from the nursing note. Reported Meds & Prescriptions Reported Meds & Active Scripts Active Topamax (Topiramate) 25 Mg Tab 25 Mg PO BID Ventolin Hfa 18 GM Inh (Albuterol Sulfate) 90 Mcg/Act Aer 2 Puff INH Q4-6H PRN Reported Topamax (Topiramate) 25 Mg Tab 25 Mg PO BID Seroquel (Quetiapine Fumarate) 200 Mg Tab 200 Mg PO QID Narrative Medication List of his home medications reviewed from the nursing note. Review of Systems Except as stated in HPI: all other systems reviewed are Neg Physical Exam Narrative GENERAL: Awake, alert, moderate distress SKIN: Focused skin assessment warm/dry. HEAD: Atraumatic. Normocephalic. EYES: Pupils equal and round. No scleral icterus. No injection or drainage. ENT: No nasal bleeding or discharge. Mucous membranes pink and moist. NECK: Trachea midline. No JVD. CARDIOVASCULAR: Regular rate and rhythm. No murmur appreciated. RESPIRATORY: No accessory muscle use. Clear to auscultation. Breath sounds equal bilaterally. GASTROINTESTINAL: Abdomen soft, non-tender, nondistended. Hepatic and splenic margins not palpable. MUSCULOSKELETAL: No obvious deformities. No clubbing. No cyanosis. No edema. NEUROLOGICAL: Awake and alert. No obvious cranial nerve deficits. Motor grossly within normal limits. Normal speech. PSYCHIATRIC: Appropriate mood and affect; insight and judgment normal. Data Data Last Documented VS Vital Signs Date Time Temp Pulse Resp B/P (MAP) Pulse Ox O2 Delivery O2 Flow Rate FiO2 05/26/17 11:26 98.5 90 18 130/67 (88) 98 05/26/17 09:49 Room Air Orders Orders Chest, Single Ap (05/26/17 08:41) Ecg Monitoring (05/26/17 08:41) Iv Access Insert/Monitor (05/26/17 08:41) Oximetry (05/26/17 08:41) Oxygen Administration (05/26/17 08:41) Albuterol Neb (Albuterol Neb) (05/26/17 08:45) Sodium Chloride 0.9% Flush (Ns Flush) (05/26/17 08:45) Complete Blood Count With Diff (05/26/17 08:41) Basic Metabolic Panel (Bmp) (05/26/17 08:41) Sodium Chlor 0.9% 1000 Ml Inj (Ns 1000 M (05/26/17 08:45) Group A Rapid Strep Screen (05/26/17 09:51) Strep Culture (Group A) (05/26/17 09:54) Labs Laboratory Tests Test 05/26/17 08:40 White Blood Count 14.2 TH/MM3 Red Blood Count 4.77 MIL/MM3 Hemoglobin 14.7 GM/DL Hematocrit 43.1 % Mean Corpuscular Volume 90.4 FL Mean Corpuscular Hemoglobin 30.8 PG Mean Corpuscular Hemoglobin Concent 34.1 % Red Cell Distribution Width 13.0 % Platelet Count 247 TH/MM3 Mean Platelet Volume 8.0 FL Neutrophils (%) (Auto) 62.3 % Lymphocytes (%) (Auto) 24.5 % Monocytes (%) (Auto) 7.3 % Eosinophils (%) (Auto) 5.3 % Basophils (%) (Auto) 0.6 % Neutrophils # (Auto) 8.8 TH/MM3 Lymphocytes # (Auto) 3.5 TH/MM3 Monocytes # (Auto) 1.0 TH/MM3 Eosinophils # (Auto) 0.8 TH/MM3 Basophils # (Auto) 0.1 TH/MM3 CBC Comment DIFF FINAL Differential Comment Blood Urea Nitrogen 4 MG/DL Creatinine 0.87 MG/DL Random Glucose 86 MG/DL Calcium Level 8.8 MG/DL Sodium Level 143 MEQ/L Potassium Level 3.9 MEQ/L Chloride Level 110 MEQ/L Carbon Dioxide Level 25.3 MEQ/L Anion Gap 8 MEQ/L Estimat Glomerular Filtration Rate 107 ML/MIN MDM Medical Decision Making Medical Screen Exam Complete: Yes Emergency Medical Condition: Yes Medical Record Reviewed: Yes Differential Diagnosis Viral illness, pneumonia Narrative Course 9:42 AM blood test results of back. Patient has some leukocytosis but chemistries within normal limits. I gave him 2 albuterol nebulizers and a liter of IV fluid bolus. He will be discharged home. His prescriptions will be refilled as well. Procedures EKG Prior to Arrival: No Diagnosis Primary Impression: Viral illness Additional Impression: Noncompliance with medication regimen Referrals: Primary Care Physician 1 week Additional Instructions: Please return to the ER if the condition worsens or any other new concerns. Otherwise follow-up with your primary care. Take the inhaler as needed for asthma exacerbation. Please take his seizure medications like is supposed to. He should not be driving due to your seizure disorder and recent episode of seizure. Med/Other Pt SpecificInfo: Prescription(s) given Scripts Topiramate (Topamax) 25 Mg Tab 25 MG PO BID for Control Seizures, #60 TAB 0 Refills Prov: Shanice Swenson MD 05/26/17 Albuterol 18 GM Inh (Ventolin Hfa 18 GM Inh) 90 Mcg/Act Aer 2 PUFF INH Q4-6H Y for SHORTNESS OF BREATH, #1 INHALER 0 Refills Prov: Shanice Swenson MD 05/26/17 Disposition: 01 DISCHARGE HOME Condition: Stable Shanice Swenson MD May 26, 2017 08:33
[2017-05-26 08:34] VITALS: BP 116/70; PULSE 88; RESP 18; O2SAT 100
[2017-05-26] MEDS ORDERED: SODIUM CHLOR 0.9% 1000 ML INJ 1,000 ML IV ONE (08:45)
[2017-05-26] MEDS ORDERED: SODIUM CHLORIDE 0.9% FLUSH 10 ML FLUSH IVF PRN (08:45)
[2017-05-26] MEDS: RESP: ALBUTEROL 2.5 MG/3 ML NEB (SCH) INH ×2 (08:51→08:52)
[2017-05-26 09:00] LABS: AUTOMATED NEUTROPHIL # 8.8 TH/MM3 (1.8-7.7); BASOPHIL # 0.1 TH/MM3 (0-0.2); BASOPHIL % 0.6 % (0.0-2.0); EOSINOPHIL # 0.8 TH/MM3 (0-0.4); EOSINOPHIL % 5.3 % (0.0-4.0); HEMATOCRIT 43.1 % (39.0-51.0); HEMO FLAGS DIFF FINAL; LYMPH % 24.5 % (9.0-44.0); LYMPHOCYTE # 3.5 TH/MM3 (1.0-4.8); MEAN CELL VOLUME 90.4 FL (80.0-100.0); MEAN CORPUSCULAR HEMOGLOBIN 30.8 PG (27.0-34.0); MEAN CORPUSCULAR HGB CONC 34.1 % (32.0-36.0); MONO % 7.3 % (0.0-8.0); NEUT % 62.3 % (16.0-70.0); PLATELET COUNT 247 TH/MM3 (150-450); RED BLOOD COUNT 4.77 MIL/MM3 (4.50-5.90); WHITE BLOOD COUNT 14.2 TH/MM3 (4.0-11.0)
--- NOTE | 2017-05-26 09:12 | RADRPT ---
EXAM DATE/TIME: 05/26/2017 08:56 [facility] COMPARISON: CHEST SINGLE AP, January 20, 2015, 21:51. INDICATIONS : Fever, chest pain MEDICAL HISTORY : Hepatitis C. asthma, ulcers, colitis, migraines, polysubstance use SURGICAL HISTORY : None. ENCOUNTER: Initial ACUITY: 2 days PAIN SCORE: 9/10 LOCATION: Bilateral chest FINDINGS: A single view of the chest demonstrates the lungs to be symmetrically aerated without evidence of mas s, infiltrate or effusion. The cardiomediastinal contours are unremarkable. Osseous structures are intact. CONCLUSION: No acute disease. No significant change has occurred. Eric Sandoval MD on May 26, 2017 at 9:02 Board Certified Radiologist. This report was verified electronically.
[2017-05-26 09:14] LABS: BICARBONATE 25.3 MEQ/L (21.0-32.0); POTASSIUM 3.9 MEQ/L (3.5-5.1)
[2017-05-26] MEDS ORDERED: VENTAER INH (09:45)
[2017-05-26] MEDS ORDERED: TOPA25TA8 PO (09:46)
[2017-05-26 09:49] VITALS: BP 114/73; PULSE 103; RESP 16; TEMP 98.6; O2SAT 100
[2017-05-26 11:26] VITALS: BP 130/67; TEMP 98.5
== END 2017-05-26 11:29 | disposition home or self-care (01) ==
LOC: NEPE 08:23
DX: B34.9 Viral infection, unspecified (principal); F31.9 Bipolar disorder, unspecified; J45.909 Unspecified asthma, uncomplicated; I10 Essential (primary) hypertension; F90.9 Attention-deficit hyperactivity disorder, unspecified type; F41.9 Anxiety disorder, unspecified; Z86.19 Personal history of other infectious and parasitic diseases; Z87.442 Personal history of urinary calculi; Z91.14 Patient's other noncompliance with medication regimen
CPT/HCPCS: 71010; 80048; 85025; 87081; 87880; 94640; 94664; 96360; 99285; J7030; J7613

== ENCOUNTER 2017-08-28 01:06 | Inpatient (IN) | payer BC ==
[~2017-08-28] VITALS: Ht 198.1 cm; Wt 62.9 kg
[2017-08-28] VITALS (7 sets, daily range): BP systolic 103–128; BP diastolic 51–74; PULSE 71–112; RESP 16–18; TEMP 97.6–98.4; O2SAT 98–100
[~2017-08-28 01:06] MED LIST changes: -PROZ20CA11 PO; -TOPA25TA8 PO; +TOPI25 PO; +VENTAER INH; -ZOFR4TAB3 SL
[2017-08-28] MEDS ORDERED: SODIUM CHLOR 0.9% 1000 ML INJ 1,000 ML IV ONE (01:41)
[2017-08-28] MEDS ORDERED: SERO200T PO (01:45)
[2017-08-28] MEDS ORDERED: BUSP10TA PO (01:45)
[2017-08-28] MEDS ORDERED: BUPR300T PO (01:46)
--- NOTE | 2017-08-28 02:11 | PD ---
HPI Chief Complaint: Suicide Ideation/Attempt Time Seen by Provider: 01:40 Travel History International Travel<30 days: No Contact w/Intl Traveler<30days: No Traveled to known affect area: No History of Present Illness HPI 27yo M with PMH of drug use, anxiety, bipolar disorder, borderline personality disorder presents to the ED with c/o suicidal ideation. Said he is tired of living and use a can to cut his left wrist which is very superficial and not actively bleeding. Pt also took 8mg of xanax for his anxiety and to hurt himself. Denies any fever, cough, sob, n/v, abdominal pain, focal weakness or numbness, or trauma. PFSH Past Medical History Hx Anticoagulant Therapy: No ADHD: Yes Asthma: Yes (Patient states last attack in November of 2014) Bipolar Disorder: Yes Anxiety: Yes Depression: Yes Heart Rhythm Problems: No High Cholesterol: No Chemotherapy: No Chest Pain: No Congestive Heart Failure: No COPD: No Cerebrovascular Accident: No Diminished Hearing: No Endocrine: No Gastrointestinal Disorders: Yes (ULCERS, COLITIS) Genitourinary: Yes Hepatitis: Yes (C) Hypertension: Yes Immune Disorder: No Implanted Vascular Access Dvce: No Kidney Stones: Yes Musculoskeletal: Yes Neurologic: Yes Psychiatric: Yes Reproductive: Yes (per pt-told at age 20 he was infertile d/t Meth use but has child ) Respiratory: Yes Immunizations Current: Yes Migraines: Yes Sleep Apnea: No Ulcer: Yes (UPPER AND LOWER GI BLEEDS ) Tetanus Vaccination: < 5 Years Past Surgical History Abdominal Surgery: Yes (GI study for ulcers) Cardiac Surgery: No Ear Surgery: No Endocrine Surgery: No Eye Surgery: No Genitourinary Surgery: No Gynecologic Surgery: No Hysterectomy: No Oral Surgery: Yes ([place] Tooth pulled in 2011) Thoracic Surgery: No Other Surgery: Yes Social History Alcohol Use: Yes (pint of whiskey) Tobacco Use: Yes (3-4 pd) Substance Use: Yes (marijaunia, 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) Allergies-Medications (Allergen,Severity, Reaction): Coded Allergies: penicillin G (Verified Allergy, Severe, Anaphylaxis, 08/28/17) ziprasidone (Verified Allergy, Severe, Anaphylaxis, 08/28/17) codeine (Verified Allergy, Intermediate, ITCHING, 08/28/17) tramadol (Verified Allergy, Intermediate, GI UPSET, 08/28/17) enoxaparin (Verified Allergy, Mild, 08/28/17) heparin (porcine) (Verified Allergy, Mild, 08/28/17) levofloxacin (Verified Allergy, Unknown, 08/28/17) prochlorperazine (Verified Allergy, Unknown, rash, 08/28/17) Reported Meds & Prescriptions Reported Meds & Active Scripts Active Reported Bupropion HCl ER 24 HR (Bupropion HCl) 300 Mg Tab 300 Mg PO DAILY Buspirone (Buspirone HCl) 10 Mg Tab 10 Mg PO BID Seroquel (Quetiapine Fumarate) 200 Mg Tab 200 Mg PO BID Review of Systems Except as stated in HPI: all other systems reviewed are Neg Physical Exam Narrative GENERAL: 27yo M not in distress. SKIN: Focused skin assessment warm/dry. HEAD: Atraumatic. Normocephalic. EYES: Pupils equal and round. No scleral icterus. No injection or drainage. ENT: No nasal bleeding or discharge. Mucous membranes pink and moist. NECK: Trachea midline. No JVD. CARDIOVASCULAR: Regular rate and rhythm. No murmur appreciated. RESPIRATORY: No accessory muscle use. Clear to auscultation. Breath sounds equal bilaterally. GASTROINTESTINAL: Abdomen soft, non-tender, nondistended. MUSCULOSKELETAL: Left wrist: Very superficial laceration that does not even need sutures. Radial pulse 2+. NEUROLOGICAL: Awake and alert. No obvious cranial nerve deficits. Motor grossly within normal limits. Normal speech. Data Data Last Documented VS Vital Signs Date Time Temp Pulse Resp B/P (MAP) Pulse Ox O2 Delivery O2 Flow Rate FiO2 08/28/17 01:09 98.4 112 16 128/72 (90) 98 Room Air Orders Orders Electrocardiogram (08/28/17 01:41) Complete Blood Count With Diff (08/28/17 01:41) Comprehensive Metabolic Panel (08/28/17 01:41) Prothrombin Time / Inr (Pt) (08/28/17 01:41) Act Partial Throm Time (Ptt) (08/28/17 01:41) Psych Screen (08/28/17 01:41) Sodium Chlor 0.9% 1000 Ml Inj (Ns 1000 M (08/28/17 01:41) Drug Screen, Random Urine (08/28/17 01:41) Alcohol (Ethanol) (08/28/17 01:41) Salicylates (Aspirin) (08/28/17 01:41) Tylenol (Acetaminophen) (08/28/17 01:41) Labs Laboratory Tests Test 08/28/17 01:59 White Blood Count 13.0 TH/MM3 Red Blood Count 4.33 MIL/MM3 Hemoglobin 13.3 GM/DL Hematocrit 39.1 % Mean Corpuscular Volume 90.5 FL Mean Corpuscular Hemoglobin 30.7 PG Mean Corpuscular Hemoglobin Concent 34.0 % Red Cell Distribution Width 13.8 % Platelet Count 325 TH/MM3 Mean Platelet Volume 8.5 FL Neutrophils (%) (Auto) 58.2 % Lymphocytes (%) (Auto) 30.1 % Monocytes (%) (Auto) 8.1 % Eosinophils (%) (Auto) 2.9 % Basophils (%) (Auto) 0.7 % Neutrophils # (Auto) 7.6 TH/MM3 Lymphocytes # (Auto) 3.9 TH/MM3 Monocytes # (Auto) 1.0 TH/MM3 Eosinophils # (Auto) 0.4 TH/MM3 Basophils # (Auto) 0.1 TH/MM3 CBC Comment DIFF FINAL Differential Comment Prothrombin Time 9.8 SEC Prothromb Time International Ratio 1.0 RATIO Activated Partial Thromboplast Time 27.3 SEC Blood Urea Nitrogen 10 MG/DL Creatinine 0.79 MG/DL Random Glucose 93 MG/DL Total Protein 7.0 GM/DL Albumin 3.5 GM/DL Calcium Level 9.1 MG/DL Alkaline Phosphatase 78 U/L Aspartate Amino Transf (AST/SGOT) 21 U/L Alanine Aminotransferase (ALT/SGPT) 70 U/L Total Bilirubin 0.4 MG/DL Sodium Level 140 MEQ/L Potassium Level 3.9 MEQ/L Chloride Level 107 MEQ/L Carbon Dioxide Level 26.3 MEQ/L Anion Gap 7 MEQ/L Estimat Glomerular Filtration Rate 120 ML/MIN Salicylates Level 2.0 MG/DL Acetaminophen Level LESS THAN 2.0 MCG/ML Ethyl Alcohol Level LESS THAN 3 MG/DL MDM Medical Decision Making Medical Screen Exam Complete: Yes Emergency Medical Condition: Yes Differential Diagnosis Drug use vs. bipolar disorder vs. suicidal ideation Narrative Course 27yo M here stating he wants to hurt himself and he needs help. Took xanax prior to coming but is awake and answers questions. Labs reviewed, mild leukocytosis at 13,000. CMP unremarkable. Acetaminophen, alcohol and salicylate negative. Pt given NS IVF. Urine drug screen pending. Pt is medically clear for psych evaluation. Diagnosis Primary Impression: Suicidal ideation Dorie Cruz DO Aug 28, 2017 02:11
[2017-08-28 02:25] LABS: AUTOMATED NEUTROPHIL # 7.6 TH/MM3 (1.8-7.7); BASOPHIL # 0.1 TH/MM3 (0-0.2); BASOPHIL % 0.7 % (0.0-2.0); EOSINOPHIL # 0.4 TH/MM3 (0-0.4); EOSINOPHIL % 2.9 % (0.0-4.0); HEMATOCRIT 39.1 % (39.0-51.0); HEMOGLOBIN 13.3 GM/DL (13.0-17.0); LYMPH % 30.1 % (9.0-44.0); LYMPHOCYTE # 3.9 TH/MM3 (1.0-4.8); MEAN CELL VOLUME 90.5 FL (80.0-100.0); MEAN CORPUSCULAR HEMOGLOBIN 30.7 PG (27.0-34.0); MEAN PLATELET VOLUME 8.5 FL (7.0-11.0); MONO % 8.1 % (0.0-8.0); NEUT % 58.2 % (16.0-70.0); PLATELET COUNT 325 TH/MM3 (150-450); RED BLOOD COUNT 4.33 MIL/MM3 (4.50-5.90); RED CELL DISTRIBUTION WIDTH 13.8 % (11.6-17.2)
[2017-08-28 02:42] LABS: PROTHROMBIN TIME - PATIENT 9.8 SEC (9.8-11.6)
[2017-08-28 02:46] LABS: ALBUMIN 3.5 GM/DL (3.4-5.0); AST (GOT) 21 U/L (15-37); BICARBONATE 26.3 MEQ/L (21.0-32.0); BLOOD UREA NITROGEN 10 MG/DL (7-18); CALCIUM 9.1 MG/DL (8.5-10.1); CHLORIDE 107 MEQ/L (98-107); CREATININE 0.79 MG/DL (0.60-1.30); GLOMERULAR FILTRATION RATE 120 ML/MIN (>89); GLUCOSE,RANDOM 93 MG/DL (74-106); SODIUM (NA) 140 MEQ/L (136-145)
[2017-08-28 02:49] LABS: ALKALINE PHOSPHATASE 78 U/L (45-117); ALT (GPT) 70 U/L (12-78); TOTAL BILIRUBIN ADULT 0.4 MG/DL (0.2-1.0)
[2017-08-28 02:51] LABS: ACETAMINOPHEN LESS THAN 2.0 MCG/ML (10.0-30.0)
[2017-08-28] MEDS ORDERED: BACITRACIN TOP OINT 15 GM TUBE TOPICAL ONE (04:30)
[2017-08-28] MEDS ORDERED: diphenhydrAMINE HCL 50 MG CAP PO PRN (15:15)
[2017-08-28] MEDS ORDERED: LORazepam 2 MG/ML VIAL IV PUSH PRN ×4 (15:15)
[2017-08-28] MEDS ORDERED: ACETAMINOPHEN 325 MG TAB PO PRN (15:15)
[2017-08-28] MEDS ORDERED: MAGNESIUM HYDROXIDE SUSP 30 ML CUP PO PRN (15:15)
[2017-08-28] MEDS ORDERED: ALUMINUM/MAGNESIUM/SIMETH 30 ML CUP PO PRN (15:15)
[2017-08-28] MEDS ORDERED: LORazepam 2 MG TAB PO PRN (15:15)
[2017-08-28] MEDS ORDERED: FLUMAZENIL 0.5 MG/5 ML VIAL IV PUSH PRN (15:15)
--- NOTE | 2017-08-28 15:29 | HHI.HP ---
Provisional Diagnosis Admission Date [place] I. Adjustment disorder with depressed mood f 43.10 benzodiazepine abuse Certification of Person's Competence To Provide Express and Informed Consent I have personally examined Nabeel Gaytan , a person being served at [facility] on, Aug 28, 2017 15:20. Express and informed consent means consent voluntarily given in writing, by a competent person, after sufficient explanation and disclosure of the subject matter involved to enable the person to make a knowing and willful decision without any element of force, fraud, deceit, duress, or other form of constraint or coercion. This person is 18 years of age or older, is not now known to be incompetent to consent to treatment with a guardian advocate, and does not have a health care surrogate or proxy currently making medical treatment decisions. I have found this person to be one of the following: []xx Competent to provide express and informed consent, as defined above, for voluntary admission to this facility and is competent to provide express and informed consent for treatment. He/she has the consistent capacity to make well reasoned, willful, and knowing decisions concerning his or her medical or mental health treatment. The person fully and consistently understands the purpose of the admission for examination/placement and is fully capable of personally exercising all rights assured under [place] Incompetent to provide express and informed consent to voluntary admission, and this is incompetent to provide express and informed consent to treatment. The person must be transferred to involuntary status and a petition for a guardian advocate filed with the Circuit Court. [] Refusing to provide express and informed consent to voluntary admission but is competent to provide express and informed consent for treatment. The person must be discharged or transferred to involuntary status. Form shall be completed within 24 hours of a person's arrival at the receiving facility and filed in the clinical record of each person: 1. Admitted on a voluntary basis 2. Permitted to provide express and informed consent to his/her own treatment 3. Allowed to transfer from involuntary to voluntary status 4. Prior to permitting a person to consent to his or her own treatment after having been previously found incompetent to consent to treatment. History of Present Illness Capacity: Has Capacity Psych Chief Complaint: depression benzodiazepine overdose suicidality HPI Patient is a 27-year-old slender thin white male comes voluntarily to the emergency department history of Xanax overdose with suicide attempt and small lacerations to both wrists. Patient seen screened in the ED urine toxicology positive for benzodiazepines and marijuana. At the present time patient somewhat sedated in his room but arousable to alert. Stating he is depressed because he discovered his in bed with another man. It appears she is been for 45 years. Is been somewhat of a chaotic relationship. They're getting a divorce. Patient is a history of depression he has been hospitalized here within the past year. This history of substance abuse also primarily benzodiazepines. Patient does acknowledge suicidal ideation intent at the present time. However of interest patient states she is planning on leaving for [facility] run September 01 to reunite with his old "león" will be buying him a bus ticket. However at the present time I feel he does meet criteria for brief inpatient psychiatric stay. He has been on Wellbutrin and Seroquel at past with fairly good results. We will admit him to the 2600 unit we'll start him on Wellbutrin XL acknowledges 50 mg daily and Seroquel 20 mg at at bedtime. Because of his chronic use of benzodiazepines also place him on the cine protocol. Review of Systems Constitutional: DENIES: Diaphoretic episodes, Fatigue, Fever, Weight gain, Weight loss, Chills, Dizziness, Change in appetite, Night Sweats Endocrine: DENIES: Heat/cold intolerance, Polydipsia, Polyuria, Polyphagia Eyes: DENIES: Blurred vision, Diplopia, Eye inflammation, Eye pain, Vision loss , Photosensitivity, Double Vision Ears, nose, mouth, throat: DENIES: Tinnitus, Hearing loss, Vertigo, Nasal discharge, Oral lesions, Throat pain, Hoarseness, Ear Pain, Running Nose, Epistaxis, Sinus Pain, Toothache, Odynophagia Respiratory: DENIES: Apneas, Cough, Snoring, Wheezing, Hemoptysis, Sputum production, Shortness of breath Cardiovascular: DENIES: Chest pain, Palpitations, Syncope, Dyspnea on Exertion , PND, Lower Extremity Edema, Orthopnea, Claudication Gastrointestinal: DENIES: Abdominal pain, Black stools, Bloody stools, Constipation, Diarrhea, Nausea, Vomiting, Difficulty Swallowing, Anorexia Genitourinary: DENIES: Sexual dysfunction, Urinary frequency, Urinary incontinence, Urgency, Hematuria, Dysuria, Nocturia, Penile Discharge, Testicular Pain, Testicular Swelling Musculoskeletal: DENIES: Joint pain, Muscle aches, Stiffness, Joint Swelling, Back pain, Neck pain Integumentary: DENIES: Abnormal pigmentation, Nail changes, Pruritus, Rash Hematologic/lymphatic: DENIES: Bruising, Lymphadenopathy Immunologic/allergic: DENIES: Eczema, Urticaria Neurologic: DENIES: Abnormal gait, Headache, Localized weakness, Paresthesias, Seizures, Speech Problems, Tremor, Poor Balance Psychiatric: COMPLAINS OF: Depression, Suicidal Ideation Past Psych History Psychological trauma history Patient denies Violence risk - others (6 mos) Low Violence risk - self (6 mos) Patient self-inflicted abrasions to both wrists him overdose benzodiazepine Substance Abuse History Drugs/Alcohol past 12 months Active benzodiazepine abuser and marijuana abuser Past Family Social History Coded Allergies: penicillin G (Verified Allergy, Severe, Anaphylaxis, 08/28/17) ziprasidone (Verified Allergy, Severe, Anaphylaxis, 08/28/17) codeine (Verified Allergy, Intermediate, ITCHING, 08/28/17) tramadol (Verified Allergy, Intermediate, GI UPSET, 08/28/17) enoxaparin (Verified Allergy, Mild, 08/28/17) heparin (porcine) (Verified Allergy, Mild, 08/28/17) levofloxacin (Verified Allergy, Unknown, 08/28/17) prochlorperazine (Verified Allergy, Unknown, rash, 08/28/17) Reported Medications Bupropion HCl ER 24 HR (Bupropion HCl ER 24 HR) 300 Mg Tab, 300 MG PO DAILY for Control Depression, TAB 0 Refills 08/28/17 Buspirone (Buspirone) 10 Mg Tab, 10 MG PO BID for Anxiety, TAB 0 Refills 08/28/17 Quetiapine (Seroquel) 200 Mg Tab, 200 MG PO BID, #60 TAB 0 Refills 08/28/17 Discontinued Reported Medications Topiramate (Topamax) 25 Mg Tab, 25 MG PO BID for Control Seizures, #600 TAB 0 Refills 05/24/17 Quetiapine (Seroquel) 200 Mg Tab, 200 MG PO QID, #60 TAB 0 Refills 04/17/17 Discontinued Scripts Topiramate (Topamax) 25 Mg Tab, 25 MG PO BID for Control Seizures, #60 TAB 0 Refills Prov:Shanice Swenson MD 05/26/17 Albuterol 18 GM Inh (Ventolin Hfa 18 GM Inh) 90 Mcg/Act Aer, 2 PUFF INH Q4-6H Y for SHORTNESS OF BREATH, #1 INHALER 0 Refills Prov:Shanice Swenson MD 05/26/17 Family Psych History Patient denies Social History Patient Caddick marriage supposedly getting a divorce was willingness to his 's sleeping with another man Patient's Strengths (min. 2) Patient verbal labile axis health care Physical Exam Patient seen screen in ED exam reviewed and agreed with at the present time patient somewhat stated per nursing quietly in his room on J pod. Is in no acute distress, he is in no respiratory distress, no complaints of abdominal pain. Moves all 4 extremities without difficulty no abnormal motor movements noted Vital Signs Vital Signs Date Time Temp Pulse Resp B/P (MAP) Pulse Ox O2 Delivery O2 Flow Rate FiO2 08/28/17 11:25 74 18 103/58 (73) 98 Room Air 08/28/17 06:46 98.1 Lab Results Test 08/28/17 01:59 08/28/17 04:50 White Blood Count 13.0 TH/MM3 Red Blood Count 4.33 MIL/MM3 Hemoglobin 13.3 GM/DL Hematocrit 39.1 % Mean Corpuscular Volume 90.5 FL Mean Corpuscular Hemoglobin 30.7 PG Mean Corpuscular Hemoglobin Concent 34.0 % Red Cell Distribution Width 13.8 % Platelet Count 325 TH/MM3 Mean Platelet Volume 8.5 FL Neutrophils (%) (Auto) 58.2 % Lymphocytes (%) (Auto) 30.1 % Monocytes (%) (Auto) 8.1 % Eosinophils (%) (Auto) 2.9 % Basophils (%) (Auto) 0.7 % Neutrophils # (Auto) 7.6 TH/MM3 Lymphocytes # (Auto) 3.9 TH/MM3 Monocytes # (Auto) 1.0 TH/MM3 Eosinophils # (Auto) 0.4 TH/MM3 Basophils # (Auto) 0.1 TH/MM3 CBC Comment DIFF FINAL Differential Comment Prothrombin Time 9.8 SEC Prothromb Time International Ratio 1.0 RATIO Activated Partial Thromboplast Time 27.3 SEC Blood Urea Nitrogen 10 MG/DL Creatinine 0.79 MG/DL Random Glucose 93 MG/DL Total Protein 7.0 GM/DL Albumin 3.5 GM/DL Calcium Level 9.1 MG/DL Alkaline Phosphatase 78 U/L Aspartate Amino Transf (AST/SGOT) 21 U/L Alanine Aminotransferase (ALT/SGPT) 70 U/L Total Bilirubin 0.4 MG/DL Sodium Level 140 MEQ/L Potassium Level 3.9 MEQ/L Chloride Level 107 MEQ/L Carbon Dioxide Level 26.3 MEQ/L Anion Gap 7 MEQ/L Estimat Glomerular Filtration Rate 120 ML/MIN Salicylates Level 2.0 MG/DL Acetaminophen Level LESS THAN 2.0 MCG/ML Ethyl Alcohol Level LESS THAN 3 MG/DL Urine Opiates Screen NEG Urine Barbiturates Screen NEG Urine Amphetamines Screen NEG Urine Benzodiazepines Screen POS Urine Cocaine Screen NEG Urine Cannabinoids Screen POS Mental Status Examination Appearance: Appropriate Consciousness: Lethargic Orientation: Person, Place, Date/Time, Situation Motor Activity: Normal gait Speech: Hesitant, Slow Language: Adequate Fund of Knowledge: Adequate Attention and Concentration: Other (fair) Memory: Unremarkable Mood: Sad, Irritable Affect: Other (decreased range increase intensity) Thought Process & Associations: Linear Thought Content: Appropriate, Bizarre thinking Hallucination Type: None Delusion Type: None Suicidal Ideation: Yes Suicidal Plan: Yes Suicidal Intention: Yes Homicidal Ideation: No Homicidal Plan: No Homicidal Intention: No Insight: Poor Judgment: Poor Assessment & Plan Problem List: (1) Benzodiazepine abuse ICD Codes: F13.10 - Sedative, hypnotic or anxiolytic abuse, uncomplicated (2) Adjustment disorder with depressed mood ICD Codes: F43.21 - Adjustment disorder with depressed mood Status: Acute Assessment & Plan Estimated LOS: days this time patient does meet criteria for inpatient psychiatric hospitalization on a voluntary basis. We'll place him on theciwa protocol, will start on Wellbutrin and Seroquel. Office be short stay and he can be discharged to [facility] to the [place] from [facility] with his old "fianc" Discharge Planning See above Request HC Surrog/Guard Advoc?: No Eugene Oropeza MD Aug 28, 2017 15:29
[2017-08-28] MEDS: buPROPion HCL 150 MG SUSTAINED RELEASE TAB PO SCH (17:30)
[2017-08-28] MEDS: LORazepam 1 MG TAB PO PRN (17:31)
[2017-08-28] MEDS ORDERED: QUEtiapine FUMARATE 200 MG TAB PO SCH (21:00)
--- NOTE | 2017-08-28 21:27 | EKG ---
Date Performed: 08/28/2017 Time Performed: 01:33:15 PTAGE: 27 years EKG: Sinus rhythm BORDERLINE RIGHT AXIS DEVIATION EARLY REPOLARIZATION BORDERLINE ECG PREVIOUS TRACING : 04/30/2017 20.00 Compared to prior tracing no significant change DOCTOR: Fariha Manning Interpretating Date/Time 08/28/2017 21:26:31
[2017-08-28] MEDS: hydrOXYzine HCL 50 MG TAB PO PRN (21:38)
[2017-08-29 05:32] VITALS: BP 104/59; PULSE 72; RESP 18; TEMP 97.5; O2SAT 96
[2017-08-29] MEDS: buPROPion HCL 150 MG SUSTAINED RELEASE TAB PO SCH ×2 (08:31→21:42)
[2017-08-29] MEDS: NICOTINE 21 MG/24 HR PATCH T-DERMAL SCH (08:31)
[2017-08-29] MEDS: hydrOXYzine HCL 50 MG TAB PO PRN ×2 (08:36→15:31)
--- NOTE | 2017-08-29 11:15 | HHI.PYPN ---
Subjective Chief Complaint: depression benzodiazepine overdose suicidality Remarks Patient seen in day room with nurse Raffaele, chart reviewed, patient compliant medicine. While patient complains withdrawal symptoms objectively he appears somewhat sedated he appears somewhat drowsy his speech is slow and quite deliberate. He complains of poor sleep. Continues to discuss dosages of his medications per his prior clinician. Will increase Wellbutrin to 150 mg twice a day will increase the Seroquel to 300 mg at at bedtime manic BuSpar 10 mg twice a day. Patient is planning and discharge in 2 days talking with his girlfriend in [facility] [place] bus ticket from here locally to [place]. He does denies suicidality homicidality at this time Review of Systems Except as stated in HPI: all other systems reviewed are Neg Mental Status Examination Appearance: Appropriate Consciousness: Lethargic Orientation: Person, Place, Date/Time, Situation Motor Activity: Normal gait Speech: Hesitant, Slow Language: Adequate Fund of Knowledge: Adequate Attention and Concentration: Other (fair) Memory: Unremarkable Mood: Sad, Irritable Affect: Other (decreased range increase intensity) Thought Process & Associations: Linear Thought Content: Appropriate, Bizarre thinking Hallucination Type: None Delusion Type: None Suicidal Ideation: Yes Suicidal Plan: Yes Suicidal Intention: Yes Homicidal Ideation: No Homicidal Plan: No Homicidal Intention: No Insight: Poor Judgment: Poor Results Vitals/IOs Vital Signs Date Time Temp Pulse Resp B/P (MAP) Pulse Ox O2 Delivery O2 Flow Rate FiO2 08/29/17 05:32 97.5 72 18 104/59 (74) 96 08/28/17 15:47 Room Air Intake and Output 08/29/17 08/29/17 08/30/17 08:00 16:00 00:00 Intake Total 240 ml Balance 240 ml Assessment & Plan Problem List: (1) Benzodiazepine abuse ICD Codes: F13.10 - Sedative, hypnotic or anxiolytic abuse, uncomplicated (2) Adjustment disorder with depressed mood ICD Codes: F43.21 - Adjustment disorder with depressed mood Status: Acute Assessment & Plan Estimated LOS: days patient is somewhat improved today though still showing some degree of manipulation related to medication. Today denies suicidality or voices. Still is planning on relocating to [facility] be with his ex- "león" on 09/01 Justification for Cont. Inpt. This time patient would decompensated placed a lower level of care Discharge Planning Possible relocation to spring from [place] with his ex-fianc Request HC Surrog/Guard Advoc?: No Eugene Oropeza MD Aug 29, 2017 11:15
[2017-08-29 18:17] VITALS: BP 113/55; PULSE 88; RESP 18; TEMP 97.9; O2SAT 98
[2017-08-29] MEDS: QUEtiapine FUMARATE 300 MG TAB PO SCH (21:42)
[2017-08-29] MEDS: busPIRone HCL 10 MG TAB PO SCH (21:42)
[2017-08-30 05:49] VITALS: BP 107/53; PULSE 17; RESP 17; TEMP 97.5
[2017-08-30] MEDS: NICOTINE 21 MG/24 HR PATCH T-DERMAL SCH (09:21)
[2017-08-30] MEDS: busPIRone HCL 10 MG TAB PO SCH ×2 (09:21→20:40)
[2017-08-30] MEDS: buPROPion HCL 150 MG SUSTAINED RELEASE TAB PO SCH ×2 (09:21→20:40)
--- NOTE | 2017-08-30 09:24 | PD.TTN ---
Patient Problems 1. Discharge planning 2. Medication compliance 3. Knowledge deficit 4. Lack of coping skills Progress Toward Goals Provider Present: Dr. Kelli Oropeza Provider Input: 08/30/17 - Dr. Oropeza reported the patient made superficial scratches to his wrist and will be discharged today. Psychiatric Counselors Present: JUAN Pena Psych Therapist Input: 08/30/17 - Counselor will plan patient's discharge today. Group Spec/RT/OT/MORALES Present: ANDREW Tate Group Spec/RT/OT/MORALES Input: 08/30/17 - patient is not attending groups. Documentation Scribe: JUAN Pena Date Resolved: Aug 30, 2017 Emily King Aug 30, 2017 09:24
[2017-08-30] MEDS: LORazepam 1 MG TAB PO PRN ×2 (09:32→21:13)
--- NOTE | 2017-08-30 12:57 | HHI.PYPN ---
Subjective Chief Complaint: depression benzodiazepine overdose suicidality Remarks Patient seen in [place] with nurse Lisa, patient shows [place] that he has for [employer] bus trip to [facility] leaving in about 6 AM on 09/01. Patient is calm cooperative and pleasant with this. Is excited about going to location hopefully to maintain sobriety. He does wish to be discharged late tomorrow afternoon stating he will make his own way through the night to be certain to be at the bus depot early on the . We'll give patient a month supply of his scheduled medications. Patient to follow-up with mental health services [facility] area Review of Systems Except as stated in HPI: all other systems reviewed are Neg Mental Status Examination Appearance: Appropriate Consciousness: Lethargic Orientation: Person, Place, Date/Time, Situation Motor Activity: Normal gait Speech: Hesitant, Slow Language: Adequate Fund of Knowledge: Adequate Attention and Concentration: Other (fair) Memory: Unremarkable Mood: Sad, Irritable Affect: Other (decreased range increase intensity) Thought Process & Associations: Linear Thought Content: Appropriate, Bizarre thinking Hallucination Type: None Delusion Type: None Suicidal Ideation: Yes Suicidal Plan: Yes Suicidal Intention: Yes Homicidal Ideation: No Homicidal Plan: No Homicidal Intention: No Insight: Poor Judgment: Poor Results Vitals/IOs Vital Signs Date Time Temp Pulse Resp B/P (MAP) Pulse Ox O2 Delivery O2 Flow Rate FiO2 08/30/17 05:49 97.5 17 17 107/53 (71) 08/29/17 18:17 98 08/28/17 15:47 Room Air Assessment & Plan Problem List: (1) Benzodiazepine abuse ICD Codes: F13.10 - Sedative, hypnotic or anxiolytic abuse, uncomplicated (2) Adjustment disorder with depressed mood ICD Codes: F43.21 - Adjustment disorder with depressed mood Status: Acute Assessment & Plan Estimated LOS: days patient improving, now denies suicidality homicidality voices or visions. Is making preparations to relocate to [facility] via bus on 09/01 Justification for Cont. Inpt. Patient to be discharge tomorrow afternoon to himself he will make on arrangements locally until getting on the bus in the early a.m. 09/01. Patient be given 1 month supply of his medications Discharge Planning Patient discharge tomorrow in the afternoon to himself. To be given 1 month supply medication. Eating he will care for himself until he gets on the bus in the early a.m. 1228, relocating to [facility] Request HC Surrog/Guard Advoc?: No Eugene Oropeza MD Aug 30, 2017 12:57
[2017-08-30] MEDS ORDERED: BUSP10TA PO (13:26)
[2017-08-30] MEDS ORDERED: QUET1TAB10 PO (13:26)
[2017-08-30] MEDS ORDERED: BUPR300T PO (13:26)
[2017-08-30 18:00] VITALS: BP 140/63; PULSE 84; RESP 16; TEMP 98.6; O2SAT 97
[2017-08-30] MEDS: QUEtiapine FUMARATE 300 MG TAB PO SCH (20:40)
[2017-08-31 05:53] VITALS: BP 115/59; PULSE 85; RESP 18; TEMP 98.1; O2SAT 98
[2017-08-31] MEDS: buPROPion HCL 150 MG SUSTAINED RELEASE TAB PO SCH (08:45)
[2017-08-31] MEDS: busPIRone HCL 10 MG TAB PO SCH (08:45)
[2017-08-31] MEDS: NICOTINE 21 MG/24 HR PATCH T-DERMAL SCH (08:46)
--- NOTE | 2017-08-31 12:47 | HHI.DS ---
Psychiatry Discharge Summary Inpatient Psychiatric care?: Yes Advance Directive: No Reason Not Provided: Provided information to patient Mental Health AdvanceDirective: No Health Care Proxy: No Admission Admission Date Aug 28, 2017 at 15:19 Admission Diagnosis: (1) Adjustment disorder with depressed mood ICD Code: F43.21 - Adjustment disorder with depressed mood (2) Benzodiazepine abuse ICD Code: F13.10 - Sedative, hypnotic or anxiolytic abuse, uncomplicated Brief History Patient is a 27-year-old slender thin white male comes voluntarily to the emergency department history of Xanax overdose with suicide attempt and small lacerations to both wrists. Patient seen screened in the ED urine toxicology positive for benzodiazepines and marijuana. At the present time patient somewhat sedated in his room but arousable to alert. Stating he is depressed because he discovered his in bed with another man. It appears she is been for 45 years. Is been somewhat of a chaotic relationship. They're getting a divorce. Patient is a history of depression he has been hospitalized here within the past year. This history of substance abuse also primarily benzodiazepines. Patient does acknowledge suicidal ideation intent at the present time. However of interest patient states she is planning on leaving for [facility] run September 01 to reunite with his old "león" will be buying him a bus ticket. However at the present time I feel he does meet criteria for brief inpatient psychiatric stay. He has been on Wellbutrin and Seroquel at past with fairly good results. We will admit him to the 2600 unit we'll start him on Wellbutrin XL acknowledges 50 mg daily and Seroquel 20 mg at at bedtime. Because of his chronic use of benzodiazepines also place him on the ciwa protocol. Tobacco Use In Past 30 Days: 5 or More Cigarettes/Day Alcohol Use: 2-3 Times Per Week Hospital Course Patient's initial portion of the hospitalization showed isolation some irritability and withdrawal issues. However as he detoxed and show compliance with medication is moving his affect improved his verbalization improved. He stated he wanted to get away from the substance abuse in town. He did call his "allyjorge alberto" who lives in [facility]. She has arranged a bus ticket for him to go to [facility]. This is set for early tomorrow morning. At this time patient will order meets criteria for inpatient psychiatric hospitalization. He denies suicidality homicidality voices or visions. We have filled out 1 month supply of his medications for him. He wishes to be discharged later this afternoon. He states he will make his own way overnight so that he may be at the bus station early enough tomorrow morning to get on the bus in transit to [place]. Thus will be discharged today follow-up mental health care and addictions care in [facility] Results Blood Pressure 115 / 59 Vital Signs Date Time Temp Pulse Resp B/P (MAP) Pulse Ox O2 Delivery O2 Flow Rate FiO2 08/31/17 05:53 98.1 85 18 115/59 (77) 98 08/28/17 15:47 Room Air Urine toxicology positive for benzodiazepines and marijuana Summary of Procedures None done Pending results at discharge: No Medications # of Antipsychotic meds at D/C: 1 Approp Antipsych med options 1 - Minimum of three failed multiple trials of monotherapy. 2 - Documented plan to taper to monotherapy due to previous use of multiple meds OR cross-taper in progress at D/C. 3 - Documentation of augmentation of Clozapine. 4 - Justification other than those listed in allowable values 1-3, document here : Discharge Discharge Date: Aug 31, 2017 Discharge Diagnosis: (1) Adjustment disorder with depressed mood Diagnosis: Principal ICD Code: F43.21 - Adjustment disorder with depressed mood Status: Acute (2) Benzodiazepine abuse Diagnosis: Secondary ICD Code: F13.10 - Sedative, hypnotic or anxiolytic abuse, uncomplicated Pt Condition on Discharge: Stable Discharge Disposition: Discharge Home Discharge Instructions Diet Instructions: As Tolerated, No Restrictions Activities you can perform: Regular-No Restrictions Scheduled Appointment: Tomasa Norman Discharge Time > 30 minutes Mental Status Examination Appearance: Appropriate Consciousness: Lethargic Orientation: Person, Place, Date/Time, Situation Motor Activity: Normal gait Speech: Hesitant, Slow Language: Adequate Fund of Knowledge: Adequate Attention and Concentration: Other (fair) Memory: Unremarkable Mood: Sad, Irritable Affect: Other (decreased range increase intensity) Thought Process & Associations: Linear Thought Content: Appropriate, Bizarre thinking Hallucination Type: None Delusion Type: None Suicidal Ideation: Yes Suicidal Plan: Yes Suicidal Intention: Yes Homicidal Ideation: No Homicidal Plan: No Homicidal Intention: No Insight: Poor Judgment: Poor Discharge/Advance Care Plan Health Problems: (1) Benzodiazepine abuse (2) Adjustment disorder with depressed mood Goals to promote your health * To prevent worsening of your condition and complications * To maintain your health at the optimal level Directions to meet your goals Take your medications as prescribed Follow your dietary instruction Follow activity as directed Keep your appointments as scheduled Take your immunizations and boosters as scheduled If your symptoms worsen call your PCP, if no PCP go to Urgent Care Center or Emergency Room For 28/03 questions related to your inpatient stay or results of tests pending at discharge, please contact Dr. Eugene Oropeza at Smoking is Dangerous to Your Health. Avoid second hand smoking Eugene Oropeza MD Aug 31, 2017 12:47
== END 2017-08-31 15:45 | disposition home or self-care (01) | DRG 881 ==
LOC: NEPJ 01:06 → NEDA 15:19 → H260 17:08
PROVIDERS: ADMIT Psychiatry & Neurology Psychiatry; ATTEND Psychiatry & Neurology Psychiatry
DX: F43.21 Adjustment disorder with depressed mood (principal); R45.851 Suicidal ideations; I10 Essential (primary) hypertension; D72.829 Elevated white blood cell count, unspecified; S61.511A Laceration without foreign body of right wrist, initial encounter; T42.4X1A Poisoning by benzodiazepines, accidental (unintentional), initial encounter; S61.512A Laceration without foreign body of left wrist, initial encounter; J45.909 Unspecified asthma, uncomplicated; X78.8XXA Intentional self-harm by other sharp object, initial encounter; F13.10 Sedative, hypnotic or anxiolytic abuse, uncomplicated; F17.210 Nicotine dependence, cigarettes, uncomplicated; Z88.0 Allergy status to penicillin; Z88.5 Allergy status to narcotic agent
CPT/HCPCS: 80053; 80307; 85025; 85610; 85730; 93005; 96360; J7030; Q0163